=== PATIENT | female | born 1950 | race Caucasian/White ===

== ENCOUNTER → 2017-10-09 08:52 | Outpatient (CLI) | payer MEDICARE, OTHER, SELFPAY ==
--- NOTE | 2017-10-09 08:56 | US_ITS ---
US abdomen limited HISTORY: Right upper quadrant pain ITS.REASON: ABD PAIN,CRAMPING ORDERING PHYSICIAN: Carlton Wyatt PATIENT AGE: 67 years Comparison: None FINDINGS: PANCREAS: Unremarkable. No obvious mass or abnormal fluid collection. No ductal dilatation LIVER: No focal liver lesions demonstrated. Homogeneous echogenicity. No intrahepatic biliary ductal dilatation evident RIGHT KIDNEY: Unremarkable. Normal size and echogenicity. No hydronephrosis GALLBLADDER: There are 2 hyperechoic areas along the posterior aspect of the gallbladder wall. These do not shadow and could be either related to nonshadowing stones or polyps. They were not observed to move during the exam. Common bile duct is normal at 3 mm. No gallbladder wall thickening, pericholecystic fluid, or biliary dilatation. IMPRESSION: 1. Possible nonshadowing stones versus small gallbladder polyps measuring up to 5 mm. 2. Otherwise negative right upper quadrant ultrasound
== END ==
PROVIDERS: Family Provider Internal Medicine; PCP Internal Medicine; Visit Provider Internal Medicine
DX: R10.9 Unspecified abdominal pain (principal)
CPT/HCPCS: 76705

== ENCOUNTER → 2017-10-19 07:45 | Outpatient (CLI) | payer MEDICARE, OTHER, SELFPAY ==
[2017-10-19 07:50] LABS: Adenovirus F 40/41, stool Not Detected (NotDetected); Astrovirus Not Detected (NotDetected); Campylobacter Not Detected (NotDetected); Clostridium Difficile A/B, PCR Not Detected (NotDetected); Cryptosporidium Not Detected (NotDetected); Cyclospora Cayetanesis Not Detected (NotDetected); Entamoeba histolytica Not Detected (NotDetected); Enteroaggregative E coli Not Detected (NotDetected); Enteropathogenic E coli Not Detected (NotDetected); Enterotoxigenic E coli Not Detected (NotDetected); Giardia lamblia Not Detected (NotDetected); Norovirus Not Detected (NotDetected); Plesimonas Shigalloides, PCR Not Detected (NotDetected); Rotavirus A Not Detected (NotDetected); Salmonella, PCR Not Detected (NotDetected); Sapovirus Not Detected (NotDetected); Shiga-like toxin E coli Not Detected (NotDetected); Shigella Enterovasive E coli Not Detected (NotDetected); Vibrio Cholerae Not Detected (NotDetected); Vibrio, PCR Not Detected (NotDetected); Yersinia Entercolitica, PCR Not Detected (NotDetected)
== END ==
PROVIDERS: Visit Provider Surgery
DX: R14.0 Abdominal distension (gaseous) (principal); R19.7 Diarrhea, unspecified; R11.0 Nausea; K80.20 Calculus of gallbladder without cholecystitis without obstruction
CPT/HCPCS: 87507

== ENCOUNTER → 2017-10-30 12:32 | Outpatient (POV) | payer MEDICARE, OTHER, SELFPAY | PROVIDERS: Visit Provider Nurse Practitioner Acute Care | DX: Z00.00 Encounter for general adult medical examination without abnormal findings (principal) ==

== ENCOUNTER → 2017-11-08 11:56 | Outpatient (CLI) | payer MEDICARE, OTHER, SELFPAY ==
[2017-11-08 12:21] LABS: Eosinophils # 0.1 K/mm3 (0.0-0.4); Eosinophils % 3.1 % (0.1-12.0); Hematocrit 38.1 % (37.0-47.0); Hemoglobin 12.6 g/dL (12.2-16.2); Lymphocytes # 1.1 K/mm3 (0.7-4.5); Lymphocytes % 25.8 K/mm3 (10-50); Mean Platelet Volume 6.5 fl (7.4-10.4); Monocytes # 0.3 K/mm3 (0.1-1.0); Monocytes % 5.6 % (1.7-9.3); Neutrophils # 2.8 K/mm3 (1.8-7.8); Neutrophils % 64.5 % (37.0-80.0); Platelet Count 235 K/mm3 (142-424); Red Blood Count 4.33 M/mm3 (4.20-5.40); Red Cell Distribution Width 12.8 % (11.5-17.5); White Blood Count 4.4 K/mm3 (4.8-10.8)
[2017-11-08 13:08] LABS: Alanine Aminotransferase 34 U/L (12-78); Albumin/Globulin Ratio 1.3 (1.1-1.8); Alkaline Phosphatase 48 U/L (46-116); Anion Gap 10.8 mEq/L (5-15); Aspartate Amino Transferase 30 U/L (15-37); Bilirubin,Total 0.3 mg/dL (0.2-1.0); Blood Urea Nitrogen 21 mg/dL (7-18); Calcium 9.8 mg/dL (8.5-10.1); Carbon Dioxide 30 mmol/L (21.0-32.0); Chloride 96 mmol/L (98-107); Estimated Glomerular Filt Rate 50 ml/min (>60); GFR (African American) 60 ML/MIN (>60); Globulin 3.1 gm/dl (1.3-3.2); Glucose 96 mg/dL (74-106); Potassium 3.8 mmoL/L (3.5-5.1); Sodium 133 mmol/L (136-145); Total Protein,Serum 7.1 gm/dL (6.4-8.2)
== END ==
PROVIDERS: Visit Provider Surgery
DX: Z01.818 Encounter for other preprocedural examination (principal); K80.20 Calculus of gallbladder without cholecystitis without obstruction
CPT/HCPCS: 36415; 80053; 85025

== ENCOUNTER → 2017-12-21 13:09 | Outpatient (POV) | payer MEDICARE, OTHER, SELFPAY | PROVIDERS: Family Provider Internal Medicine; PCP Internal Medicine; Visit Provider Dermatology | DX: Z00.00 Encounter for general adult medical examination without abnormal findings (principal) ==

== ENCOUNTER → 2018-04-16 12:43 | Outpatient (POV) | payer MEDICARE, OTHER, SELFPAY | PROVIDERS: Visit Provider Nurse Practitioner Acute Care | DX: Z00.00 Encounter for general adult medical examination without abnormal findings (principal) ==

== ENCOUNTER → 2018-07-16 15:18 | Outpatient (POV) | payer MEDICARE, OTHER, SELFPAY | PROVIDERS: Visit Provider Nurse Practitioner Acute Care | DX: Z00.00 Encounter for general adult medical examination without abnormal findings (principal) ==

== ENCOUNTER → 2018-08-21 11:02 | Outpatient (CLI) | payer MEDICARE, OTHER, SELFPAY ==
--- NOTE | 2018-08-21 11:09 | XR_ITS ---
XR toe LT min 2V COMPARISON: None HISTORY: Pain and bruising to great toe TECHNIQUE: AP lateral and oblique views FINDINGS: There is mild diffuse soft tissue swelling medial aspect of the forefoot. The first metatarsal and proximal distal phalanx of the great toe appear intact with no evidence of recent or old fracture. There are no foreign bodies. IMPRESSION: Mild soft tissue swelling along the medial forefoot and about the first metatarsal head, no fracture seen
== END ==
PROVIDERS: PCP Internal Medicine; Visit Provider Internal Medicine
DX: M79.675 Pain in left toe(s) (principal)
CPT/HCPCS: 73660

== ENCOUNTER → 2018-10-30 13:36 | Outpatient (POV) | payer MEDICARE, OTHER, SELFPAY | PROVIDERS: Visit Provider Dermatology | DX: Z00.00 Encounter for general adult medical examination without abnormal findings (principal) ==

== ENCOUNTER → 2019-06-24 10:25 | Outpatient (POV) | payer MEDICARE, OTHER, SELFPAY | PROVIDERS: Visit Provider Nurse Practitioner Family | DX: Z00.00 Encounter for general adult medical examination without abnormal findings (principal) ==

== ENCOUNTER → 2019-10-24 10:21 | Outpatient (CLI) | payer MEDICARE, OTHER, SELFPAY ==
[2019-10-24 14:10] LABS: Coronavirus 19 IgG Antibody Negative (Negative); Coronavirus 19 IgM Antibody Negative (Negative)
== END ==
PROVIDERS: Visit Provider Internal Medicine Gastroenterology
DX: Z01.818 Encounter for other preprocedural examination (principal); Z12.11 Encounter for screening for malignant neoplasm of colon
CPT/HCPCS: 36415; 86328

== ENCOUNTER 2019-10-25 06:53 | Day surgery (SDC) | payer MEDICARE, OTHER, SELFPAY ==
[2019-10-22 10:28] VITALS: BMI 21.1
--- NOTE | 2019-10-23 09:34 | SUR.PREOP ---
10/23/2019 @ 4869--PHONE CALL MADE TO PATIENT. PATIENT UNDERSTANDS THAT LAB WORK AND COVID TESTING NEEDS TO BE COMPLETED @ 1030 ON 10/24/2019. PATIENT UNDERSTANDS IF LAB WORK AND COVID-19 TESTS ARE NOT COMPLETED BY 12PM ON THAT DATE, THE SURGERY SCHEDULED WILL BE CANCELLED AND RESCHEDULED FOR ANOTHER TIME.
[2019-10-25] VITALS (7 sets, daily range): BP systolic 87–127; BP diastolic 48–78; PULSE 59–70; RESP 16–18; TEMP 36.1–36.8; O2SAT 94–100
--- NOTE | 2019-10-25 08:02 | HMH.ANESCL ---
[facility] Anesthesia Checklist - Structural Data Admitted From: Home Planned Operative Procedure/s: colonoscopy Consent for Planned Operative Procedure(s) Verified: Yes - Additional verifications Anesthesia Reactions: No Hx Blood Transfusions: No Blood Transfusion Reaction: No - Airway Assessment C-Spine Mobility Assessed: Yes TMJ Mobility Assessed: Yes Dentition: Good Dentition - Neurological Assessment Level of Consciousness: Awake, Alert, Appropriate - Anesthesia Plan Anesthesia Risk discussed: Yes Anesthesia Plan: Verified ASA Class: II Anesthesia Type: MAC [facility] History I have reviewed the patient's past medical history: Yes Medical History: Reports:: Hyperlipidemia, Hypertension Denies:: Cancer, Diabetes Mellitus Type 1, Diabetes Mellitus Type 2, Internal Pacemaker, MRSA, Seizures *Have you ever received a pneumonia vaccine?: Yes *Have you received a flu vaccine this season?: Yes Other Medical History: Reports: Hypothyroidism, Other. Denies: Blood Transfusion Reaction Anesthesia experience/problems:: none Laterality Cases: Right: Total Hip Replacement, Bilateral: Other Other Surgeries: Yes: , Other. No: Pacemaker Amputation: No Fractures: No - *Social History Smoking Status: Never smoker Alcohol Intake: never Substance Use Type: denies use *Occupational Status:: retired Housing: house *Travel in the last 8 weeks: None Family Hx:: Coronary Artery Disease, Heart Attack
--- NOTE | 2019-10-25 08:07 | HMH.PROC ---
[facility] Procedure Note Procedure Note:: Colonoscopy Procedure Report: Colonoscopy with cold snare polypectomy Endoscopist: Chong Mcpherson II, MD Referring physician: Carlton Wyatt MD Date of Procedure: October 25, 2019 Equipment: Olympus 180 variable stiffness pediatric colonoscope Sedation: MAC sedation Indication: Mrs. Walton is a 69-year-old female who is here for follow-up surveillance/screening colonoscopy. The patient's last colonoscopy was 5 years ago (Dr. Darian Hernandez in [place]) and was normal without polyps. The patient will have occasional constipation and this may be followed by several days or sometimes more than a week of diarrhea. She has had more diarrhea recently. In the past she is tried probiotics, fiber, WelChol and Xifaxan. The patient reports no rectal bleeding, weight loss or family history of colon cancer. She does get some abdominal discomfort if she is constipated. She did have an EGD with me in October 2017 and was found to have very short segment Diane's esophagus (single tongue of salmon-colored mucosa). She is on Prevacid once or twice daily. Procedure: Prior to the procedure, a history and physical exam was performed, and patient's medications and allergies were reviewed. The risks, benefits and alternatives of the sedation and procedure were discussed with the patient. All questions were answered and informed consent was obtained. The patient was brought to the procedure room. Patient identification and proposed procedure were verified by the physician and the nurse. The patient was placed in a left lateral decubitus position and the scope was passed under direct vision. Throughout the procedure, the patient's blood pressure, pulse, and oxygen saturations were monitored continuously. The colonoscopy was accomplished without difficulty. The patient tolerated the procedure well. Findings: On digital rectal examination there was normal rectal tone. There were no external hemorrhoids. The colonoscope was introduced through the anal canal to the rectum and advanced to the cecum. The ileocecal valve and appendiceal orifice were identified. The scope was advanced a short distance into the ileum which appeared grossly normal. The scope was then withdrawn into the colon. The cecum was normal. There was a diminutive 3 mm polyp in the ascending colon. There was a 2 mm polyp in the descending colon. Both of these were removed via cold snare polypectomy. The remainder of the colonic mucosa was normal. Upon retroflexion within the rectum there were grade 1 internal hemorrhoids.The preparation was excellent throughout with [place] Preparation Score of 9. The cecal time was 10 minutes. Impression: 1. Diminutive colonic polyps x2 Plan: I will follow up the polyp pathology and recommend repeat colonoscopy again in 7-10 years based upon the polyp histology. We will discuss additional treatment for the patient's IBS. I would encourage bulk fiber.
== END 2019-10-25 09:25 | disposition home or self-care (01) ==
LOC: OUTP 06:55
PROVIDERS: PCP Internal Medicine; Visit Provider Internal Medicine Gastroenterology
PROC: 0DJD8ZZ Inspection of Lower Intestinal Tract, Via Natural or Artificial Opening Endoscopic (ICD-10-PCS; CPT 45378; principal; 2019-10-25 08:00)
DX: Z12.11 Encounter for screening for malignant neoplasm of colon (principal); K63.5 Polyp of colon; K64.0 First degree hemorrhoids; I10 Essential (primary) hypertension; E78.5 Hyperlipidemia, unspecified; K21.9 Gastro-esophageal reflux disease without esophagitis; J45.909 Unspecified asthma, uncomplicated; D64.9 Anemia, unspecified; E03.9 Hypothyroidism, unspecified; Z82.49 Family history of ischemic heart disease and other diseases of the circulatory system; Z96.641 Presence of right artificial hip joint; Z79.899 Other long term (current) drug therapy
CPT/HCPCS: 45385; 88305; J2704

== ENCOUNTER → 2019-12-10 10:18 | Outpatient (CLI) | payer MEDICARE, OTHER, SELFPAY ==
[2019-12-10 10:24] LABS: Adenovirus F 40/41, stool Not Detected (NotDetected); Astrovirus Not Detected (NotDetected); Campylobacter Not Detected (NotDetected); Clostridium Difficile A/B, PCR Not Detected (NotDetected); Cryptosporidium Not Detected (NotDetected); Cyclospora Cayetanesis Not Detected (NotDetected); Entamoeba histolytica Not Detected (NotDetected); Enteroaggregative E coli Not Detected (NotDetected); Enteropathogenic E coli Not Detected (NotDetected); Giardia lamblia Not Detected (NotDetected); Norovirus Not Detected (NotDetected); Plesimonas Shigalloides, PCR Not Detected (NotDetected); Rotavirus A Not Detected (NotDetected); Salmonella, PCR Not Detected (NotDetected); Sapovirus Not Detected (NotDetected); Shigella Enterovasive E coli Not Detected (NotDetected); Vibrio Cholerae Not Detected (NotDetected); Vibrio, PCR Not Detected (NotDetected); Yersinia Entercolitica, PCR Not Detected (NotDetected)
[2019-12-10 17:14] LABS: Enterotoxigenic E coli Detected (NotDetected); Shiga-like toxin E coli Detected (NotDetected)
== END ==
PROVIDERS: Visit Provider Internal Medicine
DX: R19.7 Diarrhea, unspecified (principal); A04.2 Enteroinvasive Escherichia coli infection; A04.1 Enterotoxigenic Escherichia coli infection; B96.21 Shiga toxin-producing Escherichia coli [E. coli] [STEC] O157 as the cause of diseases classified elsewhere
CPT/HCPCS: 87177; 87205; 87506

== ENCOUNTER 2019-12-10 14:00 | Outpatient (RCR) | payer MEDICARE, OTHER, SELFPAY | END 2019-12-10 14:05 | disposition home or self-care (01) | LOC: PT 14:00 | PROVIDERS: PCP Internal Medicine; Visit Provider Physician Assistant Surgical | DX: Z98.890 Other specified postprocedural states (principal); M25.551 Pain in right hip | CPT/HCPCS: 97110; 97163 ==

== ENCOUNTER → 2019-12-23 09:21 | Outpatient (POV) | payer MEDICARE, OTHER, SELFPAY | PROVIDERS: Visit Provider Nurse Practitioner Family | DX: Z00.00 Encounter for general adult medical examination without abnormal findings (principal) ==

== ENCOUNTER → 2020-03-17 11:02 | Outpatient (POV) | payer MEDICARE, OTHER, SELFPAY | PROVIDERS: Visit Provider Dermatology | DX: Z00.00 Encounter for general adult medical examination without abnormal findings (principal) ==

== ENCOUNTER → 2020-05-25 10:11 | Outpatient (CLI) | payer MEDICARE, OTHER, SELFPAY ==
--- NOTE | 2020-05-25 10:24 | XR_ITS ---
PROCEDURE: XR LUMBAR SPINE MIN 4V CLINICAL INDICATION: LOW BACK PAIN/ STIFFNESS COMPARISON: CR LS5 LUMBAR SPINE 5 VIEWS from 07/18/2016 FINDINGS: No fracture or dislocation. No lytic or blastic change. There is normal mineralization. There is mild sclerosis of the superior endplate at L4-L3 and L2 with some cortical irregularity. Mild facet arthritic changes are present at L3-L4 and L5. There has been a total right hip replacement. Prior cholecystectomy. Other findings:None. IMPRESSION: Mild degenerative changes lumbar spine as described above Dictated by: Bryan Carreon MD 05/25/2020 16:47 Bryan Carreon MD in [place] 05/25/2020 16:47
== END ==
PROVIDERS: PCP Internal Medicine; Visit Provider Internal Medicine
DX: M54.5 Low back pain (principal)
CPT/HCPCS: 72110

== ENCOUNTER → 2020-06-08 10:56 | Outpatient (CLI) | payer MEDICARE, OTHER, SELFPAY ==
--- NOTE | 2020-06-08 | XR_ITS ---
PROCEDURE: XR SHOULDER RT MIN 2V CLINICAL INDICATION: BILATERAL SHOULDER PAIN COMPARISON: No exams were available for comparison FINDINGS: No fracture or dislocation. No lytic or blastic change. There is normal mineralization. There are mild osteoarthritic changes the acromioclavicular joint with mild periarticular calcification superiorly. The glenohumeral joint has an unremarkable appearance. Other findings:None. IMPRESSION: Minimal osteoarthritic change of the acromioclavicular joint with mild periarticular calcification Dictated by: Bryan Carreon MD 06/08/2020 11:59 Bryan Carreon MD in [place] 06/08/2020 11:59
--- NOTE | 2020-06-08 | XR_ITS ---
PROCEDURE: XR SHOULDER LT MIN 2V CLINICAL INDICATION: BILATERAL SHOULDER PAIN COMPARISON: No exams were available for comparison FINDINGS: No fracture or dislocation. No lytic or blastic change. There is normal mineralization. There are mild osteoarthritic changes of the acromioclavicular joint with minimal periarticular ossification superiorly. The glenohumeral joint has an unremarkable appearance. Other findings:None. IMPRESSION: Mild osteoarthritis the acromioclavicular joint Dictated by: Bryan Carreon MD 06/08/2020 11:55 Bryan Carreon MD in [place] 06/08/2020 11:55
== END ==
PROVIDERS: PCP Internal Medicine; Visit Provider Internal Medicine
DX: M25.512 Pain in left shoulder (principal); M25.511 Pain in right shoulder
CPT/HCPCS: 73030

== ENCOUNTER → 2020-06-22 10:37 | Outpatient (CLI) | payer MEDICARE, OTHER, SELFPAY ==
[2020-06-22 11:31] LABS: Erythrocyte Sedimentation Rate 77 mm/hr (0-30)
[2020-06-22 11:45] LABS: C-Reactive Protein 76.2 mg/L (0-4)
== END ==
PROVIDERS: Visit Provider Internal Medicine
DX: M54.2 Cervicalgia (principal); M25.511 Pain in right shoulder
CPT/HCPCS: 36415; 85651; 86140

== ENCOUNTER → 2020-06-22 11:03 | Outpatient (POV) | payer MEDICARE, OTHER, SELFPAY | PROVIDERS: Visit Provider Nurse Practitioner Family | DX: Z00.00 Encounter for general adult medical examination without abnormal findings (principal) ==

== ENCOUNTER → 2020-06-23 10:47 | Outpatient (CLI) | payer MEDICARE, OTHER, SELFPAY ==
[2020-06-27 04:19] LABS: QuantiFERON-TB Gold Plus Negative (Negative)
== END ==
PROVIDERS: Visit Provider Internal Medicine
DX: M35.3 Polymyalgia rheumatica (principal)
CPT/HCPCS: 36415; 86480

== ENCOUNTER → 2020-07-20 11:22 | Outpatient (CLI) | payer MEDICARE, OTHER, SELFPAY ==
[2020-07-20 11:53] LABS: Basophils # 0.1 K/mm3 (0-0.2); Basophils % 0.7 % (0.1-2.0); Eosinophils # 0.1 K/mm3 (0.0-0.4); Eosinophils % 0.9 % (0.1-12.0); Hematocrit 36.9 % (37.0-47.0); Hemoglobin 12.4 g/dL (12.2-16.2); Lymphocytes # 2.9 K/mm3 (0.7-4.5); Lymphocytes % 27.5 % (10-50); Mean Corpuscular HGB Conc 33.6 g/dL (31.8-35.4); Mean Corpuscular Hemoglobin 30.3 pg (27.0-31.2); Mean Corpuscular Volume 90.2 fl (81-99); Mean Platelet Volume 7.1 fl (7.4-10.4); Monocytes # 0.6 K/mm3 (0.1-1.0); Monocytes % 5.7 % (1.7-9.3); Neutrophils # 6.9 K/mm3 (1.8-7.8); Neutrophils % 65.3 % (37.0-80.0); Platelet Count 319 K/mm3 (142-424); Red Blood Count 4.08 M/mm3 (4.20-5.40); Red Cell Distribution Width 14.2 % (11.5-17.5); White Blood Count 10.5 K/mm3 (4.8-10.8)
[2020-07-20 12:37] LABS: Chloride 96 mmol/L (98-107); Potassium 4.1 mmoL/L (3.5-5.1); Sodium 133 mmol/L (136-145)
[2020-07-20 12:40] LABS: Anion Gap 10.1 mEq/L (5-15); Blood Urea Nitrogen 30 mg/dl (7-17); Carbon Dioxide 31 mmol/L (22.0-30.0); Estimated Glomerular Filt Rate 45 ml/min (>60); GFR (African American) 54 ML/MIN (>60)
[2020-07-20 12:41] LABS: Calcium 10.4 mg/dl (8.4-10.2); Glucose 87 mg/dl (74-100)
[2020-07-20 13:01] LABS: Erythrocyte Sedimentation Rate 23 mm/hr (0-30)
[2020-07-20 13:13] LABS: Thyroid Stimulating Hormone 0.07 uIU/mL (0.465-4.68)
== END ==
PROVIDERS: Visit Provider Internal Medicine
DX: M35.3 Polymyalgia rheumatica (principal); E03.9 Hypothyroidism, unspecified; I10 Essential (primary) hypertension
CPT/HCPCS: 36415; 80048; 84443; 85025; 85651

== ENCOUNTER 2020-08-04 10:00 | Outpatient (RCR) | payer MEDICARE, OTHER, SELFPAY | END 2020-12-02 14:45 | disposition home or self-care (01) | LOC: PT 10:00 | PROVIDERS: PCP Internal Medicine; Visit Provider Internal Medicine | DX: M25.512 Pain in left shoulder (principal); M25.511 Pain in right shoulder | CPT/HCPCS: 97010; 97014; 97033; 97035; 97110; 97163; 97164; G0283 ==

== ENCOUNTER → 2020-10-17 10:24 | Outpatient (CLI) | payer MEDICARE, OTHER, SELFPAY ==
[2020-10-17 10:38] LABS: Adenovirus F 40/41, stool Not Detected (NotDetected); Astrovirus Not Detected (NotDetected); Campylobacter Not Detected (NotDetected); Clostridium Difficile A/B, PCR Not Detected (NotDetected); Cryptosporidium Not Detected (NotDetected); Cyclospora Cayetanesis Not Detected (NotDetected); Entamoeba histolytica Not Detected (NotDetected); Enteroaggregative E coli Not Detected (NotDetected); Enteropathogenic E coli Not Detected (NotDetected); Enterotoxigenic E coli Not Detected (NotDetected); Giardia lamblia Not Detected (NotDetected); Norovirus Not Detected (NotDetected); Plesimonas Shigalloides, PCR Not Detected (NotDetected); Rotavirus A Not Detected (NotDetected); Salmonella, PCR Not Detected (NotDetected); Sapovirus Not Detected (NotDetected); Shiga-like toxin E coli Not Detected (NotDetected); Shigella Enterovasive E coli Not Detected (NotDetected); Vibrio Cholerae Not Detected (NotDetected); Vibrio, PCR Not Detected (NotDetected); Yersinia Entercolitica, PCR Not Detected (NotDetected)
== END ==
PROVIDERS: Visit Provider Internal Medicine Gastroenterology
DX: R19.7 Diarrhea, unspecified (principal); R15.2 Fecal urgency
CPT/HCPCS: 87507

== ENCOUNTER → 2020-11-09 13:54 | Outpatient (POV) | payer MEDICARE, OTHER, SELFPAY | PROVIDERS: Visit Provider Nurse Practitioner Family | DX: Z00.00 Encounter for general adult medical examination without abnormal findings (principal) ==

== ENCOUNTER 2021-01-28 09:08 | Emergency (ER) | payer MEDICARE, OTHER, SELFPAY ==
[2021-01-28 09:15] VITALS: BP 126/68; PULSE 88; RESP 18; TEMP 36.8; O2SAT 99; BMI 20.2
--- NOTE | 2021-01-28 09:54 | HMH.EDUTC ---
[facility] [place] Clinical Impression: Bronchitis Sinusitis Qualifiers: Sinusitis location: unspecified location Chronicity: unspecified Qualified Code(s): J32.9 - Chronic sinusitis, unspecified Disposition: Home, Self-Care Condition on Discharge: Good Instructions: Sinusitis, DI for Sinusitis, Acute Bronchitis Additional Instructions: *Monitor Temp, Over the counter Motrin or Tylenol as directed/as needed Tylenol every 4 hours and Motrin every 6 hours (as long as your family doctor has told you that you can take it) for fever or pain. and straight to ER if unable to lower temp less than 101.0 after medication given *Warm salt water gargles may help to soothe the throat *Throat Lozenges *Warm fluids like tea with honey may help to soothe the throat *Sleep elevated *Humidifier/Vaporizer Follow up IMMEDIATELY for new or worsening symptoms or no Noticeable improvement over the next 48-72 hours. 911 for difficulty breathing or swallowing You were tested for today for COVID19 your test result should be back in the next 24-48 hours, you may call to the [facility] [[email or web address]] to see if your test results are back in the next 48 hours [phone] [facility] [[email or web address]] hours are 9am-9pm You was given a handout with instructions for Self Quarantine and Self isolation for while you wait on test results and what to do if they are positive If you are positive the Health Dept will be contacting you also Make sure to take your Vitamins Vit. C Vit D and Zinc if you can take them Prescriptions: Azithromycin [Z-Nico 250mg Tab] 250 mg PO DIRECTED #6 tab Transmission Status: Pending to [facility] Referrals: Carlton Wyatt [Primary Care Provider] - As needed Time of Disposition: 10:05 Medical Decision Making - Abe Inquiry Pt receiving controlled substance: No Abe was queried for this patient: No Vital Signs: 01/28/21 09:15 Temperature 98.2 F Temperature Source Oral Pulse Rate [Right Brachial] 88 Respiratory Rate 18 Blood Pressure [Right Arm] 126/68 Blood Pressure Mean [Right Arm] 87 Blood Pressure Source [Right Arm] Automatic Cuff Blood Pressure Position [Right Arm] Sitting 02 Sat by Pulse Oximetry 99 Oxygen Delivery Method Room Air Orders (Tests/Meds): ORDERS Category Date Time Status Covid-19 Nasal PCR ([facility]) Routine Lab 01/28/21 09:34 Received Medical Decision Narrative: patient state that she has taken azithromycin before without complications or reactions [facility] [place]PI - General Stated complaint: cough, runny nose Time Seen by Provider: 01/28/21 09:54 Mode of Arrival: Ambulatory Source of Information: Patient Limitations: No Limitations Description of Symptoms (Recalled from Triage Doc. by RN): PATIENT C/O COUGH AND RUNNY NOSE. REQUESTING COVID TEST. STATES HER DAUGHTER GOT OUT OF QUARANTINE LAST WEEK HEENT Symptoms (Recalled from RN notes): Yes Resp Symptoms (Recalled from RN notes): No Skin Symptoms (Recalled from RN notes): No MS Symptoms (Recalled from RN notes): No Functional Status (Recalled from RN notes): WNL - History of Present Illness Provider Complaint: Patient states that she has been having sinus congestion and pressure off and on for over a week State that for the last several days she has been having runny nose and cough States that feels like when she gets bronchitis but her daughter recently tested positive for COVID and just got off quarantine so she wanted to get checked to make sure she didnt have it - Related Data Home Medications Medication Instructions Recorded Confirmed Atorvastatin Calcium [Atorvastatin 20 mg PO WEEKLY 09/22/17 02/27/20 20mg Tab] Telmisartan [Micardis] 20 mg PO DAILY 09/22/17 02/27/20 levothyroxine 75 mcg tablet 88 mcg PO DAILY tab 10/18/17 02/27/20 lorazepam 0.5 mg tablet 1 mg PO DAILY tab 10/18/17 02/27/20 Multivitamin [Multivitamins] 1 each PO DAILY 12/21/17 02/27/20 Potassium Citrate [Urocit-K] 10 meq PO BID 12/21/17 02/27/20 l Gasseri/B Bifidum/B Longum 1 each P
[2021-01-28 10:10] VITALS: BP 126/68; PULSE 88; RESP 18; TEMP 36.8; O2SAT 99
== END 2021-01-28 10:13 | disposition home or self-care (01) ==
PROVIDERS: Emergency Provider Nurse Practitioner; PCP Internal Medicine
DX: J20.9 Acute bronchitis, unspecified (principal); J32.9 Chronic sinusitis, unspecified; Z20.822 Contact with and (suspected) exposure to COVID-19; E78.5 Hyperlipidemia, unspecified; I10 Essential (primary) hypertension; E03.9 Hypothyroidism, unspecified
CPT/HCPCS: G0463; 99202; U0003

== ENCOUNTER → 2021-02-15 13:11 | Outpatient (CLI) | payer MEDICARE, OTHER, SELFPAY ==
[2021-02-15 14:20] LABS: Basophils # 0.1 K/mm3 (0-0.2); Basophils % 0.5 % (0.1-2.0); Eosinophils % 0.3 % (0.1-12.0); Hematocrit 32.6 % (37.0-47.0); Hemoglobin 10.7 g/dL (12.2-16.2); Lymphocytes # 1.2 K/mm3 (0.7-4.5); Lymphocytes % 9.6 % (10-50); Mean Corpuscular HGB Conc 32.8 g/dL (31.8-35.4); Mean Corpuscular Hemoglobin 30.3 pg (27.0-31.2); Mean Corpuscular Volume 92.4 fl (81-99); Monocytes # 0.7 K/mm3 (0.1-1.0); Monocytes % 5.3 % (1.7-9.3); Neutrophils # 10.5 K/mm3 (1.8-7.8); Neutrophils % 84.4 % (37.0-80.0); Platelet Count 473 K/mm3 (142-424); Red Blood Count 3.53 M/mm3 (4.20-5.40); Red Cell Distribution Width 13.4 % (11.5-17.5); White Blood Count 12.4 K/mm3 (4.8-10.8)
[2021-02-15 15:20] LABS: Erythrocyte Sedimentation Rate > 140 mm/hr (0-30)
[2021-02-15 15:27] LABS: Alanine Aminotransferase 21 U/L (12-78); Albumin Level 3.9 g/dl (3.5-5.0); Albumin/Globulin Ratio 1.3 (1.1-1.8); Alkaline Phosphatase 61 U/L (38-126); Anion Gap 12.9 mEq/L (5-15); Aspartate Amino Transferase 29 U/L (14-36); Bilirubin,Total 0.4 mg/dl (0.2-1.3); Blood Urea Nitrogen 20 mg/dl (7-17); Calcium 10.2 mg/dl (8.4-10.2); Carbon Dioxide 30 mmol/L (22.0-30.0); Chloride 91 mmol/L (98-107); Estimated Glomerular Filt Rate 55 ml/min (>60); GFR (African American) 66 ML/MIN (>60); Glucose 106 mg/dl (74-100); Potassium 3.9 mmoL/L (3.5-5.1); Sodium 130 mmol/L (136-145); Total Protein,Serum 6.9 g/dl (6.3-8.2)
[2021-02-15 15:33] LABS: C-Reactive Protein 128.6 mg/L (0-4)
== END ==
PROVIDERS: Visit Provider Nurse Practitioner Family
DX: M35.3 Polymyalgia rheumatica (principal)
CPT/HCPCS: 36415; 80053; 85025; 85651; 86140

== ENCOUNTER 2021-02-20 17:29 | Emergency (ER) | payer MEDICARE, OTHER, SELFPAY ==
[2021-02-20 17:40] VITALS: BP 132/74; PULSE 89; RESP 18; TEMP 36.8; O2SAT 98; BMI 20.2
[2021-02-20 18:00] VITALS: BP 145/81; PULSE 89; RESP 16; O2SAT 100; BMI 20.2
[2021-02-20 18:01] VITALS: BMI 20.2
--- NOTE | 2021-02-20 18:01 | XR_ITS ---
PROCEDURE INFORMATION: Exam: XR Chest Exam date and time: 02/20/2021 6:01 PM Age: 71 years old Clinical indication: Cough; Additional info: Chest pain TECHNIQUE: Imaging protocol: XR of the chest. Views: 2 views. COMPARISON: CR CXR CHEST(2 VIEWS-NOT PORTABLE) 07/22/2016 10:47 AM FINDINGS: Lungs: Hyperexpanded lungs with flattening of the diaphragm and increased retrosternal airspace, consistent with chronic air trapping. Chronic bronchial thickening. No appreciable pulmonary edema. No consolidation. Pleural spaces: Chronic blunting of the costophrenic sulci likely reflects pleuroparenchymal scarring. No definite pleural effusion. No pneumothorax. Heart/Mediastinum: Cardiomediastinal silhouette is unchanged. Bones/joints: No acute osseous abnormality. Soft tissues: Unremarkable. IMPRESSION: 1. No evidence of acute cardiopulmonary disease. 2. Chronic pulmonary findings compatible with COPD.
--- NOTE | 2021-02-20 18:03 | ECG_ITS ---
APPROVED REPORT Exam: Resting ECG HR:78 bpm ECG Measurements Heart Rate 78 AXES MA 168 P 72 QRSd 82 QRS 4 QT 370 T 68 QTc 421 Conclusion Normal sinus rhythm with sinus arrhythmia Normal ECG Electronically signed by : Amadeo Cooper MD 02/21/2021 09:17:43
--- NOTE | 2021-02-20 18:04 | HMH.EDGENADL ---
ED Disposition Clinical Impression: Atypical chest pain Disposition: Home, Self-Care Condition on Discharge: Good Instructions: DI for Atypical Chest Pain Additional Instructions: Additional instructions for CHEST PAIN: See your physician as soon as possible for further evaluation. Return immediately if worsening chest pain, vomiting, shortness of breath, fever, coughing of blood. Referrals: Carlton Wyatt [Primary Care Provider] - - Critical Care Critical Care Time: No Attestation: On 02/20/21, the high probability of a clinically significant, sudden or life threatening deterioration of the following system(s) required my full and direct attention, intervention and personal management. The time I documented below is in addition to time spent performing reported procedures but includes the following listed in this critical care notation. Medical Decision Making - Abe Inquiry Pt receiving controlled substance: No Vital Signs: 02/20/21 17:40 02/20/21 18:00 Temperature 98.2 F Temperature Source Oral Pulse Rate [Left Radial] 89 Pulse Rate [Right Brachial] 89 Respiratory Rate 18 16 Blood Pressure [Right Arm] 132/74 145/81 H Blood Pressure Mean [Right Arm] 93 102 Blood Pressure Source [Right Arm] Automatic Cuff Automatic Cuff Blood Pressure Position [Right Arm] Sitting Sitting 02 Sat by Pulse Oximetry 98 100 Oxygen Delivery Method Room Air Room Air - Lab Data Lab Results 02/20/21 18:10: Sodium 132 L, Potassium 3.3 L, Chloride 91 L, Carbon Dioxide 32 H, Anion Gap 12.3, BUN 13, Creatinine 0.90, Estimated Creat Clear 39, Estimated GFR 62, Est GFR ( Amer) 75, Glucose 80, Calcium 9.8, Troponin I < 0.01 02/20/21 18:10: WBC 8.4, RBC 3.46 L, Hgb 10.2 L, Hct 31.6 L, MCV 91.5, MCH 29.5, MCHC 32.3, RDW 13.4, Plt Count 496 H, MPV 7.8, Neut % (Auto) 70.0, Lymph % (Auto) 17.8, Carroll % (Auto) 10.6 H, Eos % (Auto) 0.8, Baso % (Auto) 0.8, Neut # (Auto) 5.9, Lymph # (Auto) 1.5, Carroll # (Auto) 0.9, Eos # (Auto) 0.1, Baso # (Auto) 0.1 02/20/21 18:26: SARS-CoV-2 (PCR) Not detected, Influenza A Untype (PCR) Not detected, Influenza Type B (PCR) Not detected Result diagrams: 02/20/21 18:10 02/20/21 18:10 Orders (Tests/Meds): ORDERS Category Date Time Status Troponin I Q3H Lab 02/20/21 20:46 Received Troponin I Q3H Lab 02/21/21 00:15 Ordered - Radiology Data #1 Image(s): Chest Image Reviewed: Yes I reviewed the patient's radiology image Preliminary Findings: Normal/NAD - ECG Data Tracing #1 EKG interpreted by Raman Carbajal MD: Rhythm: sinus Rate: 78 [place]: normal Ectopy: none Conduction: normal ST Segment Changes: none T Wave Changes: none Q Waves: none No evidence of acute ischemia or injury Normal electrocardiogram - Reevaluation(s) Time: 20:10 Reevaluation #1: Remains asymptomatic. Discussed disposition. She would prefer to be discharged. I recommend discharge with outpatient work-up if second troponin is negative. - DILIP Score for Non-Stemi Age of Patient: 70-79 years old Heart Rate: 70-89 bpm Systolic Blood Pressure: 120-139 mmhg Serum Creatinine: 0.80-1.19 mg/dl CHF [place] Class: I-No CHF Other Risk Factors: None Non-Stemi Risk Score: 125 General Adult HPI - General Stated complaint: covid test, cough,MACIAS, muscle aches Time Seen by Provider: 02/20/21 18:04 - History of Present Illness HPI narrative: States that she had chest pressure that started at 3 PM associated with some discomfort in her left arm at and above her elbow. Symptoms lasted until she got here and then went away. Denies associated shortness of breath, nausea, or diaphoresis. Says that she has also had some increase in her fibromyalgia pain in the back of her neck. No jaw pain. Says that she had similar symptoms back in 2007 and her primary care provider, Dr. Wyatt, center here and she had a negative work-up. She has had a stress test years ago, but has never had a heart cath. She
[2021-02-20 18:16] LABS: Basophils # 0.1 K/mm3 (0-0.2); Basophils % 0.8 % (0.1-2.0); Eosinophils # 0.1 K/mm3 (0.0-0.4); Eosinophils % 0.8 % (0.1-12.0); Hematocrit 31.6 % (37.0-47.0); Hemoglobin 10.2 g/dL (12.2-16.2); Lymphocytes # 1.5 K/mm3 (0.7-4.5); Lymphocytes % 17.8 % (10-50); Mean Corpuscular HGB Conc 32.3 g/dL (31.8-35.4); Mean Corpuscular Hemoglobin 29.5 pg (27.0-31.2); Mean Corpuscular Volume 91.5 fl (81-99); Mean Platelet Volume 7.8 fl (7.4-10.4); Monocytes # 0.9 K/mm3 (0.1-1.0); Monocytes % 10.6 % (1.7-9.3); Neutrophils # 5.9 K/mm3 (1.8-7.8); Platelet Count 496 K/mm3 (142-424); Red Blood Count 3.46 M/mm3 (4.20-5.40); Red Cell Distribution Width 13.4 % (11.5-17.5); White Blood Count 8.4 K/mm3 (4.8-10.8)
[2021-02-20 18:26] LABS: Anion Gap 12.3 mEq/L (5-15); Blood Urea Nitrogen 13 mg/dl (7-17); Calcium 9.8 mg/dl (8.4-10.2); Carbon Dioxide 32 mmol/L (22.0-30.0); Chloride 91 mmol/L (98-107); Creatinine Clearance Estimated 39 mL/min (50-200); Estimated Glomerular Filt Rate 62 ml/min (>60); GFR (African American) 75 ML/MIN (>60); Glucose 80 mg/dl (74-100); Potassium 3.3 mmoL/L (3.5-5.1); Sodium 132 mmol/L (136-145)
[2021-02-20 18:40] LABS: Troponin I < 0.01 ng/ml (0.00-0.034)
[2021-02-20 18:43] LABS: Coronavirus 19, PCR Not Detected (NotDetected); Influenza A, PCR Not Detected (NotDetected); Influenza B, PCR Not Detected (NotDetected)
[2021-02-20 21:13] LABS: Troponin I < 0.01 ng/ml (0.00-0.034)
[2021-02-20 21:34] VITALS: BP 139/82; PULSE 81; RESP 18; TEMP 36.8; O2SAT 98
[2021-02-22 15:53] LABS: Iron 25 ug/dL (37-170)
[2021-02-22 16:03] LABS: Total Iron Binding Capacity 246 ug/dL (265-497)
[2021-02-22 17:12] LABS: Vitamin B12 672 pg/mL (239-931)
== END 2021-02-20 21:36 | disposition home or self-care (01) ==
LOC: UTC 17:32 → ER 17:55
PROVIDERS: Emergency Provider Emergency Medicine; PCP Internal Medicine
DX: R07.89 Other chest pain (principal); I10 Essential (primary) hypertension; E78.5 Hyperlipidemia, unspecified; M79.7 Fibromyalgia; E03.9 Hypothyroidism, unspecified; Z79.899 Other long term (current) drug therapy; Z82.49 Family history of ischemic heart disease and other diseases of the circulatory system; Z88.2 Allergy status to sulfonamides
CPT/HCPCS: 71046; 80048; 82607; 83540; 83550; 84484; 85025; 93005; 99283; C9803; U0003; U0005

== ENCOUNTER → 2021-03-08 13:51 | Outpatient (POV) | payer MEDICARE, OTHER, SELFPAY ==
--- NOTE | 2021-03-08 13:57 | HMH.PMCON ---
Assessment and Plan (1) Neck pain Status: Chronic Category: Medical Code(s): M54.2 - Cervicalgia (2) Cervical radiculopathy Status: Chronic Category: Medical Code(s): M54.12 - Radiculopathy, cervical region (3) Back pain Status: Chronic Category: Medical Code(s): M54.9 - Dorsalgia, unspecified (4) Lumbar radiculopathy Status: Chronic Category: Medical Code(s): M54.16 - Radiculopathy, lumbar region - Assessment and plan all Dx Assessment and Plan for all problems:: Patient is a 71-year-old white female who presents for consultation for neck and low back pain with cervical and lumbar radicular symptoms. She has tried physical therapy with no relief and is currently undergoing aerobic therapy. She continues to home stretch. She has also tried oral medications of tramadol. She is unable to take anti-inflammatories due to insufficient renal function. She uses ice and heat therapies. Patient has not gotten any significant relief. We will order an MRI of her cervical and lumbar spine to determine pathology of pain. We will see her back after imaging for reevaluation symptoms and discussion/plan of care. Patient has been instructed to contact the clinic with any concerns before the next appointment. Dr. Perkins has reviewed this note and agrees with this plan of care. This note was dictated using voice recognition software and make contain errors or omissions. HPI - Data of Consult Patient: new to practice Consult date: 03/08/21 Requesting Physician: Madina Contreras APRN Primary Care Provider: Carlton Wyatt - Consult Narrative History of present illness: Ms. Walton is a 71 year old female presents today for consultation for for chronic neck pain with radiation into bilateral upper extremities with numbness in left hand as well as low back pain with radiation into bilateral buttock, hips, and calves. Patient says she has had this pain for many years which is progressively worsened. She reports that her neck pain is worse for sleeping at night. She says that she has a stiffness and aching sensation. The pain in the patient's low back is worse with standing walking and for prolonged movement. The patient says that the pain does radiate into her bilateral buttock, hips, groin, and calves. She does rate her pain a 5 or 6 out of 10. She says when cleaning or doing dishes her pain is worse. She does have a history of a hip replacement on the right side and has been told she needs a left hip replacement as well. She does have occasional inner thigh pain. She is having pain behind her knees bilaterally. Bending her knees make her pain worse. She denies any numbness or tingling in her feet. She did try physical therapy which made her pain worse. She is currently undergoing water aerobics which does not seem to be giving her any relief. She is unable to take anti-inflammatories due to renal sufficiency. The patient is currently on tramadol which is not relieving her pain. She does use ice and heat therapies. CC: Madina Contreras APRN [facility] History I have reviewed the patient's past medical history: Yes Medical History: Reports:: Hyperlipidemia, Hypertension Denies:: Cancer, Diabetes Mellitus Type 1, Diabetes Mellitus Type 2, Internal Pacemaker, MRSA, Seizures *Have you ever received a pneumonia vaccine?: Yes *Have you received a flu vaccine this season?: No Other Medical History: Reports: Hypothyroidism, Other. Denies: Blood Transfusion Reaction Laterality Cases: Right: Total Hip Replacement, Bilateral: Other Other Surgeries: Yes: , Other. No: Pacemaker Amputation: No Fractures: No - *Social History Smoking Status: Never smoker Alcohol Intake: never Substance Use Type: denies use *Occupational Status:: retired Housing: house *Travel in the last 8 weeks: None Family Hx:: Coronary Artery Disease, Heart Attack Review of Systems - Review of Systems Review of Systems General: No r
[2021-03-08 14:12] VITALS: BP 141/65; PULSE 79; RESP 20; TEMP 36.7; O2SAT 98; BMI 20.1
== END ==
PROVIDERS: PCP Internal Medicine; Visit Provider Clinical Nurse Specialist Family Health
DX: M54.2 Cervicalgia (principal); M54.12 Radiculopathy, cervical region; M54.9 Dorsalgia, unspecified; M54.16 Radiculopathy, lumbar region
CPT/HCPCS: 99202; G0463

== ENCOUNTER → 2021-03-11 07:21 | Outpatient (CLI) | payer SELFPAY ==
--- NOTE | 2021-03-11 07:21 | CT_ITS ---
PROCEDURE: CT HEART W CALCIUM SCORE CLINICAL HISTORY: atypical angina COMPARISON: No exams were available for comparison TECHNIQUE: Axial images obtained with sagittal and coronal reformats. All CT scans at the facility use one or more dose reduction, viz: automated exposure control, ma/kV adjustment per patient size (including targeted exams where dose is matched to indication, i.e. head), or iterative reconstruction technique. FINDINGS: Coronary artery calcium score is 522. Extensive calcific plaque burden with very high cardiovascular disease risk IMPRESSION: Extensive calcific plaque burden with very high cardiovascular disease risk Dictated by: Bryan Carreon MD 03/12/2021 12:52 Bryan Carreon MD in [place] 03/12/2021 12:52
== END ==
PROVIDERS: PCP Internal Medicine; Visit Provider Internal Medicine Cardiovascular Disease
DX: Z13.6 Encounter for screening for cardiovascular disorders (principal); R07.89 Other chest pain; I20.8 Other forms of angina pectoris; I10 Essential (primary) hypertension; E78.5 Hyperlipidemia, unspecified; Z82.49 Family history of ischemic heart disease and other diseases of the circulatory system
CPT/HCPCS: 75571

== ENCOUNTER → 2021-03-11 07:30 | Outpatient (CLI) | payer MEDICARE, OTHER, SELFPAY ==
--- NOTE | 2021-03-11 07:30 | NM_ITS ---
APPROVED REPORT Exam: Nuclear Stress Test Indication: chest pain..fatigue Patient Location: Outpatient Stress Tech: Edyta Ernandez SD Tech:HERMINIA Knott RT(R)(N) Ht: 5 ft 0 in Wt: 105 lbs Bra Size: 34 b HR: 91 bpm BP: 154/79 mmHg BSA: 1.42 m2 History: chest pain..fatigue Procedure: Patient received a 0.4 mg of intravenous Lexiscan, resting heart rate 91 bpm, resting blood pressure 154/79 mmHg, with Lexiscan maximum heart rate achived was 91 bpm which is Less than 85 % of the maximum predicted heart rate and blood pressure was 154/79 mmHg. With Lexiscan, patient denied any complaint of chest pain. patient was unable to lay on her belly for her prone images. Electrocardiogram Resting cardiogram shows sinus rhythm, with Lexiscan there is less than 1.[address] segment depression noted from the baseline EKG. The EKG portion of the Lexiscan is nondiagnostic. Cardiac Stress and Resting SPECT Images: Cardiac Stress and Resting SPECT images were obtained using technetium 99m Myoview 10.80 mCi stress and 31.1 mCi at rest. Gated SPECT for analysis of segmental wall motion and calculation of the ejection fraction also done, cardiac stress and resting SPECT images show mild reversible ischemia involving the anteroseptal area, computer derived ejection fraction is 54% with no regional wall motion abnormality, right ventricle is normal size and contractility. Conclusion: 1. The EKG portion of the Lexiscan is nondiagnostic. 2. Scintigraphic evidence of reversible ischemia involving the anteroseptal wall, computer derived ejection fraction 58% with no regional wall motion abnormality, right ventricle is normal size and contractility. 3. Abnormal Lexiscan Myoview study. Electronically signed by : Shorty Looney MD 03/11/2021 15:42:49
--- NOTE | 2021-03-11 09:31 | CA_ITS ---
APPROVED REPORT EXAM: Comprehensive 2D, Doppler, and color-flow Echocardiogram Industrial Organization Manager: Judith Potts, GRIFFIN, RVS Ht: 5 ft 0 in Wt: 109lbs BSA: 1.44 BP: 129/75 mmHg Indications: CP, Cough, numbness of Fibromyalgia 2D Dimensions Left Atrium 2.51 cm LA Volume 35.50 mL LVOT 1.68 cm (M/F) 1.5-2.5 LA Volume Index 24.487644 mL/m2 (M/F) 16-34 M-Mode Dimensions RVDd 2.55 cm (0.9-2.6) LA Diam 3.15 cm (1.9-4.0) LVDd 3.80 cm (3.5-5.7) Ao Diam 3.09 cm (2.0-3.7) LVDs 2.32 cm (3.5-5.7) IVSd 0.99 cm (0.6-1.1) PWd 1.02 cm (0.6-1.1) EF (Teich) 70.20% EPSs 0.50 cm FS 38.90% EDV (Teich) 62.00 mL TAPSE 2.45 (<1.7) ESV (Teich) 18.50 mL LV Diastology E Decel Time 157.00 (160-240 msec) E/A Ratio 0.88 MED E' 8.60 (< 7 cm/sec) MED A' 9.50 cm/s E'/MED E' Ratio 10.94 (>14) LAT E' 9.70 (<10 cm/sec) LAT A' 15.60 cm/s E/LAT E' Ratio 9.70 (>14) Aortic Valve LVOT Max 130.00 (70-110 cm/s) LVOT VTI 24.54 cm AoV Peak Shahram. 155.00 (50-130 cm/s) AO Peak GR. 9.60 mmHg AO Mean GR. 4.70 (<5 mmHg) AO VTI 29.18 (18-25 cm) CHRISTA (VTI) 1.86 (2.5-4.5 cm2) Mitral Valve MV A Velocity 107.00 (40-130 cm/s) E/A Ratio 0.88 MV Decel. Time 157.00 (160-240 ms) Pulmonary Valve PV Peak Velocity 90.00 (50-150 cm/s) Tricuspid Valve TR P. Velocity 223.00 cm/s RAP Estimate 10.00 mmHg RVSP 29.80 mmHg Left Ventricle Left atrium is normal size, left ventricle is normal size, there is no concentric left ventricular hypertrophy, visually estimated ejection fraction 55% with no regional wall motion abnormality, diastolic parameters are inconclusive. Right Ventricle Right atrium and right ventricle are normal size and contractility. Aortic Valve Aortic valve is minimally thickened and fibrosed, there is no aortic stenosis or aortic insufficiency. Mitral Valve Mitral valve is grossly normal, there is trace mitral regurgitation. Tricuspid Valve Tricuspid valve grossly normal, there is trace tricuspid regurgitation, tricuspid regurgitation jet velocity is inadequate for calculation of the right ventricular systolic pressure. Pulmonic Valve Pulmonic valve is poorly visualized. Great Vessels Aortic root is normal size. Inferior vena cava is normal size with normal inspiratory collapse. Pericardium No significant pericardial effusion noted. Conclusion 1. Normal left ventricular size, preserved left ventricular systolic function, visually estimated ejection fraction 55% with no regional wall motion abnormality, diastolic parameters are inconclusive. 2. Trace mitral and tricuspid regurgitation. 3. No significant pericardial effusion noted. 4. Inferior vena cava is normal size with normal inspiratory collapse. Electronically signed by : Shorty Looney MD 03/12/2021 13:33:09
--- NOTE | 2021-03-11 10:46 | CA_ITS ---
APPROVED REPORT Exam: Pharmacologic Technologist: Edyta Ernandez, Ht: 5 ft 0 in Wt: 105 lbs BSA: 1.42 m2 HR: 77 bpm BP: 154/79 mmHg Medical History Medications: Lorazepam,,,,, Levothyroxine,,,,, Metoprolol,,,,, Atorvastatin,,,,, Lansoprazole,,,,, GlUCOsamine,,,,, Micardis,,,,, Potassium,,,,, Stress Test Details Test: LEXISCAN HR Resting HR: 91 bpm Max Heart Rate (APMHR): 150.601676 bpm Max HR Achieved: 120 bpm Target HR (85% APMHR): 127.904220 bpm % of APMHR: 80.00 Recovery HR: 102 bpm BP Resting BP: 154/79 mmHg Max BP: 154/79 mmHg Recovery BP: 151.0/71.0 mmHg ECG Resting ECG: Sinus arrhythmia, otherwise normal Clinical Exercise duration: 04:00 min Highest Stage Achieved: Exercise capacity: 1.0 METs Stress ECG Conclusion Symptoms: Gnawing chest discomfort, brief SOA, nausea, mild MACIAS. Arrhythmias/Ectopy: None. ST-T Changes: No significant changes. Conclusion: Unremarkable Lexiscan stress. Myoview images reported separately. Electronically signed by : Shorty Looney MD 03/11/2021 13:29:11
== END ==
PROVIDERS: PCP Internal Medicine; Visit Provider Internal Medicine Cardiovascular Disease
DX: E78.5 Hyperlipidemia, unspecified (principal); I10 Essential (primary) hypertension; I20.8 Other forms of angina pectoris; R07.89 Other chest pain; Z82.49 Family history of ischemic heart disease and other diseases of the circulatory system
CPT/HCPCS: 78452; 93017; 93306; A9502; J2785

== ENCOUNTER → 2021-03-20 09:37 | Outpatient (CLI) | payer MEDICARE, OTHER, SELFPAY ==
--- NOTE | 2021-03-20 09:45 | MR_ITS ---
PROCEDURE INFORMATION: Exam: MR Cervical Spine Without Contrast Exam date and time: 03/20/2021 9:45 AM Age: 71 years old Clinical indication: Cervicalgia and neck pain; Patient HX: HX fibromyalgia and arthritis without known injury or trauma TECHNIQUE: Imaging protocol: Multiplanar magnetic resonance images of the cervical spine without contrast. COMPARISON: RF ESO ESOPHAGUS (BA. SWALLOW) 08/27/2015 9:35 AM FINDINGS: Alignment grossly normal. Signal intensity within the bone marrow normal. Spinal cord normal. Visualized portions of the brain in the posterior fossa is also normal. Degenerative disc disease most pronounced C3-C4, C4-C5, C5-C6 and C6-C7 No marrow edema C2-C3: Central canal and neural foramina are widely patent. C3-C4: Disc and or osteophytic complex anteriorly effaces the anterior aspect of the thecal sac. Disc, uncovertebral hypertrophic changes and facet arthropathy narrow the neural foramina severely so bilaterally. Flattening of the cord with mild central canal narrowing. C4-C5: Disc and or osteophytic complex anteriorly mildly effaces the anterior aspect of the thecal sac. Central disc protrusion. Disc, uncovertebral hypertrophic changes and facet arthropathy narrow the neural foramina severely so on the right and mildly so on the left C5-C6: Disc and or osteophytic complex anteriorly mildly effaces the anterior aspect of the thecal sac. Right neural foramina normal. Mild narrowing of the left neural foramina C6-C7: Disc and or osteophytic complex anteriorly mildly effaces the anterior aspect of the thecal sac. Central canal is normal. Mild narrowing of the neural foramina bilaterally C7-T1: Central canal is normal. Mild narrowing of the neural foramina left greater than right IMPRESSION: Rather severe degenerative disc disease including central canal narrowing C3-C4. Multilevel neural foraminal narrowing. See above.
--- NOTE | 2021-03-20 09:45 | MR_ITS ---
PROCEDURE INFORMATION: Exam: MR Lumbar Spine Without Contrast Exam date and time: 03/20/2021 9:45 AM Age: 71 years old Clinical indication: [place] and low back pain; Prior surgery; Surgery date: 6+ months; Surgery type: PT states she had surgery on her lumbar spine in the 1980s not sure what they did. ; Patient HX: HX fibromyalgia and arthritis without known injury or trauma TECHNIQUE: Imaging protocol: Multiplanar magnetic resonance images of the lumbar spine without intravenous contrast. COMPARISON: CR XR LUMBAR SPINE MIN 4V 05/25/2020 10:27 AM FINDINGS: alignment is grossly normal. signal intensity within the bone marrow is normal. conus terminates at the mid aspect of L1. Soft tissues are unremarkable. Diffuse degenerative disc disease throughout the lumbar spine Severe central canal narrowing L3-L4 and L4-L5 Severe neural foraminal narrowing L3-L4 and bilaterally, L4-L5 bilaterally and L5-S1 bilaterally No marrow edema T12-L1: Central canal and neural foramina are widely patent. L1-L2: Central canal and neural foramina are widely patent. L2-L3: Mild narrowing of the central canal secondary to facet hypertrophic changes, ligamentum flavum hypertrophic changes, and a broad-based annular bulge. L3-L4: Severe narrowing of the central canal secondary to facet hypertrophic changes, ligamentum flavum hypertrophic changes, and a broad-based annular bulge. L4-L5: Severe narrowing of the central canal secondary to facet hypertrophic changes, ligamentum flavum hypertrophic changes, and a broad-based annular bulge. L5-S1: Broad-based annular disc bulge effaces the anterior aspect of the thecal sac mildly so. Disc lateralizes to the right greater than left IMPRESSION: Degenerative disc disease most pronounced L3-L4 and L4-L5. Severe central canal narrowing.
== END ==
PROVIDERS: PCP Internal Medicine; Visit Provider Clinical Nurse Specialist Family Health
DX: M54.2 Cervicalgia (principal); M54.50 Low back pain, unspecified; M54.12 Radiculopathy, cervical region; M54.16 Radiculopathy, lumbar region
CPT/HCPCS: 72141; 72148; 76376

== ENCOUNTER → 2021-03-29 09:29 | Outpatient (POV) | payer MEDICARE, OTHER, SELFPAY ==
[2021-03-29 09:55] VITALS: BP 135/81; PULSE 114; RESP 18; O2SAT 99; BMI 20.5
--- NOTE | 2021-03-29 12:44 | HMH.PAINSOAP ---
[facility] Pain Management SOAP Note Subjective:: Patient is a 71-year-old white female who presents today for MRI review. The patient is having pain in her neck and low back area with radicular symptoms into her left arm, left wrist and hand and bilateral lower extremities. The patient has difficulty with standing and walking due to pain in bilateral lower extremities along with heaviness and weakness. She is also having significant pain in her left arm with radiation into her left wrist and left fourth finger. The pain is worse to her left arm at this time compared to low back area and bilateral legs. She has tried physical therapy for more than 6 weeks and also water aerobics. She got minimal relief. She initially thought she was getting relief with physical therapy but says the pain does immediately return. She is unable to take anti-inflammatories due to renal insufficiency. She is having swelling into her left wrist and top of her left hand as well. The patient says that her right and left biceps caused significant pain, worse to the left. She has significant heaviness and weakness in her lower extremities. Leaning forward does give her relief. She has tried ice and heat therapies as well. She has been worked up and has been managed for fibromyalgia and has been told that most of her pain is due to arthritic symptoms and fibromyalgia and polymyalgia. Patient says this is the first time she has been worked up for cervical or lumbar spine pain. Review of Systems General: No recent weight changes, no fever, no sleep disturbances Respiratory: No cough, no shortness of air, no recurring pulmonary infections Cardiovascular/peripheral vascular: No chest pain, no palpitations, no edema, no shortness of breath Gastrointestinal: No new onset incontinence, normal bowel movements reported Genitourinary: No new onset incontinence Musculoskeletal: Neck pain with radiation into bilateral upper extremities, worse to left arm with numbness and tingling into left wrist and left fourth finger, swelling to left wrist and left anterior hand, low back pain with radiation into bilateral lower extremities with heaviness and weakness bilateral lower extremities relieved by leaning forward Psychiatric: [Normal mood/affect] Neurological: Weakness bilateral lower extremities and left upper extremity Objective:: Physical exam General: Alert and oriented x3, no acute distress, pleasant and cooperative Lungs: Respirations even and unlabored, symmetrical chest expansion Eyes: PERRL Musculoskeletal: Flexion and extension of cervical and lumbar [spine] somewhat guarded secondary to pain, [antalgic gait noted] Neurological: Speech clear, no gross sensory deficit Assessment:: Degenerative disc disease cervical and lumbar spine with cervical and lumbar radicular symptoms, Plan:: Patient I did review her MRI today. She does have significant stenosis noted to her lumbar spine with severe narrowing at L3-L4 L4-L5 L5-S1 area per her report. Patient also has Flattening of the cord with mild central canal narrowing to her cervical spine per MRI report. Patient's pain is worse to her neck and arms at this time. Patient says that her pain is significant to the left arm left wrist and left fourth finger. She is having numbness and tingling as well to these areas with swelling the anterior aspect of her hand. Given the patient's symptoms she would like to proceed with treatment to her cervical spine initially. We will schedule the patient for a cervical epidural steroid injection at C5-C6 area. The patient is not on any anticoagulation therapy and is not diabetic. We will also order the patient compounding cream to apply topically to her hand to see if this relieves any of her radicular symptoms. The patient and I did discuss also possible neurosurgical evaluation. We will schedule her for neurosurgery evaluation at [facility]. In the meantime we
== END ==
PROVIDERS: Visit Provider Clinical Nurse Specialist Family Health
DX: M50.10 Cervical disc disorder with radiculopathy, unspecified cervical region (principal); M54.16 Radiculopathy, lumbar region
CPT/HCPCS: 99212; G0463

== ENCOUNTER → 2021-04-19 08:18 | Outpatient (CLI) | payer MEDICARE, OTHER, SELFPAY ==
[2021-04-19 09:02] LABS: Basophils # 0.2 K/mm3 (0-0.2); Basophils % 1.4 % (0.1-2.0); Eosinophils # 0.1 K/mm3 (0.0-0.4); Eosinophils % 0.7 % (0.1-12.0); Hematocrit 31.4 % (37.0-47.0); Hemoglobin 10.1 g/dL (12.2-16.2); Lymphocytes % 29.7 % (10-50); Mean Corpuscular HGB Conc 32.2 g/dL (31.8-35.4); Mean Corpuscular Hemoglobin 28.7 pg (27.0-31.2); Mean Platelet Volume 7.1 fl (7.4-10.4); Monocytes # 0.7 K/mm3 (0.1-1.0); Monocytes % 5.5 % (1.7-9.3); Neutrophils # 8.3 K/mm3 (1.8-7.8); Neutrophils % 62.7 % (37.0-80.0); Platelet Count 591 K/mm3 (142-424); Red Blood Count 3.53 M/mm3 (4.20-5.40); Red Cell Distribution Width 16.8 % (11.5-17.5); White Blood Count 13.3 K/mm3 (4.8-10.8)
[2021-04-19 09:36] LABS: Chloride 91 mmol/L (98-107); Sodium 133 mmol/L (136-145)
[2021-04-19 09:39] LABS: Blood Urea Nitrogen 20 mg/dl (7-17); Estimated Glomerular Filt Rate 49 ml/min (>60); GFR (African American) 59 ML/MIN (>60)
[2021-04-19 09:40] LABS: Calcium 10.3 mg/dl (8.4-10.2); Carbon Dioxide 36 mmol/L (22.0-30.0); Glucose 90 mg/dl (74-100)
== END ==
PROVIDERS: Visit Provider Urology
DX: E78.2 Mixed hyperlipidemia (principal); I10 Essential (primary) hypertension; I20.8 Other forms of angina pectoris; R07.89 Other chest pain; R93.1 Abnormal findings on diagnostic imaging of heart and coronary circulation; R94.30 Abnormal result of cardiovascular function study, unspecified; Z82.49 Family history of ischemic heart disease and other diseases of the circulatory system; Z01.812 Encounter for preprocedural laboratory examination; Z20.822 Contact with and (suspected) exposure to COVID-19
CPT/HCPCS: 36415; 80048; 85025; C9803; U0003; U0005

== ENCOUNTER 2021-04-21 07:30 | Day surgery (SDC) | payer MEDICARE, OTHER, SELFPAY ==
[2021-04-21] VITALS (14 sets, daily range): BP systolic 125–167; BP diastolic 71–97; PULSE 67–95; RESP 17–20; TEMP 37.2; O2SAT 94–100; BMI 20.1
--- NOTE | 2021-04-21 | IR_ITS ---
APPROVED REPORT Patient Location: Outpatient Chief Operator Hydroformer: HERMINIA Betts RT (R) PROCEDURES Left heart catheterization Left ventriculogram Selective coronary angiogram Drug-eluting stent deployment to the proximal mid LAD INDICATION Coronary artery disease, High risk abnormal Myoview, Angina pectoris, Informed consent was obtained prior to the procedure. COMPLICATIONS None Estimated Blood Loss: Less than 10 mls TECHNIQUE One percent lidocaine used to anesthetize the right anterior aspect of the wrist. The right radial artery was accessed via the Seldinger technique. A 6 Bulgarian sheath was placed in the right radial artery. 2.5 mg of verapamil, 800 mcg of nitroglycerin, 1mg Lidocaine and 5000 U Heparin were given through the arterial sheath. The Electric Cloudpa catheter was also used to perform left heart catheterization, left ventriculogram and selective coronary angiogram. At the end of the diagnostic procedure therapeutic heparin was administered giving a therapeutic ACT. The guide catheter was kept into the left main artery and a Choice PT extra-support wire was placed distally. Primary stenting could not be performed therefore a third 2.5 mm x 12 mm balloon was deployed at 18 rod reducing the 90% stenosis thereby allowing stenting to occur. A 2.75 x 26 mm resolute Marquise stent was deployed at 18 rod reducing the critical stenosis to 0%. A 3 mm x 12 mm noncompliant balloon was deployed at 1820 and 24 rod to post dilate the proximal mid and distal portion of the stent. After achieving excellent angiographic results with SHARLA-3 flow before and after the procedure the apparatus was removed the sheath was removed good hemostasis was achieved using TR banding patient was transferred to the postop holding area in stable condition ANGIOGRAPHIC RESULTS The left main artery Normal The left anterior descending artery Has proximal 20% stenosis followed by a focal 90% stenosis immediately distal to a large first diagonal artery The circumflex artery Nondominant with mild luminal irregularities nothing greater than 10% The right coronary artery Large dominant with a mid vessel eccentric 30% stenosis The FERNANDES ventriculogram reveals Hyperdynamic at 65 to 70% The left ventricular end-diastolic pressure 20 mmHg IMPRESSION Severe to critical coronary disease as described above Successful stenting of the proximal to mid LAD severe to critical disease reduced to 0% with 1 drug-eluting stent Hyperdynamic ventricle Elevated LVEDP PLAN 1. Dual antiplatelet therapy 2. Cardiac rehabilitation 3. LDL less than 55 4. Avoidance of tobacco products 5. Risk factor modification 6. Treatment of diastolic dysfunction Electronically signed by : Mark Gilbert MD 04/21/2021 11:03:44
--- NOTE | 2021-04-21 14:05 | HMH.PHACLD ---
Kaylin Walton has received discharge medication counseling on the following medications: PATIENT IS CURRENTLY TAKING ATORVASTATIN 20 MG DAILY, METOPROLOL SUCCINATE 25 MG DAILY, MICARDIS 20 MG DAILY, BRINLINTA 90 MG BID, AND ASPIRIN 81 MG DAILY.
[2021-04-21 16:38] LABS: CATHL Activated Clotting Time 261 SEC (74-125)
== END 2021-04-21 14:56 | disposition home or self-care (01) ==
LOC: CATHLAB 07:32
PROVIDERS: PCP Internal Medicine; Visit Provider Internal Medicine
DX: R07.9 Chest pain, unspecified (principal); I25.118 Atherosclerotic heart disease of native coronary artery with other forms of angina pectoris; I10 Essential (primary) hypertension; Z82.49 Family history of ischemic heart disease and other diseases of the circulatory system
CPT/HCPCS: 85347; 92928; 93458; 99152; 99153; C1725; C1769; C1876; C9600; J1644; Q9967

== ENCOUNTER → 2021-04-26 11:00 | Outpatient (CLI) | payer MEDICARE, OTHER, SELFPAY ==
[2021-04-26 13:29] LABS: Iron 28 ug/dL (37-170)
[2021-04-26 13:41] LABS: Total Iron Binding Capacity 260 ug/dL (265-497)
[2021-04-27 12:53] LABS: Basophils # 0.1 K/mm3 (0-0.2); Basophils % 1.2 % (0.1-2.0); Eosinophils # 0.2 K/mm3 (0.0-0.4); Eosinophils % 1.7 % (0.1-12.0); Hematocrit 30.5 % (37.0-47.0); Hemoglobin 9.3 g/dL (12.2-16.2); Lymphocytes # 1.1 K/mm3 (0.7-4.5); Lymphocytes % 13.2 % (10-50); Mean Corpuscular HGB Conc 30.4 g/dL (31.8-35.4); Mean Corpuscular Hemoglobin 28.8 pg (27.0-31.2); Mean Corpuscular Volume 94.7 fl (81-99); Monocytes # 0.5 K/mm3 (0.1-1.0); Monocytes % 6.2 % (1.7-9.3); Neutrophils # 6.5 K/mm3 (1.8-7.8); Neutrophils % 77.7 % (37.0-80.0); Platelet Count 335 K/mm3 (142-424); Red Blood Count 3.22 M/mm3 (4.20-5.40); Red Cell Distribution Width 17.1 % (11.5-17.5); White Blood Count 8.4 K/mm3 (4.8-10.8)
== END ==
PROVIDERS: Visit Provider Internal Medicine
DX: D50.9 Iron deficiency anemia, unspecified (principal)
CPT/HCPCS: 36415; 83540; 83550; 85025

== ENCOUNTER → 2021-05-10 14:02 | Outpatient (CLI) | payer MEDICARE, OTHER, SELFPAY ==
--- NOTE | 2021-05-10 14:06 | MR_ITS ---
PROCEDURE INFORMATION: Exam: MR Cervical Spine Without Contrast Exam date and time: 05/10/2021 2:06 PM Age: 71 years old Clinical indication: Neck pain; Additional info: Arm numbness. Neck pain x2-3months. No injury or trauma. Prior MR 03-20-21 TECHNIQUE: Imaging protocol: Multiplanar magnetic resonance images of the cervical spine without contrast. COMPARISON: MR CERVICAL SPINE WO CON 03/20/2021 9:57 AM FINDINGS: Mild retrolisthesis of C3 on C4. Vertebral body heights are preserved. Multilevel disc desiccation and disc space narrowing. Negative for discitis/osteomyelitis. No pathologic cord signal or cord expansion. No epidural fluid collection. C2-C3: Mild disc osteophyte complex without significant central or foraminal stenosis. C3-C4: Moderate to large disc osteophyte complex with bilateral uncinate spurring and posterior laxity of ligamentum flavum. There is severe central canal stenosis and moderate to severe bilateral foraminal stenosis. C4-C5: Moderate disc osteophyte complex with uncinate spurring and facet joint arthropathy more prominent on the right. Moderate central canal stenosis, moderate to severe right foraminal stenosis and mild left foraminal stenosis. C5-C6: Xalc-bc-pvioginr disc osteophyte complex with uncinate spurring more prominent on the right. There is mild central canal stenosis and mild right foraminal stenosis. C6-C7: Rdbf-vr-[id number] disc osteophyte complex with uncinate spurring more prominent on the left. There is mild central canal stenosis and mild bilateral foraminal stenosis. C7-T1: Mild disc osteophyte complex without significant central canal stenosis. There is mild bilateral foraminal stenosis. IMPRESSION: Degenerative findings as above greatest at C3-C4 where there is severe central canal stenosis with moderate to severe bilateral foraminal stenosis. Neurosurgical consultation may be considered.
== END ==
PROVIDERS: PCP Internal Medicine; Visit Provider Clinical Nurse Specialist Family Health
DX: M54.2 Cervicalgia (principal); R20.0 Anesthesia of skin
CPT/HCPCS: 72141; 76376

== ENCOUNTER → 2021-05-19 12:52 | Outpatient (CLI) | payer MEDICARE, OTHER, SELFPAY ==
--- NOTE | 2021-05-19 | US_ITS ---
APPROVED REPORT Laterality: Bilateral Pantograph Machine Operator: Elly Dow MANAGER RELOCATION Indications CAD Symptoms Claudication : Risk Factors Hypertension: Hyperlipidemia CAD Pressures Radial 165.0mmHg Ulnar 156.0mmHg Left Radial 158.0mmHg Ulnar 170.0mmHg Pressures/Indices Right Left INDEX INDEX 1.0 1.0 Findings R WBI 1.0 L WBI 1.0 R FBI 1.1 L FBI 1.1 Normal waveforms Normal pulses Conclusion R WBI 1.0 L WBI 1.0 R FBI 1.1 L FBI 1.1 Normal waveforms Normal pulses No evidence of arterial disease Electronically signed by : Bryan Carreon MD 05/20/2021 14:58:59
== END ==
PROVIDERS: PCP Internal Medicine; Visit Provider Internal Medicine
DX: R09.89 Other specified symptoms and signs involving the circulatory and respiratory systems (principal)
CPT/HCPCS: 93923

== ENCOUNTER → 2021-07-07 08:23 | Outpatient (CLI) | payer MEDICARE, OTHER, SELFPAY ==
[2021-07-07 08:50] LABS: Basophils # 0.1 K/mm3 (0-0.2); Basophils % 1.2 % (0.1-2.0); Eosinophils # 0.5 K/mm3 (0.0-0.4); Eosinophils % 7.1 % (0.1-12.0); Hematocrit 32.1 % (37.0-47.0); Hemoglobin 10.3 g/dL (12.2-16.2); Lymphocytes # 1.3 K/mm3 (0.7-4.5); Lymphocytes % 17.7 % (10-50); Mean Corpuscular HGB Conc 32.2 g/dL (31.8-35.4); Mean Corpuscular Hemoglobin 29.3 pg (27.0-31.2); Mean Platelet Volume 6.4 fl (7.4-10.4); Monocytes # 0.5 K/mm3 (0.1-1.0); Monocytes % 6.1 % (1.7-9.3); Neutrophils # 5.2 K/mm3 (1.8-7.8); Neutrophils % 67.9 % (37.0-80.0); Platelet Count 244 K/mm3 (142-424); Red Blood Count 3.53 M/mm3 (4.20-5.40); Red Cell Distribution Width 16.4 % (11.5-17.5); White Blood Count 7.6 K/mm3 (4.8-10.8)
[2021-07-07 10:07] LABS: Iron 40 ug/dL (37-170)
[2021-07-07 10:17] LABS: Total Iron Binding Capacity 240 ug/dL (265-497)
[2021-07-07 10:44] LABS: Ferritin 241 ng/ml (11.1-264)
== END ==
PROVIDERS: PCP Internal Medicine; Visit Provider Internal Medicine Medical Oncology
DX: D50.9 Iron deficiency anemia, unspecified (principal)
CPT/HCPCS: 36415; 82728; 83540; 83550; 85025

== ENCOUNTER 2021-08-26 15:38 | Emergency (ER) | payer MEDICARE, OTHER, SELFPAY ==
[2021-08-26 16:10] VITALS: BP 148/75; PULSE 66; RESP 19; TEMP 37; O2SAT 98; BMI 19.9
[2021-08-26 16:18] LABS: Color,Urine Yellow (Yellow)
[2021-08-26 16:19] LABS: Apearance,Urine Clear (Clear); Bilirubin,Urine Negative (Negative); Blood, Urine 1+ (Negative); Glucose,Urine (UA) Negative (Negative); Ketones,Urine Negative (Negative); Protein,Urine Negative (Negative); Specific Gravity, Urine 1.015 (1.005-1.030); UTC Leukocyte Esterase,Urine Negative (Negative); UTC Nitrate,Urine Negative (Negative); Urobilinogen,Urine 0.2 EU/dl (0.2)
--- NOTE | 2021-08-26 16:19 | HMH.EDUTC ---
[facility] [place] Disposition Clinical Impression: UTI (urinary tract infection) Disposition: Home, Self-Care Condition on Discharge: Good Instructions: DI for Urinary Tract Infection (UTI), Cephalexin Additional Instructions: *Increase fluids. Water not Soda or Tea *Start antibiotic immediately and be sure to take as ordered for the FULL length of time although you should start to see improvement over the next 48 hours *Be SURE to follow up anytime for new or worsening symptoms with your family doctor. AND in 48 hours for urine culture results with your family doctor, if you do not have a doctor then you may call back to the [facility] for urine culture results and further treatment. We do recommend that you choose and establish care with a Primary Care Physician. AND follow up with them in 10-14 days to repeat UA to ensure infection is resolved and blood no longer present *Be sure to let your PCP know that we sent urine cultures from the [facility] so they can follow up to ensure that you area the on the correct antibiotic Call your doctor office and make appointment for 48 hours (2 days from today) to follow up and get the results of your urine culture and further treatment Prescriptions: cephALEXin [cephALEXin 500mg capsule*] 500 mg PO BID 5 Days #10 cap Transmission Status: Received by [facility] Referrals: Carlton Wyatt [Primary Care Provider] - As needed Time of Disposition: 16:32 Medical Decision Making - Abe Inquiry Pt receiving controlled substance: No Abe was queried for this patient: No Vital Signs: 08/26/21 16:10 08/26/21 16:34 Temperature 98.6 F 98.6 F Temperature Source Oral Pulse Rate 66 Pulse Rate [Right Brachial] 66 Respiratory Rate 19 19 Blood Pressure 148/75 H Blood Pressure [Right Arm] 148/75 H Blood Pressure Mean [Right Arm] 99 Blood Pressure Source [Right Arm] Automatic Cuff Blood Pressure Position [Right Arm] Sitting 02 Sat by Pulse Oximetry 98 - Lab Data Lab results reviewed: Yes: I reviewed the patient's lab results. Lab Results 08/26/21 16:05: Urine Color Yellow, Urine Appearance Clear, Urine pH 7.0, Ur Specific [address] 1.015, Urine Protein Negative, Urine Glucose (UA) Negative, Urine Ketones Negative, Urine Blood 1+, Urine Nitrate Negative, Urine Bilirubin Negative, Urine Urobilinogen 0.2, Ur Leukocyte Esterase Negative Orders (Tests/Meds): ORDERS Category Date Time Status Urine Culture Stat Micro 08/26/21 16:17 Received Medical Decision Narrative: Discussed with patient and recommended transfer to the ED for further work up and evaluation and patient declined States that she is not having any pain in abdomen at this time just feels like she has to urinate more frequently than usual and will follow up with her PCP if no improvement or any worsening of symptoms she will go straight to ER medication discussed with pharmacy [facility] [place] HPI - General Stated complaint: stomache ache Time Seen by Provider: 08/26/21 16:19 Description of Symptoms (Recalled from Triage Doc. by RN): PT STATES SHE HAS BEEN HAVING FREQUENT URINATION AND LOWER ABD PAIN X'S 1 WEEK. HEENT Symptoms (Recalled from RN notes): No Resp Symptoms (Recalled from RN notes): No Skin Symptoms (Recalled from RN notes): No MS Symptoms (Recalled from RN notes): No Functional Status (Recalled from RN notes): WNL - History of Present Illness Provider Complaint: Patient state that she has been having the feeling of urgency and frequency for about a week and having a little pressure like feeling in her lower abdomen like she has to go States she seen OBGYN on Monday and had OB exam and they have been treating her for a rash down there States that today she was still urinating frequently and having the pressure so she came in wanting to get checked for UTI - Related Data Home Medications Medication Instructions Recorded Confirmed Telmisartan [Micardis] 20 mg PO DAILY 09/22/17 08/02/21 levothyroxine 75 mcg tablet 8
[2021-08-26 16:34] VITALS: BP 148/75; PULSE 66; RESP 19; TEMP 37; O2SAT 98
== END 2021-08-26 16:35 | disposition home or self-care (01) ==
PROVIDERS: Emergency Provider Nurse Practitioner; PCP Internal Medicine
DX: N30.00 Acute cystitis without hematuria (principal); E78.5 Hyperlipidemia, unspecified; E03.9 Hypothyroidism, unspecified
CPT/HCPCS: 81003; 87086; 87088; 87186; 99212; G0463

== ENCOUNTER → 2021-08-31 11:39 | Outpatient (CLI) | payer MEDICARE, OTHER, SELFPAY ==
[2021-08-31 12:42] LABS: Basophils # 0.1 K/mm3 (0-0.2); Basophils % 0.8 % (0.1-2.0); Eosinophils # 0.1 K/mm3 (0.0-0.4); Eosinophils % 0.9 % (0.1-12.0); Hematocrit 33.1 % (37.0-47.0); Hemoglobin 10.9 g/dL (12.2-16.2); Lymphocytes % 11.3 % (10-50); Mean Corpuscular HGB Conc 32.8 g/dL (31.8-35.4); Mean Corpuscular Hemoglobin 29.2 pg (27.0-31.2); Mean Corpuscular Volume 89.2 fl (81-99); Mean Platelet Volume 7.5 fl (7.4-10.4); Monocytes # 0.6 K/mm3 (0.1-1.0); Neutrophils # 7.3 K/mm3 (1.8-7.8); Neutrophils % 80.1 % (37.0-80.0); Platelet Count 451 K/mm3 (142-424); Red Blood Count 3.72 M/mm3 (4.20-5.40); Red Cell Distribution Width 16.3 % (11.5-17.5); White Blood Count 9.2 K/mm3 (4.8-10.8)
[2021-08-31 12:46] LABS: Chloride 89 mmol/L (98-107); Potassium 4.2 mmoL/L (3.5-5.1); Sodium 126 mmol/L (136-145)
[2021-08-31 12:49] LABS: Anion Gap 12.2 mEq/L (5-15); Blood Urea Nitrogen 21 mg/dl (7-17); Calcium 9.3 mg/dl (8.4-10.2); Carbon Dioxide 29 mmol/L (22.0-30.0); Estimated Glomerular Filt Rate 49 ml/min (>60); GFR (African American) 59 ML/MIN (>60); Glucose 87 mg/dl (74-100); Iron 50 ug/dL (37-170)
[2021-08-31 12:58] LABS: Total Iron Binding Capacity 268 ug/dL (265-497)
[2021-08-31 13:25] LABS: Ferritin 212 ng/ml (11.1-264)
== END ==
PROVIDERS: Visit Provider Internal Medicine Medical Oncology
DX: D64.9 Anemia, unspecified (principal)
CPT/HCPCS: 36415; 80048; 82728; 83540; 83550; 85025

== ENCOUNTER → 2021-09-14 08:17 | Outpatient (CLI) | payer MEDICARE, OTHER, SELFPAY ==
[2021-09-14 09:13] LABS: Basophils # 0.1 K/mm3 (0-0.2); Basophils % 1.4 % (0.1-2.0); Eosinophils # 0.2 K/mm3 (0.0-0.4); Eosinophils % 2.2 % (0.1-12.0); Hematocrit 32.2 % (37.0-47.0); Hemoglobin 10.7 g/dL (12.2-16.2); Lymphocytes # 1.2 K/mm3 (0.7-4.5); Lymphocytes % 17.3 % (10-50); Mean Corpuscular HGB Conc 33.3 g/dL (31.8-35.4); Mean Corpuscular Hemoglobin 29.5 pg (27.0-31.2); Mean Corpuscular Volume 88.6 fl (81-99); Monocytes # 0.4 K/mm3 (0.1-1.0); Monocytes % 6.2 % (1.7-9.3); Neutrophils # 4.9 K/mm3 (1.8-7.8); Neutrophils % 72.9 % (37.0-80.0); Platelet Count 403 K/mm3 (142-424); Red Blood Count 3.63 M/mm3 (4.20-5.40); Red Cell Distribution Width 16.2 % (11.5-17.5); White Blood Count 6.7 K/mm3 (4.8-10.8)
[2021-09-14 09:49] LABS: Erythrocyte Sedimentation Rate 106 mm/hr (0-30)
[2021-09-14 09:52] LABS: Alanine Aminotransferase 13 U/L (12-78); Albumin/Globulin Ratio 1.4 (1.1-1.8); Alkaline Phosphatase 57 U/L (38-126); Anion Gap 11.2 mEq/L (5-15); Aspartate Amino Transferase 25 U/L (14-36); Bilirubin,Total 0.4 mg/dl (0.2-1.3); Blood Urea Nitrogen 22 mg/dl (7-17); Calcium 9.3 mg/dl (8.4-10.2); Carbon Dioxide 29 mmol/L (22.0-30.0); Chloride 96 mmol/L (98-107); Creatine Kinase 112 U/L (30-135); Estimated Glomerular Filt Rate 62 ml/min (>60); GFR (African American) 75 ML/MIN (>60); Globulin 2.8 g/dL (1.3-3.2); Glucose 90 mg/dl (74-100); Potassium 4.2 mmoL/L (3.5-5.1); Sodium 132 mmol/L (136-145); Total Protein,Serum 6.8 g/dl (6.3-8.2)
[2021-09-15 07:22] LABS: RA Latex Turbid. <10.0 IU/mL (<14.0)
[2021-09-15 16:18] LABS: Antinuclear Antibodies, IFA Negative (.)
== END ==
PROVIDERS: Visit Provider Internal Medicine
DX: M54.2 Cervicalgia (principal); M79.7 Fibromyalgia; I10 Essential (primary) hypertension; E03.9 Hypothyroidism, unspecified; E78.5 Hyperlipidemia, unspecified; K21.9 Gastro-esophageal reflux disease without esophagitis; N18.9 Chronic kidney disease, unspecified; M35.3 Polymyalgia rheumatica
CPT/HCPCS: 36415; 80053; 82550; 84443; 85025; 85651; 86038; 86431

== ENCOUNTER → 2021-09-28 09:42 | Outpatient (POV) | payer MEDICARE, OTHER, SELFPAY | PROVIDERS: Visit Provider Dermatology | DX: Z00.00 Encounter for general adult medical examination without abnormal findings (principal) ==

== ENCOUNTER → 2021-10-04 15:00 | Outpatient (CLI) | payer MEDICARE, OTHER, SELFPAY ==
--- NOTE | 2021-10-04 15:43 | XR_ITS ---
FINAL REPORT CLINICAL HISTORY: ARTHRITIS FINDINGS: RIGHT SHOULDER Three views demonstrate no acute fracture or dislocation. There is mild AC joint degenerative change. The visualized bony structures are well aligned. No soft tissue abnormality is seen. IMPRESSION: Mild AC joint degenerative change. Reviewed, Interpreted and Dictated by Carson Armstrong III, MD Transcribed by Gunner Matthews Authenticated by Carson Armstrong III, MD on 10/04/2021 04:49:01 PM [facility]
[2021-10-04 16:00] LABS: Basophils # 0.1 K/mm3 (0-0.2); Basophils % 1.2 % (0.1-2.0); Eosinophils # 0.1 K/mm3 (0.0-0.4); Eosinophils % 1.7 % (0.1-12.0); Hematocrit 30.8 % (37.0-47.0); Hemoglobin 10.3 g/dL (12.2-16.2); Lymphocytes # 1.2 K/mm3 (0.7-4.5); Lymphocytes % 16.1 % (10-50); Mean Corpuscular HGB Conc 33.5 g/dL (31.8-35.4); Mean Corpuscular Hemoglobin 28.9 pg (27.0-31.2); Mean Corpuscular Volume 86.3 fl (81-99); Mean Platelet Volume 6.7 fl (7.4-10.4); Monocytes # 0.7 K/mm3 (0.1-1.0); Monocytes % 9.5 % (1.7-9.3); Neutrophils # 5.6 K/mm3 (1.8-7.8); Neutrophils % 71.5 % (37.0-80.0); Platelet Count 450 K/mm3 (142-424); Red Blood Count 3.57 M/mm3 (4.20-5.40); Red Cell Distribution Width 15.5 % (11.5-17.5); White Blood Count 7.8 K/mm3 (4.8-10.8)
[2021-10-04 16:33] LABS: Free T4 (Free Thyroxine) 1.49 ng/dl (0.78-2.19)
[2021-10-04 16:42] LABS: Erythrocyte Sedimentation Rate 114 mm/hr (0-30)
[2021-10-04 17:07] LABS: Alanine Aminotransferase 18 U/L (12-78); Albumin Level 3.9 g/dl (3.5-5.0); Albumin/Globulin Ratio 1.3 (1.1-1.8); Alkaline Phosphatase 69 U/L (38-126); Anion Gap 13.8 mEq/L (5-15); Aspartate Amino Transferase 25 U/L (14-36); Blood Urea Nitrogen 16 mg/dl (7-17); Calcium 9.6 mg/dl (8.4-10.2); Carbon Dioxide 30 mmol/L (22.0-30.0); Chloride 90 mmol/L (98-107); Creatine Kinase 95 U/L (30-135); Estimated Glomerular Filt Rate 55 ml/min (>60); GFR (African American) 66 ML/MIN (>60); Globulin 2.9 g/dL (1.3-3.2); Glucose 80 mg/dl (74-100); Potassium 3.8 mmoL/L (3.5-5.1); Sodium 130 mmol/L (136-145); Total Protein,Serum 6.8 g/dl (6.3-8.2); Uric Acid 6.1 mg/dl (2.5-6.2)
[2021-10-04 17:09] LABS: Bilirubin,Total < 0.1 mg/dl (0.2-1.3)
[2021-10-04 17:12] LABS: C-Reactive Protein 89.5 mg/L (0-4)
[2021-10-04 17:21] LABS: Intact Parathyroid Hormone 32.1 pg/mL (7.5-53.5)
[2021-10-04 17:40] LABS: Thyroid Stimulating Hormone 4.82 uIU/mL (0.465-4.68)
[2021-10-04 18:16] LABS: Folate > 20.00 ng/mL; Vitamin B12 495 pg/mL (239-931)
[2021-10-06 08:19] LABS: RA Latex Turbid. 10.8 IU/mL (<14.0)
[2021-10-07 01:16] LABS: Anti-Cyclic Citrullinated Pept 43 units (0-19)
== END ==
PROVIDERS: PCP Internal Medicine; Visit Provider Internal Medicine Rheumatology
DX: D64.9 Anemia, unspecified (principal); R53.83 Other fatigue; M35.3 Polymyalgia rheumatica; M47.812 Spondylosis without myelopathy or radiculopathy, cervical region; M47.9 Spondylosis, unspecified
CPT/HCPCS: 36415; 73030; 80053; 82550; 82607; 82746; 83970; 84439; 84443; 84550; 85025; 85651; 86140; 86200; 86431

== ENCOUNTER → 2021-11-05 10:57 | Outpatient (CLI) | payer MEDICARE, OTHER, SELFPAY ==
[2021-11-05 11:31] LABS: Basophils # 0.1 K/mm3 (0-0.2); Basophils % 0.3 % (0.1-2.0); Eosinophils % 0.1 % (0.1-12.0); Hematocrit 32.8 % (37.0-47.0); Hemoglobin 11.1 g/dL (12.2-16.2); Lymphocytes # 0.9 K/mm3 (0.7-4.5); Lymphocytes % 5.5 % (10-50); Mean Corpuscular HGB Conc 33.7 g/dL (31.8-35.4); Mean Corpuscular Hemoglobin 30.1 pg (27.0-31.2); Mean Corpuscular Volume 89.4 fl (81-99); Mean Platelet Volume 7.4 fl (7.4-10.4); Monocytes # 0.4 K/mm3 (0.1-1.0); Monocytes % 2.7 % (1.7-9.3); Neutrophils # 14.4 K/mm3 (1.8-7.8); Neutrophils % 91.4 % (37.0-80.0); Platelet Count 387 K/mm3 (142-424); Red Blood Count 3.67 M/mm3 (4.20-5.40); Red Cell Distribution Width 17.4 % (11.5-17.5); White Blood Count 15.7 K/mm3 (4.8-10.8)
[2021-11-05 11:32] LABS: MANUAL DIFFERENTIAL MANUAL DIFFERENTIAL (MANUAL DIFF)
[2021-11-05 11:55] LABS: Alanine Aminotransferase 20 U/L (12-78); Albumin Level 3.9 g/dl (3.5-5.0); Albumin/Globulin Ratio 1.6 (1.1-1.8); Alkaline Phosphatase 57 U/L (38-126); Anion Gap 13.1 mEq/L (5-15); Aspartate Amino Transferase 27 U/L (14-36); Blood Urea Nitrogen 25 mg/dl (7-17); Calcium 9.6 mg/dl (8.4-10.2); Carbon Dioxide 28 mmol/L (22.0-30.0); Chloride 93 mmol/L (98-107); Estimated Glomerular Filt Rate 49 ml/min (>60); GFR (African American) 59 ML/MIN (>60); Globulin 2.5 g/dL (1.3-3.2); Glucose 89 mg/dl (74-100); Potassium 4.1 mmoL/L (3.5-5.1); Sodium 130 mmol/L (136-145); Total Protein,Serum 6.4 g/dl (6.3-8.2)
[2021-11-05 11:56] LABS: Bilirubin,Total < 0.1 mg/dl (0.2-1.3)
[2021-11-05 12:00] LABS: C-Reactive Protein 3.6 mg/L (0-4); Erythrocyte Sedimentation Rate 38 mm/hr (0-30)
[2021-11-05 12:18] LABS: Lymphocytes % 6 % (10-50); Monocytes % 2 % (2-9); Neutrophils % 92 % (42-76); Total Cells Counted 100
[2021-11-05 12:20] LABS: Ovalocytes 1+; Platelet Estimate Normal
== END ==
PROVIDERS: PCP Internal Medicine; Visit Provider Internal Medicine Rheumatology
DX: D64.9 Anemia, unspecified (principal); M35.3 Polymyalgia rheumatica; M47.812 Spondylosis without myelopathy or radiculopathy, cervical region; R53.83 Other fatigue
CPT/HCPCS: 36415; 80053; 85007; 85025; 85651; 86140

== ENCOUNTER → 2021-12-06 08:18 | Outpatient (CLI) | payer MEDICARE, OTHER, SELFPAY ==
[2021-12-06 08:39] LABS: Basophils # 0.1 K/mm3 (0-0.2); Basophils % 0.7 % (0.1-2.0); Eosinophils # 0.1 K/mm3 (0.0-0.4); Eosinophils % 0.8 % (0.1-12.0); Hematocrit 33.2 % (37.0-47.0); Hemoglobin 11.4 g/dL (12.2-16.2); Lymphocytes # 2.8 K/mm3 (0.7-4.5); Lymphocytes % 35.3 % (10-50); Mean Corpuscular HGB Conc 34.4 g/dL (31.8-35.4); Mean Corpuscular Hemoglobin 30.3 pg (27.0-31.2); Mean Corpuscular Volume 88.1 fl (81-99); Mean Platelet Volume 6.3 fl (7.4-10.4); Monocytes # 0.4 K/mm3 (0.1-1.0); Monocytes % 5.2 % (1.7-9.3); Neutrophils # 4.6 K/mm3 (1.8-7.8); Platelet Count 363 K/mm3 (142-424); Red Blood Count 3.76 M/mm3 (4.20-5.40); Red Cell Distribution Width 17.7 % (11.5-17.5); White Blood Count 7.9 K/mm3 (4.8-10.8)
[2021-12-06 09:08] LABS: Alanine Aminotransferase 19 U/L (12-78); Albumin Level 3.7 g/dl (3.5-5.0); Albumin/Globulin Ratio 1.4 (1.1-1.8); Alkaline Phosphatase 48 U/L (38-126); Anion Gap 10.7 mEq/L (5-15); Aspartate Amino Transferase 25 U/L (14-36); Blood Urea Nitrogen 29 mg/dl (7-17); Calcium 9.3 mg/dl (8.4-10.2); Carbon Dioxide 32 mmol/L (22.0-30.0); Chloride 93 mmol/L (98-107); Erythrocyte Sedimentation Rate 42 mm/hr (0-30); Estimated Glomerular Filt Rate 49 ml/min (>60); GFR (African American) 59 ML/MIN (>60); Globulin 2.6 g/dL (1.3-3.2); Glucose 83 mg/dl (74-100); Potassium 3.7 mmoL/L (3.5-5.1); Sodium 132 mmol/L (136-145); Total Protein,Serum 6.3 g/dl (6.3-8.2)
[2021-12-06 09:14] LABS: Bilirubin,Total 0.1 mg/dl (0.2-1.3); C-Reactive Protein 6.2 mg/L (0-4)
[2021-12-06 09:39] LABS: Thyroid Stimulating Hormone 0.81 uIU/mL (0.465-4.68)
== END ==
PROVIDERS: PCP Internal Medicine; Visit Provider Internal Medicine Rheumatology
DX: D64.9 Anemia, unspecified (principal); E03.9 Hypothyroidism, unspecified; M35.3 Polymyalgia rheumatica; M47.812 Spondylosis without myelopathy or radiculopathy, cervical region; M47.9 Spondylosis, unspecified; R53.83 Other fatigue
CPT/HCPCS: 36415; 80053; 84443; 85025; 85651; 86140

== ENCOUNTER → 2021-12-27 08:26 | Outpatient (CLI) | payer MEDICARE, OTHER, SELFPAY ==
[2021-12-27 08:46] LABS: Basophils # 0.1 K/mm3 (0-0.2); Basophils % 0.9 % (0.1-2.0); Eosinophils # 0.2 K/mm3 (0.0-0.4); Eosinophils % 2.6 % (0.1-12.0); Hematocrit 34.8 % (37.0-47.0); Hemoglobin 11.2 g/dL (12.2-16.2); Lymphocytes # 1.7 K/mm3 (0.7-4.5); Lymphocytes % 19.1 % (10-50); Mean Corpuscular HGB Conc 32.2 g/dL (31.8-35.4); Mean Corpuscular Hemoglobin 31.3 pg (27.0-31.2); Mean Corpuscular Volume 97.1 fl (81-99); Mean Platelet Volume 7.3 fl (7.4-10.4); Monocytes # 0.5 K/mm3 (0.1-1.0); Monocytes % 5.3 % (1.7-9.3); Neutrophils # 6.5 K/mm3 (1.8-7.8); Neutrophils % 72.2 % (37.0-80.0); Platelet Count 371 K/mm3 (142-424); Red Blood Count 3.59 M/mm3 (4.20-5.40); Red Cell Distribution Width 18.8 % (11.5-17.5)
[2021-12-27 09:51] LABS: Iron 58 ug/dL (37-170)
[2021-12-27 10:08] LABS: Total Iron Binding Capacity 251 ug/dL (265-497)
[2021-12-27 10:27] LABS: Ferritin 203 ng/ml (11.1-264)
== END ==
PROVIDERS: PCP Internal Medicine; Visit Provider Internal Medicine Medical Oncology
DX: D64.9 Anemia, unspecified (principal)
CPT/HCPCS: 36415; 82728; 83540; 83550; 85025

== ENCOUNTER → 2022-03-16 08:58 | Outpatient (CLI) | payer MEDICARE, OTHER, SELFPAY ==
[2022-03-16 10:01] LABS: Hemoglobin 12.2 g/dL (12.2-16.2)
[2022-03-16 10:37] LABS: Chol/HDL Ratio 2.3 (1-3.5); Cholesterol 171 mg/dl (140-200); HDL Cholesterol 75 mg/dl (40-60); Triglycerides 127 mg/dl (30-150); VLDL Cholesterol 25 mg/dL (0-40)
[2022-03-16 10:48] LABS: Direct LDL Cholesterol 65.53 mg/dL (100-129)
[2022-03-16 11:08] LABS: Thyroid Stimulating Hormone < 0.02 uIU/mL (0.465-4.68)
== END ==
PROVIDERS: PCP Internal Medicine; Visit Provider Internal Medicine
DX: I25.10 Atherosclerotic heart disease of native coronary artery without angina pectoris (principal); I10 Essential (primary) hypertension; E78.5 Hyperlipidemia, unspecified
CPT/HCPCS: 36415; 80061; 84443; 85018

== ENCOUNTER → 2022-03-24 08:38 | Outpatient (CLI) | payer MEDICARE, OTHER, SELFPAY ==
[2022-03-24 09:31] LABS: Basophils # 0.1 K/mm3 (0-0.2); Basophils % 1.2 % (0.1-2.0); Eosinophils # 0.1 K/mm3 (0.0-0.4); Eosinophils % 0.9 % (0.1-12.0); Hematocrit 36.2 % (37.0-47.0); Hemoglobin 12.1 g/dL (12.2-16.2); Lymphocytes # 2.2 K/mm3 (0.7-4.5); Lymphocytes % 33.6 % (10-50); Mean Corpuscular HGB Conc 33.3 g/dL (31.8-35.4); Mean Corpuscular Volume 99.2 fl (81-99); Mean Platelet Volume 7.4 fl (7.4-10.4); Monocytes # 0.5 K/mm3 (0.1-1.0); Monocytes % 7.6 % (1.7-9.3); Neutrophils # 3.8 K/mm3 (1.8-7.8); Neutrophils % 56.6 % (37.0-80.0); Platelet Count 382 K/mm3 (142-424); Red Blood Count 3.65 M/mm3 (4.20-5.40); Red Cell Distribution Width 14.2 % (11.5-17.5); White Blood Count 6.7 K/mm3 (4.8-10.8)
[2022-03-24 10:11] LABS: Alanine Aminotransferase 22 U/L (12-78); Albumin Level 4.3 g/dl (3.5-5.0); Albumin/Globulin Ratio 1.9 (1.1-1.8); Alkaline Phosphatase 51 U/L (38-126); Anion Gap 12.7 mEq/L (5-15); Aspartate Amino Transferase 32 U/L (14-36); Bilirubin,Total 0.3 mg/dl (0.2-1.3); Blood Urea Nitrogen 20 mg/dl (7-17); Calcium 9.9 mg/dl (8.4-10.2); Carbon Dioxide 32 mmol/L (22.0-30.0); Chloride 93 mmol/L (98-107); Estimated Glomerular Filt Rate 49 ml/min (>60); GFR (African American) 59 ML/MIN (>60); Globulin 2.3 g/dL (1.3-3.2); Glucose 72 mg/dl (74-100); Potassium 3.7 mmoL/L (3.5-5.1); Sodium 134 mmol/L (136-145); Total Protein,Serum 6.6 g/dl (6.3-8.2)
[2022-03-24 10:16] LABS: Erythrocyte Sedimentation Rate 22 mm/hr (0-30)
== END ==
PROVIDERS: PCP Internal Medicine; Visit Provider Internal Medicine Rheumatology
DX: D64.9 Anemia, unspecified (principal); M35.3 Polymyalgia rheumatica; M47.812 Spondylosis without myelopathy or radiculopathy, cervical region; M47.9 Spondylosis, unspecified; R53.83 Other fatigue
CPT/HCPCS: 36415; 80053; 85025; 85651; 86140

== ENCOUNTER → 2022-05-27 16:41 | Outpatient (CLI) | payer MEDICARE, OTHER, SELFPAY ==
[2022-05-27 18:33] LABS: Basophils % 0.3 % (0.1-2.0); Eosinophils % 0.1 % (0.1-12.0); Hematocrit 36.5 % (37.0-47.0); Hemoglobin 11.9 g/dL (12.2-16.2); Lymphocytes # 1.2 K/mm3 (0.7-4.5); Lymphocytes % 11.8 % (10-50); Mean Corpuscular HGB Conc 32.5 g/dL (31.8-35.4); Mean Corpuscular Volume 98.5 fl (81-99); Mean Platelet Volume 8.2 fl (7.4-10.4); Monocytes # 0.4 K/mm3 (0.1-1.0); Monocytes % 3.8 % (1.7-9.3); Neutrophils # 8.4 K/mm3 (1.8-7.8); Platelet Count 398 K/mm3 (142-424); Red Blood Count 3.71 M/mm3 (4.20-5.40); Red Cell Distribution Width 14.4 % (11.5-17.5)
[2022-05-27 18:47] LABS: Alanine Aminotransferase 22 U/L (12-78); Albumin Level 4.7 g/dl (3.5-5.0); Albumin/Globulin Ratio 1.7 (1.1-1.8); Alkaline Phosphatase 43 U/L (38-126); Anion Gap 15.1 mEq/L (5-15); Aspartate Amino Transferase 28 U/L (14-36); Bilirubin,Total 0.5 mg/dl (0.2-1.3); Blood Urea Nitrogen 26 mg/dl (7-17); Calcium 9.5 mg/dl (8.4-10.2); Carbon Dioxide 28 mmol/L (22.0-30.0); Chloride 93 mmol/L (98-107); Estimated Glomerular Filt Rate 44 ml/min (>60); GFR (African American) 54 ML/MIN (>60); Globulin 2.7 g/dL (1.3-3.2); Glucose 102 mg/dl (74-100); Potassium 4.1 mmoL/L (3.5-5.1); Sodium 132 mmol/L (136-145); Total Protein,Serum 7.4 g/dl (6.3-8.2)
[2022-05-27 18:53] LABS: C-Reactive Protein 1.5 mg/L (0-4)
[2022-05-27 19:09] LABS: Erythrocyte Sedimentation Rate 23 mm/hr (0-30)
[2022-05-27 19:20] LABS: Thyroid Stimulating Hormone < 0.02 uIU/mL (0.465-4.68)
== END ==
PROVIDERS: PCP Internal Medicine; Visit Provider Internal Medicine
DX: I10 Essential (primary) hypertension (principal); E03.9 Hypothyroidism, unspecified; M79.7 Fibromyalgia; M06.9 Rheumatoid arthritis, unspecified; M35.3 Polymyalgia rheumatica; R76.8 Other specified abnormal immunological findings in serum
CPT/HCPCS: 80053; 84443; 85025; 85651; 86140

== ENCOUNTER → 2022-07-01 08:37 | Outpatient (CLI) | payer MEDICARE, OTHER, SELFPAY ==
[2022-07-01 09:43] LABS: Basophils # 0.1 K/mm3 (0-0.2); Basophils % 1.3 % (0.1-2.0); Eosinophils # 0.1 K/mm3 (0.0-0.4); Eosinophils % 1.9 % (0.1-12.0); Hematocrit 36.5 % (37.0-47.0); Hemoglobin 12.2 g/dL (12.2-16.2); Lymphocytes # 2.1 K/mm3 (0.7-4.5); Lymphocytes % 31.8 % (10-50); Mean Corpuscular HGB Conc 33.4 g/dL (31.8-35.4); Mean Corpuscular Hemoglobin 32.4 pg (27.0-31.2); Mean Platelet Volume 7.6 fl (7.4-10.4); Monocytes # 0.6 K/mm3 (0.1-1.0); Monocytes % 8.2 % (1.7-9.3); Neutrophils # 3.8 K/mm3 (1.8-7.8); Neutrophils % 56.8 % (37.0-80.0); Platelet Count 325 K/mm3 (142-424); Red Blood Count 3.76 M/mm3 (4.20-5.40); Red Cell Distribution Width 14.7 % (11.5-17.5); White Blood Count 6.7 K/mm3 (4.8-10.8)
[2022-07-01 10:15] LABS: Erythrocyte Sedimentation Rate 20 mm/hr (0-30)
[2022-07-01 10:18] LABS: Alanine Aminotransferase 20 U/L (12-78); Albumin Level 4.3 g/dl (3.5-5.0); Albumin/Globulin Ratio 1.7 (1.1-1.8); Alkaline Phosphatase 38 U/L (38-126); Anion Gap 7.9 mEq/L (5-15); Aspartate Amino Transferase 28 U/L (14-36); Bilirubin,Total 0.3 mg/dl (0.2-1.3); Blood Urea Nitrogen 22 mg/dl (7-17); Calcium 9.1 mg/dl (8.4-10.2); Carbon Dioxide 32 mmol/L (22.0-30.0); Chloride 97 mmol/L (98-107); Estimated Glomerular Filt Rate 40 ml/min (>60); GFR (African American) 49 ML/MIN (>60); Globulin 2.5 g/dL (1.3-3.2); Glucose 79 mg/dl (74-100); Potassium 3.9 mmoL/L (3.5-5.1); Sodium 133 mmol/L (136-145); Total Protein,Serum 6.8 g/dl (6.3-8.2)
[2022-07-01 10:23] LABS: C-Reactive Protein 2.1 mg/L (0-4)
== END ==
PROVIDERS: PCP Internal Medicine; Visit Provider Internal Medicine Rheumatology
DX: D64.9 Anemia, unspecified (principal); M05.8 Other rheumatoid arthritis with rheumatoid factor; M35.3 Polymyalgia rheumatica; M47.812 Spondylosis without myelopathy or radiculopathy, cervical region; M47.9 Spondylosis, unspecified
CPT/HCPCS: 36415; 80053; 85025; 85651; 86140

== ENCOUNTER → 2022-07-19 14:26 | Outpatient (POV) | payer MEDICARE, OTHER, SELFPAY | PROVIDERS: Visit Provider Dermatology | DX: Z00.00 Encounter for general adult medical examination without abnormal findings (principal) ==

== ENCOUNTER → 2022-08-29 16:00 | Outpatient (CLI) | payer MEDICARE, OTHER, SELFPAY | PROVIDERS: PCP Internal Medicine; Visit Provider Internal Medicine | DX: E03.9 Hypothyroidism, unspecified (principal) ==

== ENCOUNTER → 2022-08-29 17:03 | Outpatient (CLI) | payer MEDICARE, OTHER, SELFPAY | PROVIDERS: PCP Internal Medicine; Visit Provider Internal Medicine | DX: E03.9 Hypothyroidism, unspecified (principal) | CPT/HCPCS: 84443 ==

== ENCOUNTER → 2022-10-28 10:09 | Outpatient (CLI) | payer MEDICARE, OTHER, SELFPAY | PROVIDERS: PCP Internal Medicine; Visit Provider Internal Medicine | DX: E03.9 Hypothyroidism, unspecified (principal) | CPT/HCPCS: 36415; 84443 ==

== ENCOUNTER → 2022-10-31 12:01 | Outpatient (CLI) | payer MEDICARE, OTHER, SELFPAY ==
[2022-10-31 12:14] LABS: Adenovirus F 40/41, stool Not Detected (NotDetected); Astrovirus Not Detected (NotDetected); Campylobacter Not Detected (NotDetected); Clostridium Difficile A/B, PCR Not Detected (NotDetected); Cryptosporidium Not Detected (NotDetected); Cyclospora Cayetanesis Not Detected (NotDetected); Entamoeba histolytica Not Detected (NotDetected); Enteroaggregative E coli Not Detected (NotDetected); Enteropathogenic E coli Not Detected (NotDetected); Enterotoxigenic E coli Not Detected (NotDetected); Giardia lamblia Not Detected (NotDetected); Norovirus Not Detected (NotDetected); Plesimonas Shigalloides, PCR Not Detected (NotDetected); Rotavirus A Not Detected (NotDetected); Salmonella, PCR Not Detected (NotDetected); Sapovirus Not Detected (NotDetected); Shiga-like toxin E coli Not Detected (NotDetected); Shigella Enterovasive E coli Not Detected (NotDetected); Vibrio Cholerae Not Detected (NotDetected); Vibrio, PCR Not Detected (NotDetected); Yersinia Entercolitica, PCR Not Detected (NotDetected)
== END ==
PROVIDERS: PCP Internal Medicine; Visit Provider Internal Medicine
DX: R19.7 Diarrhea, unspecified (principal)
CPT/HCPCS: 87506

== ENCOUNTER → 2022-11-01 07:37 | Outpatient (CLI) | payer MEDICARE, OTHER, SELFPAY ==
[2022-11-01 09:11] LABS: Basophils % 0.7 % (0.1-2.0); Eosinophils # 0.2 K/mm3 (0.0-0.4); Eosinophils % 2.7 % (0.1-12.0); Hematocrit 36.7 % (37.0-47.0); Hemoglobin 11.9 g/dL (12.2-16.2); Lymphocytes # 1.8 K/mm3 (0.7-4.5); Lymphocytes % 28.9 % (10-50); Mean Corpuscular HGB Conc 32.5 g/dL (31.8-35.4); Mean Corpuscular Hemoglobin 30.8 pg (27.0-31.2); Mean Corpuscular Volume 94.9 fl (81-99); Mean Platelet Volume 7.8 fl (7.4-10.4); Monocytes # 0.3 K/mm3 (0.1-1.0); Monocytes % 5.3 % (1.7-9.3); Neutrophils # 3.9 K/mm3 (1.8-7.8); Neutrophils % 62.4 % (37.0-80.0); Platelet Count 291 K/mm3 (142-424); Red Blood Count 3.87 M/mm3 (4.20-5.40); Red Cell Distribution Width 14.4 % (11.5-17.5); White Blood Count 6.2 K/mm3 (4.8-10.8)
[2022-11-01 09:23] LABS: Alanine Aminotransferase 46 U/L (12-78); Albumin Level 4.5 g/dl (3.5-5.0); Albumin/Globulin Ratio 1.7 (1.1-1.8); Alkaline Phosphatase 46 U/L (38-126); Aspartate Amino Transferase 57 U/L (14-36); Bilirubin,Total 0.5 mg/dl (0.2-1.3); Blood Urea Nitrogen 23 mg/dl (7-17); Calcium 9.8 mg/dl (8.4-10.2); Carbon Dioxide 31 mmol/L (22.0-30.0); Chloride 86 mmol/L (98-107); Estimated Glomerular Filt Rate 40 ml/min (>60); GFR (African American) 49 ML/MIN (>60); Globulin 2.7 g/dL (1.3-3.2); Glucose 82 mg/dl (74-100); Sodium 128 mmol/L (136-145); Total Protein,Serum 7.2 g/dl (6.3-8.2)
[2022-11-01 09:25] LABS: Anion Gap 15.2 mEq/L (5-15); Potassium 4.2 mmoL/L (3.5-5.1)
[2022-11-01 09:32] LABS: C-Reactive Protein 2.4 mg/L (0-4)
[2022-11-01 11:07] LABS: Erythrocyte Sedimentation Rate 40 mm/hr (0-30)
== END ==
PROVIDERS: PCP Internal Medicine; Visit Provider Internal Medicine Rheumatology
DX: M05.8 Other rheumatoid arthritis with rheumatoid factor (principal)
CPT/HCPCS: 36415; 80053; 85025; 85651; 86140

== ENCOUNTER → 2022-11-10 08:37 | Outpatient (CLI) | payer MEDICARE, OTHER, SELFPAY ==
--- NOTE | 2022-11-10 08:45 | CT_ITS ---
FINAL REPORT TECHNIQUE: Axial images through the abdomen and pelvis were performed without contrast. This study was performed with techniques to keep radiation doses as low as reasonably achievable, (ALARA). Individualized dose reduction techniques using automated exposure control or adjustment of mA and/or kV according to the patient's size were employed. CLINICAL HISTORY: FLANK PAIN, diverticulitis FINDINGS: Abdomen: There is a calcified granuloma present in the right lower lobe. In addition there is scarring in the left lung base. The liver parenchyma is homogeneous. The gallbladder is surgically absent. The spleen, pancreas, adrenals are unremarkable. There is a small focus in the right renal cortex measuring 5 mm that is indeterminate but favor a complex cyst. Pelvis: There is streak artifact overlying the pelvis secondary to a right hip prosthesis. A large amount of stool is present throughout the colon and there may be mild thickening of the wall of the proximal descending colon that would be compatible with mild stercoral colitis. The urinary bladder is unremarkable. The appendix is not visualized. There is no pelvic mass or inflammation. IMPRESSION: Large amount of stool present in the colon, with mild thickening of the wall of the proximal descending colon that may represent mild stercoral colitis. Small low-attenuation focus in the right renal cortex, 5 mm in size, indeterminate but favor a complex cyst. CT with contrast or ultrasound might be helpful for further evaluation. Reviewed, Interpreted and Dictated by Sohail Joyner MD Transcribed by Julianna Mathis Authenticated and [facility]
== END ==
PROVIDERS: PCP Internal Medicine; Visit Provider Internal Medicine
DX: R10.9 Unspecified abdominal pain (principal); K57.92 Diverticulitis of intestine, part unspecified, without perforation or abscess without bleeding
CPT/HCPCS: 74176

== ENCOUNTER → 2022-12-20 15:31 | Outpatient (CLI) | payer MEDICARE, OTHER, SELFPAY ==
[2022-12-20 18:28] LABS: Sodium 129 mmol/L (136-145)
== END ==
PROVIDERS: PCP Internal Medicine; Visit Provider Internal Medicine
DX: E87.1 Hypo-osmolality and hyponatremia (principal)
CPT/HCPCS: 84295; 84443

== ENCOUNTER → 2023-01-06 15:59 | Outpatient (CLI) | payer MEDICARE, OTHER, SELFPAY ==
[2023-01-06 16:19] LABS: Chloride 100 mmol/L (98-107); Potassium 3.6 mmoL/L (3.5-5.1); Sodium 137 mmol/L (136-145)
[2023-01-06 16:22] LABS: Anion Gap 13.6 mEq/L (5-15); Blood Urea Nitrogen 24 mg/dl (7-17); Calcium 9.3 mg/dl (8.4-10.2); Carbon Dioxide 27 mmol/L (22.0-30.0); Estimated Glomerular Filt Rate 55 ml/min (>60); GFR (African American) 66 ML/MIN (>60); Glucose 84 mg/dl (74-100)
== END ==
PROVIDERS: PCP Internal Medicine; Visit Provider Internal Medicine
DX: I10 Essential (primary) hypertension (principal); E87.1 Hypo-osmolality and hyponatremia
CPT/HCPCS: 80048

== ENCOUNTER → 2023-01-27 11:47 | Outpatient (CLI) | payer MEDICARE, OTHER, SELFPAY ==
[2023-01-27 13:06] LABS: Free T4 (Free Thyroxine) 1.41 ng/dl (0.78-2.19)
[2023-01-27 13:19] LABS: Thyroid Stimulating Hormone 0.38 uIU/mL (0.465-4.68)
== END ==
PROVIDERS: PCP Internal Medicine; Visit Provider Internal Medicine Endocrinology, Diabetes & Metabolism
DX: E89.0 Postprocedural hypothyroidism (principal)
CPT/HCPCS: 36415; 84439; 84443

== ENCOUNTER → 2023-01-31 11:59 | Outpatient (CLI) | payer MEDICARE, OTHER, SELFPAY ==
[2023-01-31 12:27] LABS: Basophils % 0.4 % (0.1-2.0); Eosinophils # 0.1 K/mm3 (0.0-0.4); Eosinophils % 1.1 % (0.1-12.0); Hematocrit 34.3 % (37.0-47.0); Hemoglobin 10.9 g/dL (12.2-16.2); Lymphocytes # 1.4 K/mm3 (0.7-4.5); Lymphocytes % 16.8 % (10-50); Mean Corpuscular HGB Conc 31.8 g/dL (31.8-35.4); Mean Corpuscular Hemoglobin 30.1 pg (27.0-31.2); Mean Corpuscular Volume 94.6 fl (81-99); Mean Platelet Volume 7.3 fl (7.4-10.4); Monocytes # 0.4 K/mm3 (0.1-1.0); Monocytes % 4.9 % (1.7-9.3); Neutrophils # 6.4 K/mm3 (1.8-7.8); Neutrophils % 76.8 % (37.0-80.0); Platelet Count 362 K/mm3 (142-424); Red Blood Count 3.62 M/mm3 (4.20-5.40); Red Cell Distribution Width 13.9 % (11.5-17.5); White Blood Count 8.4 K/mm3 (4.8-10.8)
[2023-01-31 13:01] LABS: Erythrocyte Sedimentation Rate 43 mm/hr (0-30)
[2023-01-31 14:17] LABS: Alanine Aminotransferase 17 U/L (12-78); Albumin Level 3.7 g/dl (3.5-5.0); Albumin/Globulin Ratio 1.2 (1.1-1.8); Alkaline Phosphatase 72 U/L (38-126); Anion Gap 12.3 mEq/L (5-15); Aspartate Amino Transferase 23 U/L (14-36); Bilirubin,Total 0.3 mg/dl (0.2-1.3); Blood Urea Nitrogen 21 mg/dl (7-17); Calcium 9.1 mg/dl (8.4-10.2); Carbon Dioxide 28 mmol/L (22.0-30.0); Chloride 98 mmol/L (98-107); Estimated Glomerular Filt Rate 49 ml/min (>60); GFR (African American) 59 ML/MIN (>60); Glucose 95 mg/dl (74-100); Potassium 4.3 mmoL/L (3.5-5.1); Sodium 134 mmol/L (136-145); Total Protein,Serum 6.7 g/dl (6.3-8.2)
[2023-01-31 14:26] LABS: C-Reactive Protein 18.4 mg/L (0-4)
== END ==
PROVIDERS: PCP Internal Medicine; Visit Provider Internal Medicine Rheumatology
DX: D64.9 Anemia, unspecified (principal); M35.3 Polymyalgia rheumatica; M05.8 Other rheumatoid arthritis with rheumatoid factor; M47.812 Spondylosis without myelopathy or radiculopathy, cervical region
CPT/HCPCS: 36415; 80053; 85025; 85651; 86140

== ENCOUNTER 2023-03-04 11:39 | Emergency (ER) | payer MEDICARE, OTHER, SELFPAY ==
[2023-03-04] VITALS (7 sets, daily range): BP systolic 167–199; BP diastolic 76–97; PULSE 57–66; RESP 16–18; TEMP 36.6–36.7; O2SAT 96–100; BMI 20.9
--- NOTE | 2023-03-04 12:00 | CT_ITS ---
PROCEDURE INFORMATION: Exam: CTA Neck With Contrast Exam date and time: 03/04/2023 12:19 PM Age: 73 years old Clinical indication: Other: Stroke alert TECHNIQUE: Imaging protocol: Computed tomographic angiography of the neck with contrast. 3D rendering (Not supervised by radiologist): MIP and/or 3D reconstructed images were created by the technologist. Radiation optimization: All CT scans at this facility use at least one of these dose optimization techniques: automated exposure control; mA and/or kV adjustment per patient size (includes targeted exams where dose is matched to clinical indication); or iterative reconstruction. Contrast material: ISOVUE; Contrast volume: 100 ml; Contrast route: INTRAVENOUS (IV); REPORTING DATA: Count of CT and Cardiac NM exams in prior 12 months: This patient has received [address] and 0 known cardiac nuclear medicine studies in the 12 months prior to the current study. COMPARISON: MR CERVICAL SPINE WO CON 05/10/2021 2:17 PM FINDINGS: Right common carotid artery: No stenosis. No dissection or occlusion. Right internal carotid artery: No stenosis of the extracranial segment. No dissection or occlusion. Right external carotid artery: No occlusion or stenosis of the origin. Left common carotid artery: No stenosis. No dissection or occlusion. Left internal carotid artery: No stenosis of the extracranial segment. No dissection or occlusion. Left external carotid artery: No occlusion or stenosis of the origin. Right vertebral artery: No stenosis. No dissection or occlusion. Left vertebral artery: No stenosis. No dissection or occlusion. Aorta: Ascending aorta measures 3.4 x 3.7 cm. Lymph nodes: Calcified mediastinal and hilar lymph nodes suggest prior granulomatous exposure. Soft tissues: Normal. No significant soft tissue swelling. Bones/joints: Surgical changes are present in the cervical spine. No acute osseous abnormality. IMPRESSION: No large vessel occlusion or dissection REFERENCES: NASCET CRITERIA. The degree of stenosis in the cervical segment of the internal carotid artery is based on NASCET criteria. Normal is no stenosis. Mild is less than 50% stenosis. Moderate is 50-69% stenosis. Severe is 70% to 99% stenosis. Total occlusion is no detectable patent lumen.
--- NOTE | 2023-03-04 12:00 | CT_ITS ---
PROCEDURE INFORMATION: Exam: CT Head Without Contrast Exam date and time: 03/04/2023 12:12 PM Age: 73 years old Clinical indication: Stroke-like symptoms; Drowsines/somnolence; Additional info: Stroke alert TECHNIQUE: Imaging protocol: Computed tomography of the head without contrast. Radiation optimization: All CT scans at this facility use at least one of these dose optimization techniques: automated exposure control; mA and/or kV adjustment per patient size (includes targeted exams where dose is matched to clinical indication); or iterative reconstruction. Other technique: STROKE PROTOCOL was implemented. REPORTING DATA: Count of CT and Cardiac NM exams in prior 12 months: This patient has received [address] and 0 known cardiac nuclear medicine studies in the 12 months prior to the current study. COMPARISON: MR CERVICAL SPINE WO CON 05/10/2021 2:17 PM FINDINGS: Brain: There is no evidence of acute intracranial hemorrhage, extra-axial collection or locoregional mass effect. There are scattered hypodensities in the periventricular and subcortical white matter. The appearance is nonspecific, but most likely represents chronic small vessel disease in a person of this age Cerebral ventricles: The ventricles, sulci and cisterns are normal in size and configuration for patient's age. No hydrocephalus or midline structure shift Pituitary gland and sella: Sellar/parasellar structures, craniocervical junction and orbits are unremarkable Paranasal sinuses: Visualized sinuses are unremarkable. No fluid levels. Mastoid air cells: Visualized mastoid air cells are well aerated. Bones/joints: No calvarial fracture Soft tissues: Unremarkable. IMPRESSION: No acute intracranial abnormality. If focal neurological symptoms persist brain MRI can be obtained for better evaluation ASSESSMENT: ASPECTS ([facility]ira Stroke Program Early CT Score) is 10.
--- NOTE | 2023-03-04 12:00 | CT_ITS ---
PROCEDURE INFORMATION: Exam: CTA Head With Contrast, Arteriography Exam date and time: 03/04/2023 12:19 PM Age: 73 years old Clinical indication: Other: Stroke alert TECHNIQUE: Imaging protocol: Computed tomographic angiography of the head with contrast. Exam focused on the arteries. 3D rendering (Not supervised by radiologist): MIP and/or 3D reconstructed images were created by the technologist. Radiation optimization: All CT scans at this facility use at least one of these dose optimization techniques: automated exposure control; mA and/or kV adjustment per patient size (includes targeted exams where dose is matched to clinical indication); or iterative reconstruction. Contrast material: ISOVUE; Contrast volume: 100 ml; Contrast route: INTRAVENOUS (IV); REPORTING DATA: Count of CT and Cardiac NM exams in prior 12 months: This patient has received [address] and 0 known cardiac nuclear medicine studies in the 12 months prior to the current study. COMPARISON: CT HEAD/BRAIN WO CON 03/04/2023 12:12 PM FINDINGS: ANTERIOR CIRCULATION: Right internal carotid artery: Intracranial segment is patent with no significant stenosis. No aneurysm. Right middle cerebral artery: No occlusion or significant stenosis. No aneurysm. Right anterior cerebral artery: No occlusion or significant stenosis. No aneurysm. Left internal carotid artery: Intracranial segment is patent with no significant stenosis. No aneurysm. Left middle cerebral artery: No occlusion or significant stenosis. No aneurysm. Left anterior cerebral artery: No occlusion or significant stenosis. No aneurysm. POSTERIOR CIRCULATION: Right vertebral artery: No occlusion or significant stenosis. No aneurysm. Left vertebral artery: No occlusion or significant stenosis. No aneurysm. Basilar artery: There is a 4 x 3 mm anteriorly projected outpouching emanating from the basilar tip. The aneurysm is projected into the interpedicular fossa along the course of the right 3rd cranial nerve. Right posterior cerebral artery: No occlusion or significant stenosis. No aneurysm. Left posterior cerebral artery: No occlusion or significant stenosis. No aneurysm. Brain: No definite mass, mass effect, or midline shift. Cerebral ventricles: No ventriculomegaly. Bones/joints: Unremarkable. No acute fracture. Soft tissues: Unremarkable. IMPRESSION: 1. No large vessel occlusion. 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 The aneurysm is projected into the interpedicular fossa along the course of the right 3rd cranial nerve.
--- NOTE | 2023-03-04 12:00 | PC.NURSE ---
Dr Chi called pt a stroke alert, rad advised
--- NOTE | 2023-03-04 12:02 | PC.NURSE ---
Dr Chi calling stroke alert on pt, ron called pt moved to monitoring room
--- NOTE | 2023-03-04 12:03 | HMH.EDGENADL ---
Discharge Plan Disposition Patient Disposition: Xfer Short-Term Hosp Condition: Good Chief Complaint: Altered Mental Status Prescriptions Prescriptions: No Action rosuvastatin 20 mg tablet 20 mg PO DAILY lorazepam 1 mg tablet 1 mg PO DAILY folic acid 1 mg tablet 1 mg PO DAILY methotrexate sodium 2.5 mg tablet 2.5 mg PO WEEKLY alendronate 70 mg tablet 70 mg PO WEEKLY telmisartan 20 MG tablet 20 mg PO DAILY levothyroxine 75 mcg Tablet 75 mcg PO DAILYDM metoprolol succinate 25 mg tablet extended release 24 hr 25 mg PO DAILY potassium citrate 10 MEQ tablet extended release 10 meq PO BID calcium carbonate 600 MG tablet 600 mg PO DAILY glucosamine sulfate 2KCl 1,000 MG tablet 1,000 mg PO DAILY Referrals Follow up/Referrals: Carlton Wyatt MD [Primary Care Provider] - See instructions Activity Restrictions/Add. Instructions Additional Instructions/Restrictions: You were evaluated at the emergency department today for concerns of speech deficit. I believe you most likely had a transient ischemic attack. You are being transferred to [place] for MRI. Clinical Impressions Clinical Impression: TIA (transient ischemic attack) Stand Alone Forms Stand Alone Forms: Transfer Record - ED Instructions Patient Instructions: DI for Altered Mental Status Discharge ED Provider: Frankie Chi General Adult HPI General Chief complaint: Altered Mental Status Stated complaint: confusion Time Seen by Provider: 03/04/23 11:48 Mode of Arrival: Ambulatory Source of Information: Patient and Relative Limitations: No Limitations Description of Symptoms (Recalled from ER Triage Doc. by RN): Family states the patient has been having a hard time finding her words, head doesn't feel right and increased confusion since this morning. History of Present Illness HPI narrative: This 73-year-old female presents to the emergency department with concerns of sudden onset confusion, difficulty with word finding. Patient has a history of an episode like this 1 month ago and she was diagnosed by her primary care physician with an inner ear infection. Patient's daughter is at bedside and states that she and patient were getting ready to can peppers and patient acutely became confused and had difficulty making sense with her speech. Patient is aware of the difficulty making sense. She did not have any fall or traumatic injuries, she does not take blood thinners, no history of stroke or heart attack. She denies other positive review of systems at this time. Onset of symptoms was 40 minutes prior to arrival. Related Data Home Medications Medication Instructions Recorded Confirmed telmisartan 20 mg tablet 20 mg PO DAILY High Blood Pressure 09/22/17 03/04/23 potassium citrate 10 mEq (1,080 10 meq PO BID Supplement 12/21/17 03/04/23 mg) tablet,extended release calcium carbonate 600 mg calcium 600 mg PO DAILY Supplement 10/22/19 03/04/23 (1,500 mg) tablet glucosamine sulfate 2KCl 1,000 mg 1,000 mg PO DAILY Supplement 10/22/19 03/04/23 tablet rosuvastatin 20 mg tablet 20 mg PO DAILY Cholesterol 05/27/21 03/04/23 lorazepam 1 mg tablet 1 mg PO DAILY Anxiety 09/03/21 03/04/23 folic acid 1 mg tablet 1 mg PO DAILY Supplement 12/30/21 03/04/23 alendronate 70 mg tablet 70 mg PO WEEKLY Bone Loss 08/02/22 03/04/23 methotrexate sodium 2.5 mg tablet 2.5 mg PO WEEKLY Arthritis 08/02/22 03/04/23 levothyroxine 75 mcg tablet 75 mcg PO DAILYDM THYROID 03/04/23 03/04/23 metoprolol succinate 25 mg 25 mg PO DAILY High Blood Pressure 03/04/23 03/04/23 tablet,extended release 24 hr Allergies Allergy/AdvReac Type Severity Reaction Status Date / Time Sulfa (Sulfonamide Allergy Verified 01/31/23 11:16 Antibiotics) [facility] Disclaimer: The information contained in this section may have been updated after the patient was seen, as this information can be updated by other use
--- NOTE | 2023-03-04 12:08 | PC.NURSE ---
pt to scan via stretcher
[2023-03-04 12:09] LABS: POC Glucose,Bedside 93 (70-110)
[2023-03-04 12:21] LABS: Basophils % 0.5 % (0.1-2.0); Eosinophils # 0.1 K/mm3 (0.0-0.4); Eosinophils % 1.2 % (0.1-12.0); Hematocrit 34.1 % (37.0-47.0); Hemoglobin 11.6 g/dL (12.2-16.2); Lymphocytes # 1.1 K/mm3 (0.7-4.5); Lymphocytes % 14.9 % (10-50); Mean Corpuscular HGB Conc 33.8 g/dL (31.8-35.4); Mean Corpuscular Hemoglobin 31.3 pg (27.0-31.2); Mean Corpuscular Volume 92.5 fl (81-99); Mean Platelet Volume 7.2 fl (7.4-10.4); Monocytes # 0.5 K/mm3 (0.1-1.0); Monocytes % 6.2 % (1.7-9.3); Neutrophils # 5.9 K/mm3 (1.8-7.8); Neutrophils % 77.3 % (37.0-80.0); Platelet Count 332 K/mm3 (142-424); Red Blood Count 3.69 M/mm3 (4.20-5.40); White Blood Count 7.6 K/mm3 (4.8-10.8)
[2023-03-04 12:23] LABS: Chloride 98 mmol/L (98-107); Potassium 4.4 mmoL/L (3.5-5.1); Sodium 134 mmol/L (136-145)
[2023-03-04 12:25] LABS: Blood Urea Nitrogen 21 mg/dl (7-17); Creatinine Clearance Estimated 35 mL/min (50-200); Estimated Glomerular Filt Rate 49 ml/min (>60); GFR (African American) 59 ML/MIN (>60)
[2023-03-04 12:26] LABS: Alanine Aminotransferase 29 U/L (12-78); Albumin Level 4.2 g/dl (3.5-5.0); Albumin/Globulin Ratio 1.2 (1.1-1.8); Alkaline Phosphatase 66 U/L (38-126); Anion Gap 13.4 mEq/L (5-15); Aspartate Amino Transferase 35 U/L (14-36); Bilirubin,Total 0.4 mg/dl (0.2-1.3); Calcium 9.3 mg/dl (8.4-10.2); Carbon Dioxide 27 mmol/L (22.0-30.0); Globulin 3.5 g/dL (1.3-3.2); Glucose 99 mg/dl (74-100); Total Protein,Serum 7.7 g/dl (6.3-8.2)
--- NOTE | 2023-03-04 12:29 | ECG_ITS ---
APPROVED REPORT Exam: Resting ECG HR:54 bpm ECG Measurements Heart Rate 54 AXES [place] 178 P -19 QRSd 86 QRS -13 QT 455 T 59 QTc 441 Conclusion SINUS BRADYCARDIA BORDERLINE ECG UNCONFIRMED REPORT Electronically signed by : Amadeo Cooper MD 03/05/2023 15:16:51
[2023-03-04 12:32] LABS: INR 1.05 (0.9-1.1); Prothrombin Time 11.3 seconds (10.1-12.5)
[2023-03-04 12:38] LABS: Microscopic, Urine URINE MICROSCOPIC (MICROSCOPIC)
--- NOTE | 2023-03-04 12:40 | PC.NURSE ---
at 1228 viz sallie reports no elvo,sizable apical basilar aneurysm , [facility]
--- NOTE | 2023-03-04 12:45 | PC.NURSE ---
Dr Chi speaking with geoff
--- NOTE | 2023-03-04 12:49 | PC.NURSE ---
JOANIE PÉREZ UPDATING PT.
--- NOTE | 2023-03-04 12:49 | PC.NURSE ---
DAUGHTER AT BEDSIDE. NO QUESTIONS OR CONCERNS VOICED. BED IN LOWEST POSITION. CALL LIGHT WITHIN REACH.
[2023-03-04 12:53] LABS: Free T4 (Free Thyroxine) 1.33 ng/dl (0.78-2.19)
[2023-03-04 12:54] LABS: Appearance,Urine CLEAR (Clear); Bilirubin,Urine Negative (Negative); Blood, Urine TRACE-I (Negative); Color,Urine YELLOW (Yellow); Glucose,Urine (UA) Negative (Negative); Ketones,Urine Negative (Negative); Leukocyte Esterase,Urine Negative (Negative); Nitrate,Urine Negative (Negative); Protein,Urine Negative (Negative); Urobilinogen,Urine 0.2 EU/dl (0.2)
--- NOTE | 2023-03-04 12:59 | PC.NURSE ---
called [facility] for stroke team
[2023-03-04 13:08] LABS: Thyroid Stimulating Hormone 7.89 uIU/mL (0.465-4.68)
--- NOTE | 2023-03-04 13:21 | PC.NURSE ---
pt at bedside
--- NOTE | 2023-03-04 13:21 | PC.NURSE ---
Dr Chi on with [facility] sales recruiting coordinator
--- NOTE | 2023-03-04 13:27 | PC.NURSE ---
called [facility] for stroke team they are to call back
--- NOTE | 2023-03-04 13:35 | PC.NURSE ---
pt assisted to bathroom and back to room. tolerated well.
--- NOTE | 2023-03-04 13:41 | PC.NURSE ---
dr childers is speaking with dr mcgowan at [facility] at this time.
--- NOTE | 2023-03-04 13:56 | PC.NURSE ---
Chi on with [facility]
--- NOTE | 2023-03-04 13:57 | PC.NURSE ---
Dr Chi speaking with Dr Ty
--- NOTE | 2023-03-04 14:13 | EXP.HP ---
[facility] Disclaimer: The information contained in this section may have been updated after the patient was seen, as this information can be updated by other users. Medical History Abnormal EKG CAD (coronary artery disease) Encounter for pre-operative cardiovascular clearance Social History Smoking Status: Never smoker alcohol intake: never counseling provided: none substance use type: denies use current occupational status: retired Travel in the last 8 weeks: None household members: family housing: house caffeine: Yes Review of Systems Constitutional Constitutional: Denies headache(s) and Denies weakness ENT Ears, Nose, Mouth, and Throat: Denies dizziness and Denies headache(s) *Musculoskeletal Musculoskeletal: Denies numbness and Denies tingling *Neurologic Neurologic: Denies dizziness, Denies headache(s), Denies numbness, Denies tingling and Denies weakness Meds Home Medications and Allergies Home Medications Medication Instructions Recorded Confirmed Type telmisartan 20 mg tablet 20 mg PO DAILY BLOOD PRESSURE 09/22/17 03/04/23 History potassium citrate 10 mEq (1,080 10 meq PO BID Supplement 12/21/17 03/04/23 History mg) tablet,extended release calcium carbonate 600 mg calcium 600 mg PO DAILY Supplement 10/22/19 03/04/23 History (1,500 mg) tablet glucosamine sulfate 2KCl 1,000 mg 1,000 mg PO DAILY Supplement 10/22/19 03/04/23 History tablet tramadol 50 mg tablet 50 mg PO DAILY PRN pain 03/08/21 03/04/23 History rosuvastatin 20 mg tablet 20 mg PO DAILY 05/27/21 03/04/23 History lorazepam 1 mg tablet 1 mg PO DAILY 09/03/21 03/04/23 History folic acid 1 mg tablet 1 mg PO DAILY 12/30/21 03/04/23 History alendronate 70 mg tablet 70 mg PO WEEKLY 08/02/22 03/04/23 History methotrexate sodium 2.5 mg tablet 2.5 mg PO WEEKLY 08/02/22 03/04/23 History metoprolol succinate 25 mg See Rx Instructions .Route 01/02/23 03/04/23 Rx tablet,extended release 24 hr .COMPLEX #90 tabs levothyroxine 100 mcg tablet 75 mcg PO DAILY 01/31/23 03/04/23 History arygtyss-jfesrisff-[id number] 3.5 1 drp ophthalmic (eye) DAILY 03/04/23 03/04/23 History mg/mL-10,000 unit/mL-0.1% eye drops New Prescriptions to Start Prescriptions: Allergies Allergy/AdvReac Type Severity Reaction Status Date / Time Sulfa (Sulfonamide Allergy Verified 01/31/23 11:16 Antibiotics) Exam Data for Last 24 hours Vital signs and Labs for Last 24 Hours: Temp Pulse Resp BP Pulse Ox O2 Del Method 97.9 F 66 18 199/86 H 96 Room Air 03/04/23 11:40 03/04/23 13:28 03/04/23 13:28 03/04/23 13:28 03/04/23 13:28 03/04/23 11:40 Laboratory Results - last 24 hr 03/04/23 12:02: POC Glucose 93 03/04/23 12:05: WBC 7.6, RBC 3.69 L, Hgb 11.6 L, Hct 34.1 L, MCV 92.5, MCH 31.3 H, MCHC 33.8, RDW 15.0, Plt Count 332, MPV 7.2 L, Neut % (Auto) 77.3, Lymph % (Auto) 14.9, Yates % (Auto) 6.2, Eos % (Auto) 1.2, Baso % (Auto) 0.5, Neut # (Auto) 5.9, Lymph # (Auto) 1.1, Yates # (Auto) 0.5, Eos # (Auto) 0.1, Baso # (Auto) 0.0, PT 11.3, INR 1.05, APTT 33.0 H, Sodium 134 L, Potassium 4.4, Chloride 98, Carbon Dioxide 27, Anion Gap 13.4, BUN 21 H, Creatinine 1.10 H, Estimated Creat Clear 35, Estimated GFR 49 L, Est GFR ( Amer) 59, Glucose 99, Calcium 9.3, Total Bilirubin 0.4, AST 35, ALT 29, Alkaline Phosphatase 66, Total Protein 7.7, Albumin 4.2, Globulin 3.5 H, Albumin/Globulin Ratio 1.2, TSH 7.89 H, Free T4 1.33 03/04/23 12:33: Urine Color Yellow, Urine Appearance Clear, Urine pH 7.0, Ur Specific [place] 1.010, Urine Protein Negative, Urine Glucose (UA) Negative, Urine Ketones Negative, Urine Blood Trace-i, Urine Nitrate Negative, Urine Bilirubin Negative, Urine Urobilinogen 0.2, Ur Leukocyte Esterase Negative, Urine RBC 3-5, Urine WBC 3-5, Ur Squamous Epith Cells 3-5, Urine Bacteria None I & O for Last 24 hours: Intake & Output 1
--- NOTE | 2023-03-04 14:24 | PC.NURSE ---
ATTEMPTED TO CALL REPORT TO [facility] AND THEY STATED TO CALL BACK IN 10 MINUTES BC THEY DON'T HAVE A BED ASSIGNMENT YET AND CAN'T TAKE REPORT.
--- NOTE | 2023-03-04 14:24 | HMH.PHAINT1 ---
Pharmacy Intervention Comments: MEDICATION RECONCILIATION COMPLETE USING LIST FROM MOST RECENT CARDIOLOGY OFFICE VISIT AND BRANDEN REPORT.
--- NOTE | 2023-03-04 14:32 | PC.NURSE ---
[facility] ER REGISTRATION AWARE OF PT GOING TO [facility] INSTEAD OF BEING ADMITTED HERE.
[2023-03-04 14:36] LABS: Hemoglobin A1C 5.1 % (4.0-6.0)
--- NOTE | 2023-03-04 14:39 | PC.NURSE ---
[facility] AWARE OF TRANSFER TO [facility].
--- NOTE | 2023-03-04 14:39 | PC.NURSE ---
Report called to Evelin at [facility] 5a. Patient will go to room 538.
[2023-03-04 15:01] LABS: Thyroid Stimulating Hormone 8.12 uIU/mL (0.465-4.68)
--- NOTE | 2023-03-04 15:06 | PC.NURSE ---
[facility] HERE TO TRANSPORT PT.
== END 2023-03-04 15:13 | disposition short-term general hospital (02) ==
LOC: ER 12:16 → 2ND 14:16 → ER 14:31
PROVIDERS: Internal Medicine Adolescent Medicine; Emergency Provider Emergency Medicine; PCP Internal Medicine
DX: G45.9 Transient cerebral ischemic attack, unspecified (principal); R00.1 Bradycardia, unspecified; I25.10 Atherosclerotic heart disease of native coronary artery without angina pectoris; I11.9 Hypertensive heart disease without heart failure; E78.5 Hyperlipidemia, unspecified; E03.9 Hypothyroidism, unspecified
CPT/HCPCS: 70450; 70496; 70498; 80053; 81001; 82962; 83036; 84439; 84443; 85025; 85610; 85730; 93005; 99285; Q9967

== ENCOUNTER → 2023-03-13 14:32 | Outpatient (CLI) | payer MEDICARE, OTHER, SELFPAY ==
[2023-03-13 15:28] LABS: Anion Gap 15.4 mEq/L (5-15); Blood Urea Nitrogen 18 mg/dl (7-17); Calcium 8.7 mg/dl (8.4-10.2); Carbon Dioxide 25 mmol/L (22.0-30.0); Chloride 97 mmol/L (98-107); Estimated Glomerular Filt Rate 55 ml/min (>60); GFR (African American) 66 ML/MIN (>60); Glucose 69 mg/dl (74-100); Potassium 4.4 mmoL/L (3.5-5.1); Sodium 133 mmol/L (136-145)
== END ==
PROVIDERS: PCP Internal Medicine; Visit Provider Internal Medicine
DX: I10 Essential (primary) hypertension (principal); E87.1 Hypo-osmolality and hyponatremia; I67.1 Cerebral aneurysm, nonruptured; N18.30 Chronic kidney disease, stage 3 unspecified
CPT/HCPCS: 80048

== ENCOUNTER → 2023-03-27 14:25 | Outpatient (CLI) | payer MEDICARE, OTHER, SELFPAY ==
[2023-03-27 17:01] LABS: Anion Gap 12.7 mEq/L (5-15); Blood Urea Nitrogen 17 mg/dl (7-17); Calcium 9.3 mg/dl (8.4-10.2); Carbon Dioxide 29 mmol/L (22.0-30.0); Chloride 95 mmol/L (98-107); Estimated Glomerular Filt Rate 55 ml/min (>60); GFR (African American) 66 ML/MIN (>60); Glucose 71 mg/dl (74-100); Potassium 4.7 mmoL/L (3.5-5.1); Sodium 132 mmol/L (136-145)
[2023-03-27 17:26] LABS: Thyroid Stimulating Hormone 0.15 uIU/mL (0.465-4.68)
== END ==
PROVIDERS: PCP Internal Medicine; Visit Provider Internal Medicine
DX: E03.9 Hypothyroidism, unspecified (principal); I10 Essential (primary) hypertension
CPT/HCPCS: 80048; 84443

== ENCOUNTER 2023-04-09 14:43 | Emergency (ER) | payer MEDICARE, OTHER, SELFPAY ==
[2023-04-09] VITALS (13 sets, daily range): BP systolic 150–195; BP diastolic 71–96; PULSE 55–69; RESP 11–20; TEMP 36.7; O2SAT 94–100; BMI 21.4
--- NOTE | 2023-04-09 14:51 | XR_ITS ---
PROCEDURE INFORMATION: Exam: XR Chest Exam date and time: 04/09/2023 3:35 PM Age: 73 years old Clinical indication: Other: AMS, slurred speech TECHNIQUE: Imaging protocol: Radiologic exam of the chest. Views: 1 view. COMPARISON: CR XR CHEST 2V 02/20/2021 6:53 PM FINDINGS: Lungs: Lungs are hyperinflated and clear. There is a calcific density overlying the right upper quadrant which could potentially represent a calcified granuloma among other etiologies. Pleural spaces: No right pleural effusion; left costophrenic sulcus is obscured. Heart/Mediastinum: There may be mild cardiac enlargement with atherosclerotic calcification of thoracic aorta. Bones/joints: No significant skeletal findings. Intraperitoneal space: Surgical clips in right upper quadrant. Electronic device overlying left lateral hemithorax. IMPRESSION: No definite acute findings although the left lower lobe is obscured and if symptoms persist there could be consideration for follow-up PA and lateral chest x-ray.
--- NOTE | 2023-04-09 14:51 | CT_ITS ---
PROCEDURE INFORMATION: Exam: CTA Head With Contrast, Arteriography Exam date and time: 04/09/2023 3:44 PM Age: 73 years old Clinical indication: Stroke-like symptoms; Altered mental status/memory loss and speech disturbance; Additional info: Difficulty speaking TECHNIQUE: Imaging protocol: Computed tomographic angiography of the head with contrast. Exam focused on the arteries. 3D rendering (Not supervised by radiologist): MIP and/or 3D reconstructed images were created by the technologist. Radiation optimization: All CT scans at this facility use at least one of these dose optimization techniques: automated exposure control; mA and/or kV adjustment per patient size (includes targeted exams where dose is matched to clinical indication); or iterative reconstruction. Contrast material: ISOVUE 370; Contrast volume: 70 ml; Contrast route: INTRAVENOUS (IV); REPORTING DATA: Count of CT and Cardiac NM exams in prior 12 months: This patient has received 4 known CTs and 0 known cardiac nuclear medicine studies in the 12 months prior to the current study. COMPARISON: CT ANGIO HEAD 03/04/2023 12:19 PM FINDINGS: ANTERIOR CIRCULATION: Right internal carotid artery: Intracranial segment is patent with no significant stenosis. No aneurysm. Right middle cerebral artery: No occlusion or significant stenosis. No aneurysm. Right anterior cerebral artery: No occlusion or significant stenosis. No aneurysm. Left internal carotid artery: Intracranial segment is patent with no significant stenosis. No aneurysm. Left middle cerebral artery: No occlusion or significant stenosis. No aneurysm. Left anterior cerebral artery: No occlusion or significant stenosis. No aneurysm. POSTERIOR CIRCULATION: Right vertebral artery: No occlusion or significant stenosis. No aneurysm. Left vertebral artery: No occlusion or significant stenosis. No aneurysm. Basilar artery: No occlusion or significant stenosis. Basilar tip aneurysm is again noted projecting anteriorly and superiorly and rightward measuring approximately 5.3 mm AP by 5 mm in width by 5.9 mm cc. Right posterior cerebral artery: No occlusion or significant stenosis. No aneurysm. Left posterior cerebral artery: No occlusion or significant stenosis. No aneurysm. Brain: No definite mass, mass effect, or midline shift. Cerebral ventricles: No ventriculomegaly. Bones/joints: Unremarkable. No acute fracture. Soft tissues: Unremarkable. IMPRESSION: No large vessel stenosis or occlusion. Basilar tip aneurysm is again noted measuring proximally 5.3 x 5 x 5 mm.
--- NOTE | 2023-04-09 14:51 | CT_ITS ---
PROCEDURE INFORMATION: Exam: CT Head Without Contrast Exam date and time: 04/09/2023 3:42 PM Age: 73 years old Clinical indication: Stroke-like symptoms; Altered mental status/memory loss; Additional info: Difficulty speaking, aneurysm history TECHNIQUE: Imaging protocol: Computed tomography of the head without contrast. Radiation optimization: All CT scans at this facility use at least one of these dose optimization techniques: automated exposure control; mA and/or kV adjustment per patient size (includes targeted exams where dose is matched to clinical indication); or iterative reconstruction. Other technique: STROKE PROTOCOL was implemented. REPORTING DATA: Count of CT and Cardiac NM exams in prior 12 months: This patient has received 4 known CTs and 0 known cardiac nuclear medicine studies in the 12 months prior to the current study. COMPARISON: CT ANGIO HEAD 03/04/2023 12:19 PM FINDINGS: Brain: There is no acute cortical infarction, intracranial hemorrhage or mass. There is moderate diffuse heterogeneity of the white matter, most consistent with microangiopathy. Cerebral ventricles: No significant ventricular enlargement. Paranasal sinuses: Probable chronic fluid in left middle and posterior ethmoid air cells with remainder paranasal sinuses appearing clear. Mastoid air cells: No mastoid effusions. Bones/joints: Unremarkable. No acute fracture. Soft tissues: Unremarkable. Vasculature: Atherosclerosis. No aneurysm clips are apparent. Basilar tip appears prominent, series 1002, image 29. IMPRESSION: No acute cerebral infarction or intracranial hemorrhage. ASSESSMENT: ASPECTS ([facility] Stroke Program Early CT Score) is 10.
--- NOTE | 2023-04-09 14:51 | CT_ITS ---
PROCEDURE INFORMATION: Exam: CTA Neck With Contrast Exam date and time: 04/09/2023 3:44 PM Age: 73 years old Clinical indication: Stroke-like symptoms; Altered mental status/memory loss; Additional info: Difficulty speaking TECHNIQUE: Imaging protocol: Computed tomographic angiography of the neck with contrast. Exam focused on the cervical segments of the vasculature. 3D rendering (Not supervised by radiologist): MIP and/or 3D reconstructed images were created by the technologist. Radiation optimization: All CT scans at this facility use at least one of these dose optimization techniques: automated exposure control; mA and/or kV adjustment per patient size (includes targeted exams where dose is matched to clinical indication); or iterative reconstruction. Contrast material: ISOVUE 370; Contrast volume: 70 ml; Contrast route: INTRAVENOUS (IV); REPORTING DATA: Count of CT and Cardiac NM exams in prior 12 months: This patient has received 4 known CTs and 0 known cardiac nuclear medicine studies in the 12 months prior to the current study. COMPARISON: CT ANGIO NECK 03/04/2023 12:19 PM FINDINGS: Right common carotid artery: No stenosis. No dissection or occlusion. Right internal carotid artery: There is calcified atheromatous plaque in the right carotid bulb extending into the proximal right ICA without significant stenosis. There may be an ulcerated plaque in the right carotid bulb, series 4, images 224-232. Right external carotid artery: Stenosis at origin. Left common carotid artery: No stenosis. No dissection or occlusion. Left internal carotid artery: No stenosis of the extracranial segment. No dissection or occlusion. Left external carotid artery: No occlusion or stenosis of the origin. Right vertebral artery: No stenosis. No dissection or occlusion. Left vertebral artery: No stenosis. No dissection or occlusion. Soft tissues: No lesions of the lung apices. Bones/joints: Anterior cervical fusion hardware at C3-C4. IMPRESSION: No significant stenoses of the internal carotid arteries by NASCET criteria. REFERENCES: NASCET CRITERIA. The degree of stenosis in the cervical segment of the internal carotid artery is based on NASCET criteria. Normal is no stenosis. Mild is less than 50% stenosis. Moderate is 50-69% stenosis. Severe is 70% to 99% stenosis. Total occlusion is no detectable patent lumen.
--- NOTE | 2023-04-09 14:53 | ECG_ITS ---
APPROVED REPORT Exam: Resting ECG HR:57 bpm ECG Measurements Heart Rate 57 AXES OK 180 P 41 QRSd 83 QRS -20 QT 439 T 62 QTc 433 Conclusion SINUS BRADYCARDIA BORDERLINE ECG UNCONFIRMED REPORT Electronically signed by : Amadeo Cooper MD 04/10/2023 17:28:19
[2023-04-09 14:59] LABS: Basophils # 0.1 K/mm3 (0-0.2); Basophils % 0.7 % (0.1-2.0); Eosinophils # 0.1 K/mm3 (0.0-0.4); Eosinophils % 1.9 % (0.1-12.0); Hematocrit 37.7 % (37.0-47.0); Hemoglobin 12.7 g/dL (12.2-16.2); Lymphocytes # 1.4 K/mm3 (0.7-4.5); Lymphocytes % 20.3 % (10-50); Mean Corpuscular HGB Conc 33.6 g/dL (31.8-35.4); Mean Corpuscular Hemoglobin 31.1 pg (27.0-31.2); Mean Corpuscular Volume 92.6 fl (81-99); Mean Platelet Volume 7.5 fl (7.4-10.4); Monocytes # 0.4 K/mm3 (0.1-1.0); Platelet Count 382 K/mm3 (142-424); Red Blood Count 4.07 M/mm3 (4.20-5.40); Red Cell Distribution Width 16.2 % (11.5-17.5); White Blood Count 7.1 K/mm3 (4.8-10.8)
[2023-04-09 15:02] LABS: Microscopic, Urine URINE MICROSCOPIC (MICROSCOPIC)
[2023-04-09 15:04] LABS: Chloride 96 mmol/L (98-107)
[2023-04-09 15:05] LABS: Potassium 4.6 mmoL/L (3.5-5.1); Sodium 133 mmol/L (136-145)
[2023-04-09 15:06] LABS: Appearance,Urine CLEAR (Clear); Bilirubin,Urine Negative (Negative); Blood, Urine 1+ (Negative); Color,Urine YELLOW (Yellow); Glucose,Urine (UA) Negative (Negative); Ketones,Urine Negative (Negative); Leukocyte Esterase,Urine Negative (Negative); Nitrate,Urine Negative (Negative); Protein,Urine Negative (Negative); Specific Gravity, Urine 1.025 (1.005-1.030); Urobilinogen,Urine 0.2 EU/dl (0.2)
[2023-04-09 15:07] LABS: Alanine Aminotransferase 23 U/L (12-78); Alkaline Phosphatase 66 U/L (38-126); Anion Gap 13.6 mEq/L (5-15); Aspartate Amino Transferase 35 U/L (14-36); Bilirubin,Total 0.3 mg/dl (0.2-1.3); Blood Urea Nitrogen 21 mg/dl (7-17); Carbon Dioxide 28 mmol/L (22.0-30.0); Creatinine Clearance Estimated 36 mL/min (50-200); Estimated Glomerular Filt Rate 49 ml/min (>60); GFR (African American) 59 ML/MIN (>60)
[2023-04-09 15:08] LABS: Albumin Level 4.9 g/dl (3.5-5.0); Albumin/Globulin Ratio 1.2 (1.1-1.8); Glucose 96 mg/dl (74-100); Lipase 250 U/L (23-300); Total Protein,Serum 8.9 g/dl (6.3-8.2)
[2023-04-09 15:10] LABS: Activated Partial Thrombo Time 32.8 seconds (22.8-30.6)
[2023-04-09 15:13] LABS: Salicylate < 1.0 mg/dL (2.0-20.0)
--- NOTE | 2023-04-09 15:17 | HMH.EDGENADL ---
Discharge Plan Disposition Patient Disposition: Xfer Short-Term Hosp Chief Complaint: Neuro Symptoms/Deficit Prescriptions Prescriptions: No Action rosuvastatin 20 mg tablet 20 mg PO DAILY lorazepam 1 mg tablet 1 mg PO DAILY folic acid 1 mg tablet 1 mg PO DAILY methotrexate sodium 2.5 mg tablet 2.5 mg PO WEEKLY alendronate 70 mg tablet 70 mg PO WEEKLY telmisartan 20 MG tablet 20 mg PO DAILY levothyroxine 75 mcg Tablet 75 mcg PO DAILYDM metoprolol succinate 25 mg tablet extended release 24 hr 25 mg PO DAILY potassium citrate 10 MEQ tablet extended release 10 meq PO BID calcium carbonate 600 MG tablet 600 mg PO DAILY glucosamine sulfate 2KCl 1,000 MG tablet 1,000 mg PO DAILY Referrals Follow up/Referrals: Provider,Referral, [Primary Care Provider] - See instructions Clinical Impressions Clinical Impression: Expressive aphasia Discharge ED Provider: Jaden Alfaro General Adult HPI <Jaden Alfaro MD - Last Filed: 04/09/23 15:49> General Chief complaint: Neuro Symptoms/Deficit Stated complaint: stroke symptoms Time Seen by Provider: 04/09/23 14:49 Mode of Arrival: Ambulatory Source of Information: Patient and Relative Limitations: No Limitations Description of Symptoms (Recalled from ER Triage Doc. by RN): Per spouse approx 1 hour ago the patient began to have a hard time finding her words, became confused, and began mumbling. History of Present Illness HPI narrative: 73-year-old female with history of known intra cranial aneurysm presenting with difficulty speaking. This happened about an hour prior to arrival. Patient's states that patient was just standing there, rummaging through her pocket when she had difficulty finding words and was slurring her speech. No unilateral deficits or facial droop was noted. Patient was brought to the emergency department by family. On arrival, asymptomatic. Patient without complaints. Related Data Home Medications Medication Instructions Recorded Confirmed telmisartan 20 mg tablet 20 mg PO DAILY High Blood Pressure 09/22/17 03/04/23 potassium citrate 10 mEq (1,080 10 meq PO BID Supplement 12/21/17 03/04/23 mg) tablet,extended release calcium carbonate 600 mg calcium 600 mg PO DAILY Supplement 10/22/19 03/04/23 (1,500 mg) tablet glucosamine sulfate 2KCl 1,000 mg 1,000 mg PO DAILY Supplement 10/22/19 03/04/23 tablet rosuvastatin 20 mg tablet 20 mg PO DAILY Cholesterol 05/27/21 03/04/23 lorazepam 1 mg tablet 1 mg PO DAILY Anxiety 09/03/21 03/04/23 folic acid 1 mg tablet 1 mg PO DAILY Supplement 12/30/21 03/04/23 alendronate 70 mg tablet 70 mg PO WEEKLY Bone Loss 08/02/22 03/04/23 methotrexate sodium 2.5 mg tablet 2.5 mg PO WEEKLY Arthritis 08/02/22 03/04/23 levothyroxine 75 mcg tablet 75 mcg PO DAILYDM THYROID 03/04/23 03/04/23 metoprolol succinate 25 mg 25 mg PO DAILY High Blood Pressure 03/04/23 03/04/23 tablet,extended release 24 hr Allergies Allergy/AdvReac Type Severity Reaction Status Date / Time Sulfa (Sulfonamide Allergy Verified 01/31/23 11:16 Antibiotics) [facility] <Jaden Alfaro MD - Last Filed: 04/09/23 15:49> [facility] Disclaimer: The information contained in this section may have been updated after the patient was seen, as this information can be updated by other users. Medical History Abnormal EKG CAD (coronary artery disease) Encounter for pre-operative cardiovascular clearance Social History Smoking Status: Never smoker alcohol intake: never counseling provided: none substance use type: denies use current occupational status: retired Travel in the last 8 weeks: None household members: family housing: house caffeine: Yes <Jaden Alfaro MD - Last Filed: 04/09/23 15:49> ROS Obtained: Yes All systems reviewed & no additional
[2023-04-09 15:19] LABS: RBC,Urine Occasional #/hpf (0-3); WBC,Urine Occasional #/hpf (0-3)
[2023-04-09 15:20] LABS: Troponin I < 0.01 ng/ml (0.00-0.034)
[2023-04-09 15:22] LABS: INR 1.02 (0.9-1.1)
--- NOTE | 2023-04-09 15:30 | PC.NURSE ---
At BS to recheck pt FSBS: 110. Upon asking pt where she was she stated, What do you mean? pt was unable to verbalize the city, year, and was unable to name her daughter and sister who are at BS. Pt was able to verbalize that the visitors are her daughter and her sister. Dr. Alfaro, Dr. Saab and RN notified at this time.
--- NOTE | 2023-04-09 15:32 | PC.NURSE ---
notified rad staff pt needed to go to CT, pt now not answering questions appropriately DR. Alfaro notified
--- NOTE | 2023-04-09 15:38 | PC.NURSE ---
pt to CT via stretcher
[2023-04-09 15:44] LABS: POC Glucose,Bedside 110 (70-110)
--- NOTE | 2023-04-09 15:52 | PC.NURSE ---
PT returned from RAD
--- NOTE | 2023-04-09 16:05 | PC.NURSE ---
Dr. Saab spoke [facility] r/t Ct brain, angios were not read yet at time of phone call
--- NOTE | 2023-04-09 16:17 | PC.NURSE ---
contacted rad to request disc of images
--- NOTE | 2023-04-09 16:18 | PC.NURSE ---
JOANIE PÉREZ speaking with TONIA again at this time
--- NOTE | 2023-04-09 16:25 | PC.NURSE ---
Dr Saab speaking with residential program coordinator at [facility]
--- NOTE | 2023-04-09 16:39 | PC.NURSE ---
facesheet faxed and [facility] advised they were cleaning a room and would call when it was available for pt report.
--- NOTE | 2023-04-09 17:13 | PC.NURSE ---
Pt ambulatory to bathroom with no assistance. No other needs voiced at this time. Call light within reach.
--- NOTE | 2023-04-09 17:48 | PC.NURSE ---
[facility] called with number to call report - [phone] requests for us to call [phone] when EMS leaves here with pt and to have EMS call same number when they have an ETA of 10 minutes to their facility. States to have EMS take pt to [place] admit/DC ambulance bay.
--- NOTE | 2023-04-09 17:52 | PC.NURSE ---
pt and family who is at BS updated on bed assignment at [facility], we will be waiting on EMS transport, possibly 2-3 hours r/t another emergent run must go first. Pt verbalized understanding.
--- NOTE | 2023-04-09 18:36 | PC.NURSE ---
per [facility] pt will have to wait on transfer until their other truck in back in town unless pt status changes. Dr. Saab aware, updated pt and family
--- NOTE | 2023-04-09 19:00 | PC.NURSE ---
Patient passed bedside swallow screen
--- NOTE | 2023-04-09 19:01 | PC.NURSE ---
Pt provided with sandwich, chips, drink. No other needs or complaints voiced. Visitors remain at BS. Call light within reach.
--- NOTE | 2023-04-09 20:23 | PC.NURSE ---
called report to Leonela AUGUSTINE at [facility] on 3F, rm number [phone]. all questions answered
--- NOTE | 2023-04-09 20:38 | PC.NURSE ---
[facility] called EMS for transport at this time.
== END 2023-04-09 20:57 | disposition short-term general hospital (02) ==
PROVIDERS: Emergency Medicine; Emergency Provider Emergency Medicine
DX: I63.9 Cerebral infarction, unspecified (principal); R47.01 Aphasia; E87.1 Hypo-osmolality and hyponatremia; R00.1 Bradycardia, unspecified; I72.5 Aneurysm of other precerebral arteries; I25.10 Atherosclerotic heart disease of native coronary artery without angina pectoris; I11.9 Hypertensive heart disease without heart failure
CPT/HCPCS: 70450; 70496; 70498; 71045; 80053; 80329; 81001; 82962; 83690; 84484; 85025; 85610; 85730; 93005; 99291; Q9967

== ENCOUNTER 2023-04-11 11:56 | Emergency (ER) | payer MEDICARE, OTHER, SELFPAY ==
[2023-04-11 11:57] VITALS: BP 142/79; PULSE 85; RESP 15; TEMP 36.4; O2SAT 98; BMI 20.9
--- NOTE | 2023-04-11 12:24 | CT_ITS ---
FINAL REPORT CLINICAL HISTORY: fall, h/o brain aneurysm, on ASA COMPARISON: None FINDINGS: Axial CT images of the cervical spine were obtained without contrast. Sagittal and coronal reformatted images were also obtained. This study was performed with techniques to keep radiation doses as low as reasonably achievable (ALARA). Individualized dose reduction techniques using automated exposure control or adjustment of mA and/or kV according to the patient's size were employed. There is no evidence of fracture or dislocation. The bony alignment is normal. There is mild to moderate degenerative change present with multilevel osteophytes noted. The patient has undergone prior C3-4 anterior cervical fusion. There is no evidence of canal stenosis. No paraspinous soft tissue abnormality is seen. Limited images of the upper thorax are unremarkable. IMPRESSION: No fracture or acute bony abnormality identified. Prior C3-4 anterior cervical fusion. Mild to moderate degenerative change with multilevel osteophytes. Reviewed, Interpreted and Dictated by Carson Armstrong III, MD Transcribed by Julianna Mathis Authenticated and [facility]
--- NOTE | 2023-04-11 12:24 | XR_ITS ---
FINAL REPORT CLINICAL HISTORY: fall, pain COMPARISON: None FINDINGS: LEFT HIP: Two views of the left hip demonstrate no acute fracture or dislocation. Moderate to severe degenerative change is present. The visualized bony structures are well aligned. No soft tissue abnormality is seen. IMPRESSION: No acute bony abnormality. Moderate to severe degenerative changes present in the left hip. Reviewed, Interpreted and Dictated by Carson Armstrong III, MD Transcribed by Julianna Mathis Authenticated and . [facility]
--- NOTE | 2023-04-11 12:24 | CT_ITS ---
FINAL REPORT CLINICAL HISTORY: fall, h/o brain aneurysm, on ASA COMPARISON: 04/09/2023 FINDINGS: Axial images of the head were obtained without contrast. Coronal and sagittal reformatted images were also obtained.This study was performed with techniques to keep radiation doses as low as reasonably achievable (ALARA). Individualized dose reduction techniques using automated exposure control or adjustment of mA and/or kV according to the patient's size were employed. There is no evidence of intracranial hemorrhage or mass. The ventricular size is within normal limits. There is no evidence of shift of the midline structures. No abnormal extra axial fluid collection is identified. No skull abnormality is seen on the bone window images. There is a small osteoma in the right frontal sinus. IMPRESSION: No acute intracranial abnormality. Reviewed, Interpreted and Dictated by Carson Armstrong III, MD Transcribed by Julianna Mathis Authenticated and [facility]
--- NOTE | 2023-04-11 12:24 | CT_ITS ---
FINAL REPORT TECHNIQUE: Thin section axial CT with IV contrast supplemented with multiplanar reconstruction under CT angiogram protocol. 3-D reconstructions were performed. This study was performed with techniques to keep radiation doses as low as reasonably achievable (ALARA). Individualized dose reduction techniques using automated exposure control or adjustment of mA and/or kV according to the patient''s size were employed. CLINICAL HISTORY: fall, h/o brain aneurysm, on ASA COMPARISON: None FINDINGS: The distal vertebral, basilar and distal internal carotid arteries have an unremarkable appearance. 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 It measures 6 mm in greatest diameter. Major intracranial vessels are patent without significant stenosis. IMPRESSION: No significant new intracranial vascular abnormality identified. 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 Reviewed, Interpreted and Dictated by Carson Armstrong III, MD Transcribed by Julianna Mathis Authenticated and [facility]
--- NOTE | 2023-04-11 12:24 | CT_ITS ---
FINAL REPORT TECHNIQUE: Thin-section axial CT with IV contrast supplemented with multi planar reconstruction under CT angiogram protocol was performed of the neck. This study was performed technique to keep radiation doses as low as reasonably achievable, (ALARA). NASCET criteria was utilized during interpretation. CLINICAL HISTORY: fall, h/o brain aneurysm, on ASA COMPARISON: None FINDINGS: Aortic arch: Arch shows no significant narrowing. Great vessel origins are widely patent. Right carotid: There is calcified plaque present at the carotid artery bifurcation without evidence of significant stenosis. Left carotid: There is calcified plaque present at the carotid artery bifurcation without evidence of significant stenosis. Vertebrals: Left vertebral artery is dominant. No significant stenosis is present. IMPRESSION: No evidence of significant stenosis or major branch occlusion. Reviewed, Interpreted and Dictated by Carson Armstrong III, MD Transcribed by Julianna Mathis Authenticated and [facility]
--- NOTE | 2023-04-11 12:45 | PC.NURSE ---
update family about plan for pt,
[2023-04-11 12:50] LABS: Chloride 96 mmol/L (98-107)
[2023-04-11 12:51] LABS: Potassium 3.7 mmoL/L (3.5-5.1); Sodium 129 mmol/L (136-145)
[2023-04-11 12:53] LABS: Basophils # 0.1 K/mm3 (0-0.2); Basophils % 0.7 % (0.1-2.0); Eosinophils # 0.1 K/mm3 (0.0-0.4); Eosinophils % 1.4 % (0.1-12.0); Hematocrit 34.8 % (37.0-47.0); Hemoglobin 11.3 g/dL (12.2-16.2); Lymphocytes % 12.3 % (10-50); Mean Corpuscular HGB Conc 32.6 g/dL (31.8-35.4); Mean Corpuscular Hemoglobin 30.1 pg (27.0-31.2); Mean Corpuscular Volume 92.1 fl (81-99); Mean Platelet Volume 7.4 fl (7.4-10.4); Monocytes # 0.5 K/mm3 (0.1-1.0); Monocytes % 5.4 % (1.7-9.3); Neutrophils # 6.7 K/mm3 (1.8-7.8); Neutrophils % 80.3 % (37.0-80.0); Platelet Count 366 K/mm3 (142-424); Red Blood Count 3.78 M/mm3 (4.20-5.40); Red Cell Distribution Width 16.2 % (11.5-17.5); White Blood Count 8.3 K/mm3 (4.8-10.8)
[2023-04-11 12:54] LABS: Anion Gap 10.7 mEq/L (5-15); Blood Urea Nitrogen 21 mg/dl (7-17); Carbon Dioxide 26 mmol/L (22.0-30.0); Creatinine Clearance Estimated 48 mL/min (50-200); Estimated Glomerular Filt Rate 49 ml/min (>60); GFR (African American) 59 ML/MIN (>60); Glucose 111 mg/dl (74-100)
--- NOTE | 2023-04-11 13:06 | HMH.EDGENADL ---
Discharge Plan Disposition Patient Disposition: Home, Self-Care Condition: Good Prescriptions Prescriptions: No Action rosuvastatin 20 mg tablet 20 mg PO DAILY lorazepam 1 mg tablet 1 mg PO DAILY folic acid 1 mg tablet 1 mg PO DAILY methotrexate sodium 2.5 mg tablet 2.5 mg PO WEEKLY alendronate 70 mg tablet 70 mg PO WEEKLY telmisartan 20 MG tablet 20 mg PO DAILY levothyroxine 75 mcg Tablet 75 mcg PO DAILYDM metoprolol succinate 25 mg tablet extended release 24 hr 25 mg PO DAILY potassium citrate 10 MEQ tablet extended release 10 meq PO BID calcium carbonate 600 MG tablet 600 mg PO DAILY glucosamine sulfate 2KCl 1,000 MG tablet 1,000 mg PO DAILY Referrals Follow up/Referrals: Carlton Wyatt MD [Primary Care Provider] - See instructions Activity Restrictions/Add. Instructions Additional Instructions/Restrictions: You were evaluated in the emergency department today. Please follow-up with your primary care provider. Return to the emergency department for any new or worsening symptoms. Clinical Impressions Clinical Impression: Fall, CHI (closed head injury) Instructions Patient Instructions: Closed Head Injury Discharge ED Provider: Paulina Marshall General Adult HPI General Chief complaint: Wound/Laceration Stated complaint: AO AT MIDNIGHT SLEEP WALKING HIT HEAD Time Seen by Provider: 04/11/23 12:01 Mode of Arrival: Ambulatory Source of Information: Patient Limitations: No Limitations History of Present Illness HPI narrative: This patient is a 73-year-old female with a history of intracranial aneurysm, recent TIA with admission to [facility], hypertension, hyperlipidemia, and CAD on aspirin presenting to the emergency department for evaluation with concern for head injury. Patient reports that last night, she believes that she was dreaming when her noted her getting out of bed in her sleep. She states that her told her that she fell backwards and hit her head. She does not remember what happened, she states that she was sleepwalking. She states that since waking up today, she has had some mild pain in the back of her head. Given this, she decided to come in for evaluation with her known aneurysm to make sure that everything was okay. No other concerns noted, such as vision changes, numbness, tingling, chest pain, abdominal pain, or other concerns. She does note that she hit her left hip, but she has been ambulatory without issues denies any significant pain associated with this. Related Data Home Medications Medication Instructions Recorded Confirmed telmisartan 20 mg tablet 20 mg PO DAILY High Blood Pressure 09/22/17 03/04/23 potassium citrate 10 mEq (1,080 10 meq PO BID Supplement 12/21/17 03/04/23 mg) tablet,extended release calcium carbonate 600 mg calcium 600 mg PO DAILY Supplement 10/22/19 03/04/23 (1,500 mg) tablet glucosamine sulfate 2KCl 1,000 mg 1,000 mg PO DAILY Supplement 10/22/19 03/04/23 tablet rosuvastatin 20 mg tablet 20 mg PO DAILY Cholesterol 05/27/21 03/04/23 lorazepam 1 mg tablet 1 mg PO DAILY Anxiety 09/03/21 03/04/23 folic acid 1 mg tablet 1 mg PO DAILY Supplement 12/30/21 03/04/23 alendronate 70 mg tablet 70 mg PO WEEKLY Bone Loss 08/02/22 03/04/23 methotrexate sodium 2.5 mg tablet 2.5 mg PO WEEKLY Arthritis 08/02/22 03/04/23 levothyroxine 75 mcg tablet 75 mcg PO DAILYDM THYROID 03/04/23 03/04/23 metoprolol succinate 25 mg 25 mg PO DAILY High Blood Pressure 03/04/23 03/04/23 tablet,extended release 24 hr Allergies Allergy/AdvReac Type Severity Reaction Status Date / Time Sulfa (Sulfonamide Allergy Verified 01/31/23 11:16 Antibiotics) [facility] Disclaimer: The information contained in this section may have been updated after the patient was seen, as this information can be updated by other users. Medical History (Reviewed 04/11/23 @ 13:10 by Paulina Marshall
--- NOTE | 2023-04-11 14:16 | PC.NURSE ---
radiology reading scan
[2023-04-11 14:34] VITALS: BP 138/69; PULSE 61; RESP 18; O2SAT 100
--- NOTE | 2023-04-11 14:34 | PC.NURSE ---
water given to MD robert okayed
--- NOTE | 2023-04-11 14:34 | PC.NURSE ---
updated family about plan of care for pt
[2023-04-11 15:15] VITALS: BP 127/73; PULSE 62; RESP 18; TEMP 36.5; O2SAT 99
== END 2023-04-11 15:15 | disposition home or self-care (01) ==
PROVIDERS: Emergency Provider Emergency Medicine; PCP Internal Medicine
DX: S09.8XXA Other specified injuries of head, initial encounter (principal); E87.1 Hypo-osmolality and hyponatremia; I72.5 Aneurysm of other precerebral arteries; I25.10 Atherosclerotic heart disease of native coronary artery without angina pectoris; I11.9 Hypertensive heart disease without heart failure; E78.5 Hyperlipidemia, unspecified; W19.XXXA Unspecified fall, initial encounter
CPT/HCPCS: 70450; 70496; 70498; 72125; 73502; 80048; 85025; 99285; Q9967

== ENCOUNTER 2023-06-02 11:28 | Outpatient (CLI) | payer MEDICARE, OTHER, SELFPAY ==
[2023-06-02 11:55] LABS: Basophils # 0.1 K/mm3 (0-0.2); Basophils % 0.6 % (0.1-2.0); Eosinophils # 0.1 K/mm3 (0.0-0.4); Eosinophils % 1.7 % (0.1-12.0); Hematocrit 34.6 % (37.0-47.0); Hemoglobin 11.6 g/dL (12.2-16.2); Lymphocytes # 1.2 K/mm3 (0.7-4.5); Lymphocytes % 14.2 % (10-50); Mean Corpuscular HGB Conc 33.5 g/dL (31.8-35.4); Mean Corpuscular Hemoglobin 31.7 pg (27.0-31.2); Mean Corpuscular Volume 94.7 fl (81-99); Mean Platelet Volume 8.5 fl (7.4-10.4); Monocytes # 0.4 K/mm3 (0.1-1.0); Monocytes % 5.2 % (1.7-9.3); Neutrophils # 6.4 K/mm3 (1.8-7.8); Neutrophils % 78.3 % (37.0-80.0); Platelet Count 277 K/mm3 (142-424); Red Blood Count 3.65 M/mm3 (4.20-5.40); Red Cell Distribution Width 17.8 % (11.5-17.5); White Blood Count 8.2 K/mm3 (4.8-10.8)
[2023-06-02 12:42] LABS: Alanine Aminotransferase 33 U/L (12-78); Albumin Level 4.5 g/dl (3.5-5.0); Albumin/Globulin Ratio 1.6 (1.1-1.8); Alkaline Phosphatase 66 U/L (38-126); Aspartate Amino Transferase 41 U/L (14-36); Bilirubin,Total 0.4 mg/dl (0.2-1.3); Blood Urea Nitrogen 20 mg/dl (7-17); Calcium 9.1 mg/dl (8.4-10.2); Carbon Dioxide 28 mmol/L (22.0-30.0); Chloride 98 mmol/L (98-107); Estimated Glomerular Filt Rate 44 ml/min (>60); GFR (African American) 53 ML/MIN (>60); Globulin 2.8 g/dL (1.3-3.2); Glucose 83 mg/dl (74-100); Sodium 133 mmol/L (136-145); Total Protein,Serum 7.3 g/dl (6.3-8.2)
[2023-06-02 13:25] LABS: Erythrocyte Sedimentation Rate 71 mm/hr (0-30)
== END 2023-06-02 23:59 ==
LOC: LAB.DROPOF 11:29
PROVIDERS: PCP Internal Medicine; Visit Provider Internal Medicine
DX: E03.9 Hypothyroidism, unspecified (principal); I10 Essential (primary) hypertension; I25.10 Atherosclerotic heart disease of native coronary artery without angina pectoris; N18.30 Chronic kidney disease, stage 3 unspecified; G45.8 Other transient cerebral ischemic attacks and related syndromes; M35.3 Polymyalgia rheumatica; M05.8 Other rheumatoid arthritis with rheumatoid factor
CPT/HCPCS: 80053; 84443; 85025; 85651; 86140

== ENCOUNTER 2023-08-11 12:06 | Outpatient (CLI) | payer MEDICARE, OTHER, SELFPAY ==
[2023-08-11 13:17] LABS: Basophils # 0.1 K/mm3 (0-0.2); Basophils % 0.8 % (0.1-2.0); Eosinophils # 0.1 K/mm3 (0.0-0.4); Eosinophils % 0.5 % (0.1-12.0); Hematocrit 35.1 % (37.0-47.0); Hemoglobin 11.3 g/dL (12.2-16.2); Lymphocytes # 1.1 K/mm3 (0.7-4.5); Lymphocytes % 8.9 % (10-50); Mean Corpuscular HGB Conc 32.1 g/dL (31.8-35.4); Mean Corpuscular Hemoglobin 33.7 pg (27.0-31.2); Mean Corpuscular Volume 104.9 fl (81-99); Mean Platelet Volume 8.4 fl (7.4-10.4); Monocytes # 0.5 K/mm3 (0.1-1.0); Monocytes % 4.2 % (1.7-9.3); Neutrophils # 10.8 K/mm3 (1.8-7.8); Neutrophils % 85.7 % (37.0-80.0); Platelet Count 304 K/mm3 (142-424); Red Blood Count 3.34 M/mm3 (4.20-5.40); Red Cell Distribution Width 16.9 % (11.5-17.5); White Blood Count 12.6 K/mm3 (4.8-10.8)
[2023-08-11 13:23] LABS: MANUAL DIFFERENTIAL MANUAL DIFFERENTIAL (MANUAL DIFF)
[2023-08-11 13:32] LABS: Chol/HDL Ratio 3.5 (1-3.5); Cholesterol 233 mg/dl (140-200); HDL Cholesterol 66 mg/dl (40-60); Triglycerides 136 mg/dl (30-150); VLDL Cholesterol 27 mg/dL (0-40)
[2023-08-11 13:43] LABS: Direct LDL Cholesterol 100.61 mg/dL (100-129)
[2023-08-11 14:04] LABS: Thyroid Stimulating Hormone 0.73 uIU/mL (0.465-4.68)
[2023-08-11 14:12] LABS: Eosinophils % 1 % (0-3); Lymphocytes % 16 % (10-50); Monocytes % 5 % (2-9); Neutrophils % 73 % (42-76); Total Cells Counted 100
[2023-08-11 14:48] LABS: Anisocytosis 1+; Macrocytosis 1+; Platelet Estimate Normal
== END 2023-08-11 23:59 ==
LOC: LAB.DROPOF 12:08
PROVIDERS: PCP Internal Medicine; Visit Provider Internal Medicine
DX: I25.10 Atherosclerotic heart disease of native coronary artery without angina pectoris (principal); I10 Essential (primary) hypertension; E03.9 Hypothyroidism, unspecified; E78.5 Hyperlipidemia, unspecified; D64.9 Anemia, unspecified
CPT/HCPCS: 80061; 84443; 85007; 85025

== ENCOUNTER 2023-09-18 08:49 | Outpatient (CLI) | payer MEDICARE, OTHER, SELFPAY ==
[2023-09-18 09:22] LABS: Basophils # 0.1 K/mm3 (0-0.2); Basophils % 1.2 % (0.1-2.0); Eosinophils # 0.2 K/mm3 (0.0-0.4); Eosinophils % 2.9 % (0.1-12.0); Hematocrit 36.6 % (37.0-47.0); Hemoglobin 11.9 g/dL (12.2-16.2); Lymphocytes # 1.6 K/mm3 (0.7-4.5); Lymphocytes % 22.5 % (10-50); Mean Corpuscular HGB Conc 32.6 g/dL (31.8-35.4); Mean Corpuscular Hemoglobin 34.3 pg (27.0-31.2); Mean Corpuscular Volume 105.2 fl (81-99); Mean Platelet Volume 7.6 fl (7.4-10.4); Monocytes # 0.5 K/mm3 (0.1-1.0); Monocytes % 6.6 % (1.7-9.3); Neutrophils # 4.7 K/mm3 (1.8-7.8); Neutrophils % 66.7 % (37.0-80.0); Platelet Count 254 K/mm3 (142-424); Red Blood Count 3.48 M/mm3 (4.20-5.40); Red Cell Distribution Width 15.4 % (11.5-17.5)
[2023-09-18 09:31] LABS: Alanine Aminotransferase 27 U/L (12-78); Albumin Level 4.2 g/dl (3.5-5.0); Albumin/Globulin Ratio 1.8 (1.1-1.8); Alkaline Phosphatase 38 U/L (38-126); Aspartate Amino Transferase 34 U/L (14-36); Bilirubin,Total 0.5 mg/dl (0.2-1.3); Blood Urea Nitrogen 22 mg/dl (7-17); Calcium 9.6 mg/dl (8.4-10.2); Carbon Dioxide 30 mmol/L (22.0-30.0); Chloride 104 mmol/L (98-107); Estimated Glomerular Filt Rate 49 ml/min (>60); GFR (African American) 59 ML/MIN (>60); Globulin 2.3 g/dL (1.3-3.2); Glucose 87 mg/dl (74-100); Sodium 137 mmol/L (136-145); Total Protein,Serum 6.5 g/dl (6.3-8.2)
[2023-09-18 10:12] LABS: Erythrocyte Sedimentation Rate 32 mm/hr (0-30)
== END 2023-09-18 23:59 | disposition home or self-care (01) ==
PROVIDERS: PCP Internal Medicine; Visit Provider Nurse Practitioner Family
DX: D64.9 Anemia, unspecified (principal); M05.8 Other rheumatoid arthritis with rheumatoid factor; M35.3 Polymyalgia rheumatica; M85.80 Other specified disorders of bone density and structure, unspecified site; R53.83 Other fatigue
CPT/HCPCS: 36415; 80053; 85025; 85651; 86140

== ENCOUNTER 2024-01-16 09:03 | Outpatient (CLI) | payer MEDICARE, OTHER, SELFPAY ==
--- NOTE | 2024-01-16 09:11 | XR_ITS ---
FINAL REPORT CLINICAL HISTORY: lt hip pain COMPARISON: None FINDINGS: LEFT HIP: Two views of the left hip with an AP view of the pelvis demonstrate no acute fracture or dislocation. There is advanced hip joint space narrowing superiorly with subchondral sclerosis and osteophyte formation at the lateral margin of the femoral head. Right hip prosthesis is noted. No soft tissue abnormality is seen. IMPRESSION: Advanced degenerative changes without acute bony abnormality. Reviewed, Interpreted and Dictated by Sohail Joyner MD Transcribed by Maribel Jarvis Authenticated and [facility]
== END 2024-01-16 23:59 | disposition home or self-care (01) ==
LOC: RAD 09:06
PROVIDERS: PCP Internal Medicine; Visit Provider Physician Assistant
DX: M25.552 Pain in left hip (principal)
CPT/HCPCS: 73502

== ENCOUNTER 2024-01-26 12:09 | Outpatient (CLI) | payer MEDICARE, OTHER, SELFPAY ==
[2024-01-26 12:52] LABS: Basophils # 0.1 K/mm3 (0-0.2); Basophils % 0.8 % (0.1-2.0); Eosinophils # 0.2 K/mm3 (0.0-0.4); Eosinophils % 3.1 % (0.1-12.0); Hematocrit 34.4 % (37.0-47.0); Hemoglobin 11.2 g/dL (12.2-16.2); Lymphocytes # 0.8 K/mm3 (0.7-4.5); Lymphocytes % 11.2 % (10-50); Mean Corpuscular HGB Conc 32.5 g/dL (31.8-35.4); Mean Corpuscular Hemoglobin 33.8 pg (27.0-31.2); Mean Corpuscular Volume 103.9 fl (81-99); Mean Platelet Volume 7.5 fl (7.4-10.4); Monocytes # 0.6 K/mm3 (0.1-1.0); Monocytes % 7.7 % (1.7-9.3); Neutrophils # 5.7 K/mm3 (1.8-7.8); Neutrophils % 77.2 % (37.0-80.0); Platelet Count 214 K/mm3 (142-424); Red Blood Count 3.31 M/mm3 (4.20-5.40); Red Cell Distribution Width 15.2 % (11.5-17.5); White Blood Count 7.4 K/mm3 (4.8-10.8)
[2024-01-26 13:26] LABS: Alanine Aminotransferase 40 U/L (12-78); Albumin Level 3.5 g/dl (3.5-5.0); Albumin/Globulin Ratio 1.4 (1.1-1.8); Alkaline Phosphatase 44 U/L (38-126); Anion Gap 7.2 mEq/L (5-15); Aspartate Amino Transferase 35 U/L (14-36); Bilirubin,Total 0.4 mg/dl (0.2-1.3); Blood Urea Nitrogen 22 mg/dl (7-17); Calcium 8.9 mg/dl (8.4-10.2); Carbon Dioxide 28 mmol/L (22.0-30.0); Chloride 101 mmol/L (98-107); Estimated Glomerular Filt Rate 49 ml/min (>60); GFR (African American) 59 ML/MIN (>60); Globulin 2.5 g/dL (1.3-3.2); Glucose 82 mg/dl (74-100); Potassium 4.2 mmoL/L (3.5-5.1); Sodium 132 mmol/L (136-145)
[2024-01-26 13:29] LABS: Erythrocyte Sedimentation Rate 100 mm/hr (0-30)
[2024-01-26 13:32] LABS: C-Reactive Protein 28.5 mg/L (0-4)
[2024-01-27 10:12] LABS: RA Latex Turbid. <10.0 IU/mL (<14.0)
[2024-02-06 10:05] LABS: Miscellaneous Test SCANNED IMAGE
== END 2024-01-26 23:59 | disposition home or self-care (01) ==
LOC: LAB 12:12
PROVIDERS: PCP Internal Medicine; Visit Provider Internal Medicine
DX: M35.3 Polymyalgia rheumatica (principal); M06.09 Rheumatoid arthritis without rheumatoid factor, multiple sites; Z79.899 Other long term (current) drug therapy
CPT/HCPCS: 36415; 80053; 85025; 85651; 86140; 86431

== ENCOUNTER 2024-02-02 10:40 | Emergency (ER) | payer MEDICARE, OTHER, SELFPAY ==
[2024-02-02 11:05] VITALS: BP 169/85; PULSE 57; RESP 20; TEMP 36.9; O2SAT 96; BMI 20.8
[2024-02-02 11:17] LABS: Apearance,Urine Clear (Clear); Color,Urine Yellow (Yellow); PH,Urine 6.5 (5.0-8.5); Protein,Urine Negative (Negative); Specific Gravity, Urine 1.015 (1.005-1.030)
[2024-02-02 11:18] LABS: Bilirubin,Urine Negative (Negative); Blood, Urine 1+ (Negative); Glucose,Urine (UA) Negative (Negative); Ketones,Urine Negative (Negative); UTC Leukocyte Esterase,Urine Negative (Negative); UTC Nitrate,Urine Negative (Negative); Urobilinogen,Urine 0.2 EU/dl (0.2)
--- NOTE | 2024-02-02 11:39 | EXP.UTC ---
Discharge Plan Disposition Patient Disposition: Home, Self-Care Condition: Good Prescriptions Prescriptions: New miconazole nitrate [Monistat 3] 4 % (200 mg)- 2 % (9 gram) comb pack,prefill appl, cream 1 appful vaginal HS 3 Days Qty: 24 0RF Rx Instructions: as vaginal cream No Action aspirin [Adult Low Dose Aspirin] 81 mg tablet,delayed release (DR/EC) 81 mg PO DAILY lorazepam 1 mg tablet 1 mg PO DAILY folic acid 1 mg tablet 1 mg PO DAILY methotrexate sodium 2.5 mg tablet 2.5 mg PO WEEKLY alendronate 70 mg tablet 70 mg PO WEEKLY metoprolol succinate 25 mg tablet extended release 24 hr 12.5 mg PO DAILY Qty: 90 3RF valacyclovir [Valtrex] 500 mg tablet 500 mg PO TID Qty: 30 2RF levothyroxine 100 mcg capsule 100 mcg PO DAILY Qty: 90 3RF potassium citrate 10 mEq (1,080 mg) tablet extended release 10 meq PO DAILY Qty: 90 1RF telmisartan 40 mg tablet 40 mg PO DAILY Qty: 90 1RF rosuvastatin 20 mg tablet 20 mg PO DAILY Qty: 90 1RF tramadol 50 mg tablet 50 mg PO TID PRN (Reason: pain) Qty: 90 0RF calcium carbonate 600 MG tablet 600 mg PO DAILY glucosamine sulfate 2KCl 1,000 MG tablet 1,000 mg PO DAILY Referrals Follow up/Referrals: Carlton Wyatt MD [Primary Care Provider] - See instructions Activity Restrictions/Add. Instructions Additional Instructions/Restrictions: Use medication as prescribed FOllow up with your Family Doctor if no improvement or any worsening of symptoms Straight to ER if any life threatening symptoms Clinical Impressions Clinical Impression: Vaginal yeast infection Instructions Patient Instructions: DI for Vaginal Yeast Infection, Vaginal Yeast Infection Print Language Print Language: Tristanian Discharge ED Provider: Callie Zheng [facility] [place] General Stated complaint: stomach pain and rash in bottom area Mode of Arrival: Ambulatory Source of Information: Patient Limitations: No Limitations Time Seen by Provider: 02/02/24 11:20 Description of Symptoms (Recalled from Triage Doc. by RN): PATIENT C/O RASH TO VAGINAL AREA AND URINARY FREQUENCY X 2 DAYS HEENT Symptoms (Recalled from RN notes): No Resp Symptoms (Recalled from RN notes): No Skin Symptoms (Recalled from RN notes): No MS Symptoms (Recalled from RN notes): No Functional Status (Recalled from RN notes): WNL History of Present Illness Provider Complaint: Patient states that she has been having redness and burning to her vaginal area and feeling like she is urinating frequently States that she took a diflucan a few days ago and it didnt help much so today she came in to get checked worried she may have a UTI or yeast infection Related Data Home Medications ?Medication ?Instructions ?Recorded ?Confirmed calcium carbonate 600 mg PO DAILY Supplement 10/22/19 02/01/24 glucosamine sulfate 2KCl 1,000 mg 1,000 mg PO DAILY Supplement 10/22/19 02/01/24 tablet lorazepam 1 mg tablet 1 mg PO DAILY Anxiety 09/03/21 02/01/24 folic acid 1 mg tablet 1 mg PO DAILY Supplement 12/30/21 02/01/24 alendronate 70 mg tablet 70 mg PO WEEKLY Bone Loss 08/02/22 02/01/24 methotrexate sodium 2.5 mg tablet 2.5 mg PO WEEKLY Arthritis 08/02/22 02/01/24 aspirin 81 mg tablet,delayed 81 mg PO DAILY 08/01/23 02/01/24 release (Adult Low Dose Aspirin) Previous Rx's ?Medication ?Instructions ?Recorded levothyroxine 100 mcg capsule 100 mcg PO DAILY #90 caps 12/01/23 potassium citrate 10 mEq (1,080 10 meq PO DAILY Supplement #90 tabs 12/12/23 mg) tablet,extended release valacyclovir 500 mg tablet 500 mg PO TID #30 tabs 01/11/24 (Valtrex) telmisartan 40 mg tablet 40 mg PO DAILY #90 tabs 01/16/24 rosuvastatin 20 mg tablet 20 mg PO DAILY Cholesterol #90 tabs 01/18/24 tramadol 50 mg tablet 50 mg PO TID PRN pain #90 tabs 01/26/24 metoprolol succinate 25 mg 12.5 mg (1/2 x 25 mg) PO DAILY 02/01/24 tablet,extended release 24 hr High Blood Pressure #90 tabs miconazole nitrate 4 % (200 mg)-2 1 appful vaginal HS 3 days #24 02/02/24 % (9 gram)vaginal,prefill grams appl,cream (Monistat 3) Allergies Allergy/AdvReac Type Severity Reaction Status Date / Time Sulfa (Sulfonamide Allergy Verified 09/12/24 13:22 Antibiotics) Worker's Comp Is this a Worker's Comp case?: No [facility] Disclaimer: The information contained in this section may have been updated after the patient was seen, as this information can be updated by other users. Medical History (Updated 02/02/24 @ 11:51 by Callie Zheng APRN) On methotrexate therapy Encounter for pre-operative cardiovascular clearance Abnormal EKG CAD (coronary artery disease) Social History Smoking Status: Never smoker alcohol intake: never counseling provided: none substance use type: denies use current occupational status: retired Travel in the last 8 weeks: None household members: family housing: house caffeine: Yes ROS Obtained: Yes All systems reviewed & no additional complaints except as documented and Yes Systems reviewed as appropriate & no additional complaints except as documented Constitutional Constitutional: Reports system reviewed and no additional complaints, except as documented and Reports as per HPI ENT Ears, Nose, Mouth, and Throat: Reports system reviewed and no additional complaints, except as documented and Reports as per HPI Cardiovascular Cardiovascular: Reports system reviewed and no additional complaints, except as documented and Reports as per HPI Respiratory Respiratory: Reports system reviewed and no additional complaints, except as documented and Reports as per HPI Gastrointestinal Gastrointestingal: Reports system reviewed and no additional complaints, except as documented and as per HPI Genitourinary Female Genitourinary: Reports system reviewed and no additional complaints, except as documented, Reports as per HPI, Reports dysuria and Reports other (redness and burning to vaginal area) Physical Exam General General appearance: alert and in no apparent distress ENT ENT exam: Present mucous membranes moist Respiratory Respiratory exam: Present normal lung sounds bilaterally; Absent respiratory distress or wheezes Cardiovascular Cardiovascular exam: Present regular rate, normal rhythm and normal heart sounds External exam: Present erythema (and reports burning and redness to vaginal area) Neurological Exam Neurological exam: Present alert, oriented X3 and normal gait Medical Decision Making Abe Inquiry Pt receiving controlled substance: No Abe was queried for this patient: No Vital Signs: 02/02/24 11:05 Temperature 98.5 F Temperature Source Oral Pulse Rate [Left Brachial] 57 L Respiratory Rate 20 Blood Pressure [Left Arm] 169/85 H Blood Pressure Mean [Left Arm] 113 Blood Pressure Source [Left Arm] Automatic Cuff Blood Pressure Position [Left Arm] Sitting 02 Sat by Pulse Oximetry 96 Oxygen Delivery Method Room Air Lab Data Lab results reviewed: Yes I reviewed the patient's lab results. Lab Results 02/02/24 11:16: Urine Color Yellow, Urine Appearance Clear, Urine pH 6.5, Ur Specific [place] 1.015, Urine Protein Negative, Urine Glucose (UA) Negative, Urine Ketones Negative, Urine Blood 1+, Urine Nitrate Negative, Urine Bilirubin Negative, Urine Urobilinogen 0.2, Ur Leukocyte Esterase Negative
[2024-02-02 12:21] VITALS: BP 169/85; PULSE 57; RESP 20; TEMP 36.9
== END 2024-02-02 12:00 | disposition home or self-care (01) ==
PROVIDERS: Emergency Provider Nurse Practitioner; PCP Internal Medicine
DX: B37.31 Acute candidiasis of vulva and vagina (principal)
CPT/HCPCS: 81003; 87086; 99212; 99214; G0463

== ENCOUNTER 2024-02-20 09:02 | Outpatient (CLI) | payer MEDICARE, OTHER, SELFPAY ==
--- NOTE | 2024-02-20 09:09 | CA_ITS ---
APPROVED REPORT EXAM: Comprehensive 2D, Doppler, and color-flow Echocardiogram Car Storer: GRIFFIN Gillis, RVS Ht: 5 ft 0 in Wt: 108lbs BSA: 1.44 BP: 145/66 mmHg Indications: CAD, AFIB , HTN, HLD,Dizziness, Bradycardia 2D Dimensions Left Atrium 2.29 cm LA Volume 42.00 mL LA Volume Index 28.60 mL/m2 (M/F) 16-34 M-Mode Dimensions RVDd 1.69 cm (0.9-2.6) LA Diam 3.15 cm (1.9-4.0) LVDd 4.14 cm (3.5-5.7) LVDs 2.48 cm (3.5-5.7) IVSd 1.14 cm (0.6-1.1) PWd 0.93 cm (0.6-1.1) EF (Teich) 71.10% EPSs 0.64 cm FS 40.10% EDV (Teich) 75.90 mL TAPSE 2.09 (<1.7) ESV (Teich) 21.90 mL LV Diastology E Decel Time 220 (160-240 msec) E/A Ratio 0.79 MED A' 7.50 cm/s LAT A' 11.40 cm/s Aortic Valve CHRISTA Index 1.54 cm2/m2 AoV Peak Shahram. 114.0 (50-130 cm/s) AO Peak GR. 5.20 mmHg AO Mean GR. 2.70 (<5 mmHg) AO VTI 25.2 (18-25 cm) CHRISTA (VTI) 2.26 (2.5-4.5 cm2) Mitral Valve MV A Velocity 84.0 (40-130 cm/s) E/A Ratio 0.79 MV Mean Gr. 1.00 (<2mmHg) Tricuspid Valve TR P. Velocity 195.00 cm/s RAP Estimate 10.00 mmHg RVSP 25.10 mmHg Left Ventricle The left ventricle is normal size. The left ventricular systolic function is normal. The left ventricular ejection fraction is within the normal range. There is increased LV wall thickness. There is normal LV segmental wall motion. The left ventricular diastolic function is normal. LVEF is 55%. Right Ventricle The right ventricle is normal size. The right ventricular systolic function is normal. Atria The left atrium size is normal. The right atrium size is normal. There is no Doppler evidence of interatrial shunt. Aortic Valve The aortic valve is mildly thickened. There is no aortic valvular stenosis. Trace aortic regurgitation. Mitral Valve The mitral valve is normal in structure. No evidence of mitral valve stenosis. Trace mitral regurgitation. Tricuspid Valve The tricuspid valve leaflets are thin and pliable. Mild tricuspid regurgitation. RVSP is 20-25 mmHg. Pulmonic Valve The pulmonary valve is normal in structure. Trace pulmonic regurgitation. Great Vessels The aortic root is normal in size. The ascending aorta is normal in size. IVC is normal in size and collapses >50% with inspiration. Pericardium There is no pericardial effusion. Other Information Study Quality: Adequate Conclusion Normal biventricular systolic function. Mild TR. Electronically signed by : Yany Phillips MD 02/20/2024 12:30:27
== END 2024-02-20 23:59 | disposition home or self-care (01) ==
LOC: RT 09:03
PROVIDERS: PCP Internal Medicine; Visit Provider Internal Medicine
DX: R00.1 Bradycardia, unspecified; R42 Dizziness and giddiness; I07.1 Rheumatic tricuspid insufficiency
CPT/HCPCS: 93306

== ENCOUNTER 2024-02-29 12:07 | Outpatient (CLI) | payer MEDICARE, OTHER, SELFPAY ==
[2024-02-29 12:30] LABS: Basophils # 0.1 K/mm3 (0-0.2); Basophils % 0.8 % (0.1-2.0); Eosinophils # 0.2 K/mm3 (0.0-0.4); Eosinophils % 1.2 % (0.1-12.0); Hematocrit 37.4 % (37.0-47.0); Hemoglobin 12.3 g/dL (12.2-16.2); Lymphocytes # 1.2 K/mm3 (0.7-4.5); Lymphocytes % 8.6 % (10-50); Mean Corpuscular Volume 100.1 fl (81-99); Mean Platelet Volume 6.8 fl (7.4-10.4); Monocytes # 0.5 K/mm3 (0.1-1.0); Monocytes % 3.6 % (1.7-9.3); Neutrophils # 12.1 K/mm3 (1.8-7.8); Neutrophils % 85.8 % (37.0-80.0); Platelet Count 291 K/mm3 (142-424); Red Blood Count 3.74 M/mm3 (4.20-5.40); Red Cell Distribution Width 14.5 % (11.5-17.5)
[2024-02-29 12:32] LABS: MANUAL DIFFERENTIAL MANUAL DIFFERENTIAL (MANUAL DIFF)
[2024-02-29 12:57] LABS: Erythrocyte Sedimentation Rate 22 mm/hr (0-30)
[2024-02-29 13:19] LABS: Alanine Aminotransferase 26 U/L (12-78); Albumin Level 4.1 g/dl (3.5-5.0); Albumin/Globulin Ratio 1.7 (1.1-1.8); Alkaline Phosphatase 35 U/L (38-126); Anion Gap 6.5 mEq/L (5-15); Aspartate Amino Transferase 34 U/L (14-36); Bilirubin,Total 0.6 mg/dl (0.2-1.3); Blood Urea Nitrogen 21 mg/dl (7-17); Calcium 9.7 mg/dl (8.4-10.2); Carbon Dioxide 29 mmol/L (22.0-30.0); Chloride 100 mmol/L (98-107); Estimated Glomerular Filt Rate 49 ml/min (>60); GFR (African American) 59 ML/MIN (>60); Globulin 2.4 g/dL (1.3-3.2); Glucose 78 mg/dl (74-100); Potassium 4.5 mmoL/L (3.5-5.1); Sodium 131 mmol/L (136-145); Total Protein,Serum 6.5 g/dl (6.3-8.2)
[2024-02-29 13:25] LABS: C-Reactive Protein 2.9 mg/L (0-4)
[2024-02-29 14:49] LABS: Lymphocytes % 11 % (10-50); Monocytes % 3 % (2-9); Neutrophils % 86 % (42-76); Platelet Estimate Normal; RBC Morphology Normal; Total Cells Counted 100
== END 2024-02-29 23:59 | disposition home or self-care (01) ==
LOC: LAB 12:12
PROVIDERS: PCP Internal Medicine; Visit Provider Internal Medicine
DX: Z79.899 Other long term (current) drug therapy (principal)
CPT/HCPCS: 36415; 80053; 85007; 85025; 85027; 85651; 86140

== ENCOUNTER 2024-04-03 13:02 | Outpatient (CLI) | payer MEDICARE, OTHER, SELFPAY ==
[2024-04-03 13:32] LABS: Basophils # 0.1 K/mm3 (0-0.2); Basophils % 0.6 % (0.1-2.0); Eosinophils # 0.1 K/mm3 (0.0-0.4); Eosinophils % 0.4 % (0.1-12.0); Hematocrit 35.3 % (37.0-47.0); Hemoglobin 12.3 g/dL (12.2-16.2); Lymphocytes % 9.4 % (10-50); Mean Corpuscular HGB Conc 34.7 g/dL (31.8-35.4); Mean Corpuscular Hemoglobin 33.6 pg (27.0-31.2); Mean Corpuscular Volume 96.7 fl (81-99); Mean Platelet Volume 6.8 fl (7.4-10.4); Monocytes # 0.5 K/mm3 (0.1-1.0); Monocytes % 4.8 % (1.7-9.3); Neutrophils # 9.4 K/mm3 (1.8-7.8); Neutrophils % 84.7 % (37.0-80.0); Platelet Count 312 K/mm3 (142-424); Red Blood Count 3.65 M/mm3 (4.20-5.40); Red Cell Distribution Width 14.9 % (11.5-17.5); White Blood Count 11.1 K/mm3 (4.8-10.8)
[2024-04-03 13:55] LABS: Alanine Aminotransferase 22 U/L (12-78); Albumin Level 4.2 g/dl (3.5-5.0); Alkaline Phosphatase 37 U/L (38-126); Aspartate Amino Transferase 30 U/L (14-36); Bilirubin,Total 0.5 mg/dl (0.2-1.3); Blood Urea Nitrogen 17 mg/dl (7-17); Calcium 9.7 mg/dl (8.4-10.2); Carbon Dioxide 29 mmol/L (22.0-30.0); Chloride 98 mmol/L (98-107); Estimated Glomerular Filt Rate 49 ml/min (>60); GFR (African American) 59 ML/MIN (>60); Globulin 2.1 g/dL (1.3-3.2); Glucose 79 mg/dl (74-100); Sodium 135 mmol/L (136-145); Total Protein,Serum 6.3 g/dl (6.3-8.2)
[2024-04-03 14:00] LABS: Erythrocyte Sedimentation Rate 22 mm/hr (0-30)
[2024-04-03 14:01] LABS: C-Reactive Protein 1.9 mg/L (0-4)
== END 2024-04-03 23:59 | disposition home or self-care (01) ==
LOC: LAB 13:03
PROVIDERS: PCP Internal Medicine; Visit Provider Internal Medicine Rheumatology
DX: Z79.899 Other long term (current) drug therapy (principal)
CPT/HCPCS: 36415; 80053; 85025; 85651; 86140

== ENCOUNTER 2024-04-26 14:39 | Emergency (ER) | payer MEDICARE, OTHER, SELFPAY ==
[2024-04-26 14:40] VITALS: BP 152/76; PULSE 67; RESP 20; TEMP 36.7; O2SAT 100; BMI 21.4
--- NOTE | 2024-04-26 14:41 | ED_ITS ---
<Statement entered by Andre Brown MD - 04/26/24 23:23> I was consulted by the KRISTINE, and we discussed the complexity of the problems being addressed. I approved the treatment and management plan for this patient's care in the emergency department, thus performing a substantive portion of the medical decision making. Andre Brown MD, RUBY, FACEP Discharge Plan Disposition Patient Disposition: Home, Self-Care Condition: Good Prescriptions Prescriptions: No Action aspirin [Adult Low Dose Aspirin] 81 mg tablet,delayed release (DR/EC) 81 mg PO DAILY folic acid 1 mg tablet 1 mg PO DAILY methotrexate sodium 2.5 mg tablet 2.5 mg PO WEEKLY alendronate 70 mg tablet 70 mg PO WEEKLY metoprolol succinate 25 mg tablet extended release 24 hr 12.5 mg PO DAILY Qty: 90 3RF valacyclovir [Valtrex] 500 mg tablet 500 mg PO TID Qty: 30 2RF levothyroxine 100 mcg capsule 100 mcg PO DAILY Qty: 90 3RF potassium citrate 10 mEq (1,080 mg) tablet extended release 10 meq PO DAILY Qty: 90 1RF rosuvastatin 20 mg tablet 20 mg PO DAILY Qty: 90 1RF tramadol 50 mg tablet 50 mg PO TID PRN (Reason: pain) Qty: 90 0RF telmisartan 40 mg tablet See Rx Instructions .ROUTE .COMPLEX Qty: 90 1RF Dose Instruction: TAKE 1 TABLET BY MOUTH ONCE DAILY Rx Instructions: TAKE 1 TABLET BY MOUTH ONCE DAILY lorazepam 1 mg tablet 1.5 mg PO DAILY Qty: 60 0RF calcium carbonate 600 MG tablet 600 mg PO DAILY glucosamine sulfate 2KCl 1,000 MG tablet 1,000 mg PO DAILY miconazole nitrate [Monistat 3] 4 % (200 mg)- 2 % (9 gram) comb pack,prefill appl, cream 1 appful vaginal HS 3 Days Qty: 24 0RF Rx Instructions: as vaginal cream Referrals Follow up/Referrals: Carlton Wyatt MD [Primary Care Provider] - See instructions Activity Restrictions/Add. Instructions Additional Instructions/Restrictions: Follow-up with your surgeon as scheduled. Follow-up with your PCP sooner for any worsening signs or symptoms as needed or return to the ER as needed. Clinical Impressions Clinical Impression: Postoperative ecchymosis Print Language Print Language: Northern Irish Discharge ED Provider: Andre Brown General Adult HPI General Chief complaint: Recheck/Abnormal Lab/Rx Stated complaint: Hip Surgery 04/16-bruising, sent by Edmundo Time Seen by Provider: 04/26/24 14:49 History of Present Illness HPI narrative: Patient presents for evaluation of bruising of the left calf. Patient had a left total hip arthroplasty done at the [facility] on 04/12/2024. Patient has been doing well and at home and up to now has not had any significant complaints. However today she noticed some bruising on her right posterior calf. However she has no pain no fever no swelling at the site shortness of breath edema or chest pain. She saw her PCP who told her to come to the ER for evaluation. Related Data Home Medications ?Medication ?Instructions ?Recorded ?Confirmed calcium carbonate 600 mg PO DAILY Supplement 10/22/19 02/01/24 glucosamine sulfate 2KCl 1,000 mg 1,000 mg PO DAILY Supplement 10/22/19 02/01/24 tablet folic acid 1 mg tablet 1 mg PO DAILY Supplement 12/30/21 02/01/24 alendronate 70 mg tablet 70 mg PO WEEKLY Bone Loss 08/02/22 02/01/24 methotrexate sodium 2.5 mg tablet 2.5 mg PO WEEKLY Arthritis 08/02/22 02/01/24 aspirin 81 mg tablet,delayed 81 mg PO DAILY 08/01/23 02/01/24 release (Adult Low Dose Aspirin) Previous Rx's ?Medication ?Instructions ?Recorded levothyroxine 100 mcg capsule 100 mcg PO DAILY #90 caps 12/01/23 potassium citrate 10 mEq (1,080 10 meq PO DAILY Supplement #90 tabs 12/12/23 mg) tablet,extended release valacyclovir 500 mg tablet 500 mg PO TID #30 tabs 01/11/24 (Valtrex) rosuvastatin 20 mg tablet 20 mg PO DAILY Cholesterol #90 tabs 01/18/24 tramadol 50 mg tablet 50 mg PO TID PRN pain #90 tabs 01/26/24 metoprolol succinate 25 mg 12.5 mg (1/2 x 25 mg) PO DAILY 02/01/24 tablet,extended release 24 hr High Blood Pressure #90 tabs miconazole nitrate 4 % (200 mg)-2 1 appful vaginal HS 3 days #24 02/02/24 % (9 gram)vaginal,prefill grams appl,cream (Monistat 3) telmisartan 40 mg tablet See Rx Instructions .Route 02/09/24 .COMPLEX #90 tabs lorazepam 1 mg tablet 1.5 mg (1.5 x 1 mg) PO DAILY 03/25/24 Anxiety #60 tabs Allergies Allergy/AdvReac Type Severity Reaction Status Date / Time Sulfa (Sulfonamide Allergy Verified 02/01/24 13:22 Antibiotics) [facility] Disclaimer: The information contained in this section may have been updated after the patient was seen, as this information can be updated by other users. Medical History (Updated 04/26/24 @ 16:28 by MAGALI Lopez) On methotrexate therapy Encounter for pre-operative cardiovascular clearance Abnormal EKG CAD (coronary artery disease) Social History Smoking Status: Never smoker alcohol intake: never counseling provided: none substance use type: denies use current occupational status: retired Travel in the last 8 weeks: None household members: family housing: house caffeine: Yes Other Medical History Have you received the Flu Vaccine for this season: Yes Have you received the Pneumonia Vaccine: Yes ROS Obtained: Yes Systems reviewed as appropriate & no additional complaints except as documented Physical Exam General General appearance: alert and in no apparent distress Respiratory Respiratory exam: Present normal lung sounds bilaterally Cardiovascular Cardiovascular exam: Present regular rate Neurological Exam Neurological exam: Present alert and oriented X3 Medical Decision Making Medical Records Medical records reviewed: Yes I reviewed the patient's medical records. Screening: Per USPSTF and CDC recommendations, given the prevalence of disease in our region, it is our hospital?s policy to screen for HIV and viral Hepatitis for all patients aged 18 and over and those with ongoing risk factors. Abe Inquiry Pt receiving controlled substance: No Vital Signs: 04/26/24 14:40 04/26/24 15:47 Temperature 98.1 F 98.2 F Temperature Source Oral Pulse Rate 70 Pulse Rate [Right Radial] 67 Respiratory Rate 20 18 Blood Pressure 125/79 Blood Pressure [Right Arm] 152/76 H Blood Pressure Mean [Right Arm] 101 02 Sat by Pulse Oximetry 100 Oxygen Delivery Method Room Air Room Air Lab Data Lab results reviewed: Yes I reviewed the patient's lab results. Orders (Tests/Meds): ORDERS Category Date Time Status CA venous doppler LE LT Stat Y 04/26/24 14:47 Completed Medical Decision Narrative: In summary patient is a 74-year-old female who presents to the emergency department for evaluation of left lower extremity postoperative bruising. Patient is hemodynamically stable upon arrival, afebrile. Physical exam shows dependent ecchymosis along the posterior calf but still has ecchymosis around the operative site however the surgical incision is healing well is clean dry and intact, patient has no induration no edema no erythema has positive posterior pulses and it is nontender to palpation. Patient has a negative Homans' sign.. Differential diagnosis includes DVT versus normal postoperative migration of expected perioperative bleeding. Initial workup will be conducted with ultrasound DVT.. Initial interventions were considered however patient is asymptomatic thus deferred. My informal interpretation of her ultrasound shows no evidence of thrombus. That was confirmed by radiology. Given this patient is appropriate for referral back to her surgeon and PCP for any new or worsening symptoms as needed or she can return to the ER at any time. Critical Care Critical Care Time Critical Care Time: No
--- NOTE | 2024-04-26 14:47 | CA_ITS ---
FINAL REPORT TECHNIQUE: Color Doppler, duplex Doppler and compression sonography of the left lower extremity deep venous systems was performed. CLINICAL HISTORY: S/P LEFT MAJOR ON 04/16/24,LEFT CALF PAIN AND BRUISING LEFT HIP,PT ON ASA COMPARISON: None FINDINGS: There is no evidence of deep venous thrombosis from the level of the groin to the calf. The veins are patent and compressible. IMPRESSION: No evidence of deep venous thrombosis left lower extremity. Reviewed, Interpreted and Dictated by Carson Armstrong III, MD Transcribed by Kaylin Black Authenticated and . [facility]
--- NOTE | 2024-04-26 14:54 | PC.NURSE ---
vascular aware of us r/o dvt
--- NOTE | 2024-04-26 14:54 | PC.NURSE ---
pt placed in gown at this time
[2024-04-26 15:47] VITALS: BP 125/79; PULSE 70; RESP 18; TEMP 36.8; O2SAT 97
== END 2024-04-26 15:48 | disposition home or self-care (01) ==
LOC: ER 14:57
PROVIDERS: Emergency Provider Student in an Organized Health Care Education/Training Program; PCP Internal Medicine
DX: M79.662 Pain in left lower leg (principal); R58 Hemorrhage, not elsewhere classified
CPT/HCPCS: 93971; 99283

== ENCOUNTER 2024-06-11 12:07 | Outpatient (CLI) | payer MEDICARE, OTHER, SELFPAY ==
[2024-06-11 12:30] LABS: Basophils # 0.1 K/mm3 (0-0.2); Basophils % 0.5 % (0.1-2.0); Eosinophils % 0.3 % (0.1-12.0); Hematocrit 33.9 % (37.0-47.0); Hemoglobin 10.8 g/dL (12.2-16.2); Lymphocytes # 1.1 K/mm3 (0.7-4.5); Lymphocytes % 9.7 % (10-50); Mean Corpuscular HGB Conc 31.9 g/dL (31.8-35.4); Mean Corpuscular Hemoglobin 31.5 pg (27.0-31.2); Mean Corpuscular Volume 98.8 fl (81-99); Mean Platelet Volume 8.7 fl (7.4-10.4); Monocytes # 0.4 K/mm3 (0.1-1.0); Monocytes % 3.9 % (1.7-9.3); Neutrophils # 9.4 K/mm3 (1.8-7.8); Neutrophils % 84.4 % (37.0-80.0); Platelet Count 306 K/mm3 (142-424); Red Blood Count 3.43 M/mm3 (4.20-5.40); Red Cell Distribution Width 14.2 % (11.5-17.5); White Blood Count 11.1 K/mm3 (4.8-10.8)
[2024-06-11 12:53] LABS: Erythrocyte Sedimentation Rate 21 mm/hr (0-30)
[2024-06-11 13:05] LABS: Albumin Level 4.1 g/dl (3.5-5.0); Chloride 97 mmol/L (98-107); Sodium 131 mmol/L (136-145)
[2024-06-11 13:07] LABS: Blood Urea Nitrogen 21 mg/dl (7-17); Estimated Glomerular Filt Rate 44 ml/min (>60); GFR (African American) 53 ML/MIN (>60)
[2024-06-11 13:08] LABS: Alanine Aminotransferase 50 U/L (12-78); Albumin/Globulin Ratio 1.7 (1.1-1.8); Alkaline Phosphatase 57 U/L (38-126); Aspartate Amino Transferase 50 U/L (14-36); Bilirubin,Total 0.4 mg/dl (0.2-1.3); Carbon Dioxide 28 mmol/L (22.0-30.0); Globulin 2.4 g/dL (1.3-3.2); Glucose 114 mg/dl (74-100); Total Protein,Serum 6.5 g/dl (6.3-8.2)
[2024-06-11 13:42] LABS: C-Reactive Protein 0.7 mg/L (0-4)
== END 2024-06-11 23:59 | disposition home or self-care (01) ==
LOC: LAB 12:11
PROVIDERS: PCP Internal Medicine; Visit Provider Internal Medicine Rheumatology
DX: Z79.899 Other long term (current) drug therapy (principal)
CPT/HCPCS: 36415; 80053; 85025; 85651; 86140

== ENCOUNTER 2024-07-09 17:06 | Outpatient (CLI) | payer MEDICARE, OTHER, SELFPAY ==
[2024-07-09 17:10] LABS: Basophils # 0.1 K/mm3 (0-0.2); Basophils % 1.1 % (0.1-2.0); Eosinophils # 0.1 K/mm3 (0.0-0.4); Eosinophils % 1.3 % (0.1-12.0); Hemoglobin 10.9 g/dL (12.2-16.2); Lymphocytes # 1.4 K/mm3 (0.7-4.5); Lymphocytes % 22.7 % (10-50); Mean Corpuscular HGB Conc 32.1 g/dL (31.8-35.4); Mean Corpuscular Hemoglobin 31.8 pg (27.0-31.2); Mean Corpuscular Volume 99.1 fl (81-99); Mean Platelet Volume 9.5 fl (7.4-10.4); Monocytes # 0.4 K/mm3 (0.1-1.0); Monocytes % 5.9 % (1.7-9.3); Neutrophils # 4.2 K/mm3 (1.8-7.8); Neutrophils % 68.5 % (37.0-80.0); Platelet Count 272 K/mm3 (142-424); Red Blood Count 3.43 M/mm3 (4.20-5.40); Red Cell Distribution Width 14.4 % (11.5-17.5); White Blood Count 6.1 K/mm3 (4.8-10.8)
[2024-07-09 22:21] LABS: Albumin Level 4.2 g/dl (3.5-5.0); Chloride 99 mmol/L (98-107); Potassium 4.2 mmoL/L (3.5-5.1); Sodium 135 mmol/L (136-145)
[2024-07-09 22:23] LABS: Blood Urea Nitrogen 21 mg/dl (7-17)
[2024-07-09 22:24] LABS: Alanine Aminotransferase 33 U/L (12-78); Albumin/Globulin Ratio 1.9 (1.1-1.8); Alkaline Phosphatase 45 U/L (38-126); Anion Gap 9.2 mEq/L (5-15); Aspartate Amino Transferase 42 U/L (14-36); Bilirubin,Total 0.2 mg/dl (0.2-1.3); Calcium 9.1 mg/dl (8.4-10.2); Carbon Dioxide 31 mmol/L (22.0-30.0); Cholesterol 196 mg/dl (140-200); Estimated Glomerular Filt Rate 54 ml/min (>60); GFR (African American) 66 ML/MIN (>60); Globulin 2.2 g/dL (1.3-3.2); Glucose 65 mg/dl (74-100); Total Protein,Serum 6.4 g/dl (6.3-8.2); Triglycerides 141 mg/dl (30-150); VLDL Cholesterol 28 mg/dL (0-40)
[2024-07-09 22:25] LABS: Chol/HDL Ratio 2.9 (1-3.5); HDL Cholesterol 68 mg/dl (40-60)
[2024-07-10 10:21] LABS: Iron 68 ug/dL (37-170)
[2024-07-10 10:30] LABS: Total Iron Binding Capacity 298 ug/dL (265-497)
== END 2024-07-09 23:59 | disposition home or self-care (01) ==
LOC: LAB.DROPOF 17:06
PROVIDERS: PCP Internal Medicine; Visit Provider Internal Medicine
DX: I10 Essential (primary) hypertension (principal); E78.2 Mixed hyperlipidemia; E03.9 Hypothyroidism, unspecified; D64.9 Anemia, unspecified
CPT/HCPCS: 80053; 80061; 83540; 83550; 84443; 85025

== ENCOUNTER 2024-09-12 11:02 | Outpatient (CLI) | payer MEDICARE, OTHER, SELFPAY ==
--- OUTSIDE RECORDS SUMMARY | 2024-09-12 11:05 | XMS_ITS | Data Portability ---
Author Organization [facility] [place] Address [address] [place] [address] Assessment Encounter Date Assessment Date Assessment LastModified by Organization Details LastModified Time 11/17/2022 11/17/2022 72-year-old female with LLQ pain/change in bowel habits: -CT disc was brought in by the patient and personally reviewed by myself. She is noted to have a large amount of retained stool c/w constipation. She like has spurious diarrhea as a result. -Start Linzess 145 mcg p.o. daily. She will hold the other laxatives she has. -Start Bentyl as needed for abdominal cramping -EGD and colonoscopy last July with no significant findings [email or web address] Not available 11/17/2022 13:41:58 12/20/2022 12/20/2022 72-year-old female with LLQ pain/change in bowel habits. CT showed constipation. Her symptoms are improved with Linzess and Bentyl. She will continue and follow-up as needed. -EGD and colonoscopy last July with no significant findings [email or web address] Not available 12/20/2022 14:14:05 Plan of Treatment Reminders Order Date Submit Date Provider Last Modified By Organization Details Last Modified Time Details Appointments None recorded. Lab None recorded. Referral None recorded. Procedures None recorded. Surgeries None recorded. Imaging None recorded. Medication Orders Linzess 145 mcg capsule 2022 023 [facility], [address] [place] [address], [address], [place], [address], 13:42:08 dicyclomine 20 mg tablet 2022 023 [facility], [address], [address], [place], [address], 13:42:09 Patient TargetsNo targets recorded. Patient InstructionsNo instructions recorded. Reason for Referral None Reported. Problems Name Problem SNOMED Code Status Onset Date Resolution Date Notes Provider Name and Address Organization Details Recorded Time Arthritis 4147628 Active 2022 Leonie Kurtz null, [place] - [facility] - [place] 3 13:11:16 Hypercholeste rolemia 82341448 Active 2022 Leonie Kurtz null, [place] - [facility] [place] 3 13:11:30 Left lower quadrant pain 895474992 Active 2022 Dhruv Mathis PA-C [address], [place], [address] , [place] - [facility] & [place] 3 13:37:47 Chronic idiopathic constipation 26640152 Active 2022 Dhruv Mathis PA-C [address], [place], [address] , [place] - [facility] & [place] 3 13:37:56 Problem Notes None recorded. Procedures Surgical History Date Name Laterality Status Provider Name and Address Organization Details Recorded Time Stent Placement completed Leonie Kurtz [place] [facility] & [place] 11/17/2022 13:10:11 Imaging Results None recorded. Procedure Notes None recorded. Medical Equipment None Reported. Allergies Allergen ID Allergen Name Allergen Category Reaction Reaction Severity Criticality Documentation Date Start Date Code Code System Note Provider Name and Address Organization Details Recorded Time 06015 Substance with sulfonami de structure and antibacte rial mechanism of action (substanc e) medicatio n Not available Not available Not available 11/17/2022 91215 8003 SNOMED Leonie Kurtz null, [place] - [facility] - [place] 3 13:09:05 Medications Name Sig Start Date Stop Date Status Note LastModified by Organization Details LastModified Time tizanidine 4 mg tablet active Not Available Not Available No t Available fluconazole 150 mg tablet active Not Available Not Available Not Available ondansetron HCl 4 mg tablet active Not Available Not Available Not Available alendronate 70 mg tablet Take 1 tablet every week by oral route. active Not Available Not Available No t Available prednisone 5 mg tablet active Not Available Not Available No t Available valacyclovir 500 mg tablet active Not Available Not Available Not Available tramadol 50 mg tablet active Not Available Not Available No t Available methotrexate sodium 2.5 mg tablet active Not Available Not Available No t Available dicyclomine 20 mg tablet Take 1 tablet by mouth on an empty stomach, three times daily, 30 days 2022 active Not Available Not Available Not Avai lable prednisone 1 mg tablet active Not Available Not Available No t Available ciprofloxaci n 0.3 % eye drops active Not Available Not Available Not Available amitriptylin e 10 mg tablet active Not Available Not Available Not Available levothyroxin e 50 mcg tablet Take 1 tablet every day by oral route. active Not Available Not Available No t Available Micardis 40 mg tablet Take 1 tablet every day by oral route. active Not Available Not Available No t Available folic acid 1 mg tablet Take 1 tablet every day by oral route. active Not Available Not Available No t Available metoprolol succinate ER 25 mg tablet,exten ded release 24 hr active Not Available Not Available Not Available lorazepam 1 mg tablet Take 1 tablet 3 times a day by oral route. active Not Available Not Available No t Available cefdinir 300 mg capsule active Not Available Not Available N ot Available amoxicillin 875 mg-potassium clavulanate 125 mg tablet active Not Available Not Available Not Available tobramycin 0.3 %-dexamethas one 0.1 % eye drops,suspen zelalem active Not Available Not Available Not Available methotrexate 25 mg/mL injection solution Take by injection route. active Not Available Not Available No t Available rosuvastatin 20 mg tablet Take 1 tablet every day by oral route. active Not Available Not Available No t Available lactulose 10 gram/15 mL oral solution active Not Available Not Available Not Available potassium acetate active Not Available Not Available Not Available lactulose active Not Available Not Nenita ilable Not Available fiber active Not Available Not Availa ble Not Available ondansetron active Not Available Not A vailable Not Available Glucosamine Chondroitin active Not Available Not Available Not Available Sentry Senior active Not Available Not Available Not Available NOLA J&B active Not Available Not Available Not Available Brilinta 90 mg tablet active Not Available Not Available No t Available Linzess 145 mcg capsule Take 1 capsule every day by oral route in the morning for 30 days. 2022 active Not Available Not Available Not Avai lable Calcium Magnesium active Not Available Not Available No t Available metoprolol succinate ER 25 mg capsule sprinkle, ext. release 24 hr Take 1 capsule every day by oral route. active Not Available Not Available No t Available Rocklatan 0.02 %-0.005 % eye drops INSTILL 1 DROP INTO AFFECTED EYE(S) BY OPHTHALMIC ROUTE ONCE DAILY INTHE EVENING active Not Available Not Available No t Available aspirin 81 mg capsule Take 1 capsule every day by oral route. active Not Available Not Available No t Available Lastacaft Once Daily Relief active Not Available Not Available Not Available Vitals Date Recorded Body weight Body mass index (BMI) Body height Body temperature Heart rate Systolic blood pressure Diastolic blood pressure Provider Name and Address Organization Details Last Updated DateTime 96920.9 1 g 21.8 kg/m2 152.4 cm 97.3 [degF] 62 /min 129 mm[Hg] 70 mm[Hg] Leonie Murillodwell [facility] [place] 13:09:20 Social History Question Answer Notes LastModified by Organizat ion Details LastModified Time Tobacco Smoking Status Never Smoker Leonie Murillodwell [facility], [facility] [place] 11/17/2022 13:10:35 What Is Your Level Of Alcohol Consumption? None Information not available 11/17/2022 What Is Your Level Of Caffeine Consumption? Moderate Information not available 11/17/2022 Do You Use Any Illicit Or Recreational Drugs? No [email or web address] Information not available 11/17/2022 Do You Or Have You Ever Used Any Other Forms Of Tobacco Or Nicotine? No [email or web address] Information not available 11/17/2022 Sex: Unknown Functional Status None recorded. Mental Status None recorded. Family History Relationship Description Onset Age of this Age Resolved Age Notes LastModified by Organization Details LastModified Time Mother Hypertensive disorder [email or web address] Not available 10/21 13:10:51 Mother Arthritis [email or web address] Not avail able 11/17/2022 13:11:00 Medical History No medical history recorded. Gynecological HistoryNo gynecological history recorded. Obstetrics History GPAL:G 0 P 0 0 0 0 Past Encounters Encounter ID Performer Location Encounter Start Date Encounter Closed Date Diagnosis/Indication Diagnosis SNOMED-CT Code Diagnosis ICD10 Code Diagnosis Note [id number] Dhruv Mathis PA-C [facility] [address] [address] 11/17/2022 13:00:51 11/17/2022 13:36:45 Left lower quadrant pain 078238653 R10.32 Chronic id iopathic constipation 55438954 K59.04 [id number] Dhruv Mathis PA-C [facility] [address] [address] 12/20/2022 13:35:47 12/20/2022 14:05:10 Left lower quadrant pain 857621435 R10.32 Chronic id iopathic constipation 55290589 K59.04 Health Concerns Section Related Observation LastModified by Organization Detai ls LastModified Time None Recorded Concern Status LastModified by Organization Details LastModified Time None Recorded Advance Directives Directive None Recorded Payers Encounter Date Sequence Insurance Name Policy Number Policy Foreman Covered Member ID Foreman Member ID Guarantor Name 11/17/2022 1 [employer] (MEDICARE REPLACEMENT/A DVANTAGE - PPO) Kaylin Walton [id number] Kaylin Walton 12/20/2022 1 [employer] (MEDICARE REPLACEMENT/A DVANTAGE - PPO) Kaylin Walton [id number] Kaylin Walton Notes Date Note Type Note Provider Name and Address Organization Details Recorded Time 11/17/2022 text/html Very pleasant 72-year-old female with history of iron deficiency anemia, not presenting with complaint of alternating constipation and diarrhea with LLQ abdominal pain. She was recently empirically treated with antibiotics by her PCP for suspected diverticulitits, however her symptoms did not improve. She was then sent for CT abd/pelvis done at [facility] that showed constipation with mild wall thickening of the proximal descending colon. She last underwent EGD and colonsocopy on 08/03/21 that was unremarkable. Recent stool studies were reported as normal. She has taken some lactulose and stool softners recently, but she states they haven't seemed to change her symptoms much. Miralax and Metamucil were used in the past and did not improve constipation. Dhruv Mathis PA-C [address], [place], [address], [facility] & [place] 11/17/2022 13:42:09 12/20/2022 text/html PREVIOUS (10/2922 ): Very pleasant 72-year-old female with history of iron deficiency anemia, not presenting with complaint of alternating constipation and diarrhea with LLQ abdominal pain. She was recently empirically treated with antibiotics by her PCP for suspected diverticulitits, however her symptoms did not improve. She was then sent for CT abd/pelvis done at [facility] that showed constipation with mild wall thickening of the proximal descending colon. She last underwent EGD and colonsocopy on 08/03/21 that was unremarkable. Recent stool studies were reported as normal. She has taken some lactulose and stool softners recently, but she states they haven't seemed to change her symptoms much. Miralax and Metamucil were used in the past and did not improve constipation. CURRENT (12/20/22 Sidney Mathis): Ms. Walton presents via telephonic encounter today for follow-up regarding constipation with overflow stools. She was previously prescribed Linzess 145 mcg daily. This has helped to better regulate her bowel habits. She has decreased the dosing to every other day due to some diarrhea. She feels she is managing much better this way. She has also used the dicyclomine at times her abdominal cramping is worse and this has also been helpful for her. She denies any additional complaints at this time. I spent a total of 6 minutes during this real-time clinical encounter that was initiated by the patient which started at 1353 and ended at 1359. Consent was obtained to engage in telephonic service. Greater than 50% of the time spent was devoted to counseling and coordinating care including review of patient record, patient lab data and studies as well as discussing diagnostic evaluation and workup, planned therapeutic intervention and further disposition of care. Dhruv Mathis PA-C [address], [place], [address], [place] [facility] & [place] 12/20/2022 14:14:26 OBGyn Episode No OBEpisode recorded.
--- OUTSIDE RECORDS SUMMARY | 2024-09-12 11:05 | XMS_ITS | Data Portability ---
Author Organization DEANDRE MABRIN [facility] Address [address] [place] [address] Care Team Providers Care Complaint Inspector Name Role Phone COLE FOLEY Primary Care Provider RENATE COTTO Bed Placement Coordinator [phone] Assessment No assessment recorded. Plan of Treatment Reminders Order Date Submit Date Provider Last Modified By Organization Details Last Modified Time Details Appointments RHEUM RECHECK 2024 11:20A M RENATE COTTO MD Not available Not available Not available Lab CBC w/ auto diff [address] [facility], [address] [place] [address], [id number], 06/19/2024 08:08:07 CMP, serum or plasma [address] [facility], [address] [place] [address], [id number], 06/19/2024 08:08:07 ESR (erythro cyte sediment ation rate), blood [address] [facility], [address] [place] [address], [id number], 06/19/2024 08:08:07 C reactive protein, QN, serum or plasma [address] [facility], [address] [place] [address], [id number], 06/19/2024 08:08:07 CBC w/ auto diff 2023 024 [email or web address] [facility], [address] [place] [address], [id number], 03/13/2024 08:17:04 CMP, serum or plasma 2023 024 [email or web address] [facility], [address] [place] [address], [id number], 03/13/2024 08:17:04 ESR (erythro cyte sediment ation rate), blood 2023 024 [email or web address] [facility], [address] [place] [address], [phone], 03/13/2024 08:17:04 C reactive protein, QN, serum or plasma 2023 024 [facility], [address] [place] [address], [id number], 03/13/2024 08:17:04 Referral None recorded . Procedures None recorded . Surgeries None recorded . Imaging DEXA - schedule with next office visit 2023 024 [email or web address] [facility] Bone Density [facility], [address] [place] [address], [address], 03/06/2024 11:58:09 Medication Orders methotre xate sodium 2.5 mg tablet 2024 025 [facility], [address] [place], [address], 06/12/2024 15:30:03 folic acid 1 mg tablet 2024 025 [facility], [address] [place], [address], 06/12/2024 15:29:59 predniso ne [address] tablet [address] [facility], [address] [place] [address], [address], [place], [address], 06/12/2024 12:18:26 alendron ate 70 mg tablet 2024 025 [facility] , [address], [place], [address], 06/12/2024 15:30:06 methotre xate sodium 2.5 mg tablet 2023 024 [facility] , [address], [place], [address], 03/06/2024 13:29:35 folic acid 1 mg tablet 2023 [facility] , [address], [place], [address], 03/06/2024 13:29:39 predniso ne 5 mg tablet 2023 024 [facility] , [address], [place], [address], 03/06/2024 13:30:19 alendron ate 70 mg tablet 2023 024 [facility] , [address], [place], [address], 03/06/2024 13:29:37 Patient TargetsNo targets recorded. Patient InstructionsNo instructions recorded. Reason for Referral None Reported. Results Created Date Observation Date Name Description Value Unit Range Abnormal Flag Note LastModifiedBy Organization Detail LastModifiedTime 06/12/19 25 06/12/2024 DEXA No observ ation record ed. Aleja Gooden MD [address] [place] [address], [phone], 06/17/2024 14:21:47 Result Notes Documentation Provider Name and Address Organization Details Recorded Time Dexa : [facility] ? ? [address] [facility] [id number], Pamela K (id #[id number], : 1950) [address] [address] Date: 06/12/2024RE: Kaylin Walton, : 1950, PT ID #[id number] Cotto MD, I would like to thank you for referring Kaylin Walton to our practice for consultation and evaluation. I have enclosed a copy of the office evaluation for your records. Sincerely, Electronically Signed by: ALEJA GOODEN, MDProcedure DocumentationDXA Normal:Bone Densitometry Report Dual Energy X-Ray Absorptiometry (DXA)Baseline bone mineral density measurement was performed on a HoloJemstep QDR-4500C scanner with good technique. Bilateral hip replacement Ordering Provider Renate Hagen Indications for the study:1. Post-menopausal state The L1-L4 lumbar spine bone density scan demonstrates lumbar spine T-score of 0.6, Z-score of 2.9, BMD 1.115 g/cm??. The left forearm bone density scan demonstrates a 1/3 radius T-score of -0.8, Z-score of 1.6, BMD 0.647 g/cm?? .IMPRESSION: Normal as demonstrated by bone density measurements.As perNational Osteoporosis Foundation 2014,postmenopausal women and men age 50 and older presenting with any the following should be considered for treatment:? A hip or vertebral (clinical or morphometric) fracture or T-score = -2.5 at the femoral neck or spine after appropriate evaluation to exclude secondary causes or Low bone mass (T-score between -1.0 and -2.5 at the femoral neck or spine) and a 10-year probability of a hip fracture = 3% or a 10-year probability of a major osteoporosis-related fracture = 20% based on the [place]-adapted WHO algorithm? Patient is not a candidate for pharmacologic therapy of osteoporosis based on the above-mentioned criteria.RECOMMENDATIONS:1. Ensure adequate calcium and vitamin D intake (1200 mg elemental calcium daily and 2000 IU Vit D daily) if this is clinically appropriate. Keep active vitamin D level >30 ng/mL.? 2. Encourage practices to help increase bone density (i.e. resistance/weight bearing exercise 3x weekly) if it could be done safely. 3. Discourage practices that would compromise bone density quality ( i.e. smoking, excessive alcohol consumption, and caffeine consumption) when applicable. 4. Follow bone density as appropriate per referring provider, utilizing the same scanning equipment to ensure stability or reliability. 6. Fall prevention. [facility] 06/17/2024 14:21:47 Procedures Surgical History Date Name Laterality Status Provider Name and Address Organization Details Recorded Time 5 [place] [address] [place] [address], [phone], [facility] 06/12/2024 19:13:56 total replacement of hip completed [facility] 03/06/2024 11:26:14 Cardiac Surgery completed [facility] 03/06/2024 11:26:29 total replacement of hip completed [facility] 06/12/2024 11:47:41 Imaging Results Imaging Date Name Status LastModified by Organizatio n Details LastModified Time 06/12/2024 DEXA completed Aleja Gooden MD [address] [place], [address], 06/17/2024 14:21:47 Procedure Notes None recorded. Medical Equipment None Reported. Allergies Allergen ID Allergen Name Allergen Category Reaction Reaction Severity Criticality Documentation Date Start Date Code Code System Note Provider Name and Address Organization Details Recorded Time 449363 Substance with sulfonami de structure and antibacte rial mechanism of action (substanc e) medicatio n Not available Not available Not available 03/06/2024 96376 8003 SNOMED [facility] 11:24:59 Medications Name Sig Start Date Stop Date Status Note LastModified by Organization Details LastModified Time alendronate 70 mg tablet Take 1 tablet every week by oral route. 2024 active Not Available Not Available Not Avai lable prednisone 5 mg tablet Take 1 tablet every day by oral route. 2023 active Not Available Not Available Not Avai lable methotrexate sodium 2.5 mg tablet Take 8 tablets every week by oral route. 2024 active Not Available Not Available Not Avai lable prednisone 1 mg tablet Take 4 tablets daily for 2 weeks then 3 tablets daily for 2 weeks, then 2 tablets daily x 2 weeks, then 1 tablet daily x 2 weeks then off. 2024 active Not Available Not Available Not Avai lable telmisartan 40 mg tablet Take 1 tablet every day by oral route. active Not Available Not Available No t Available folic acid 1 mg tablet Take 1 tablet every day by oral route. 2024 active Not Available Not Available Not Avai lable metoprolol succinate ER 25 mg tablet,extended release 24 hr Take 1 tablet every day by oral route. active Not Available Not Available No t Available lorazepam 1 mg tablet Take 1 tablet 3 times a day by oral route. active Not Available Not Available No t Available rosuvastatin 20 mg tablet Take 1 tablet every day by oral route. active Not Available Not Available No t Available potassium acetate active Not Available Not Available Not Available levothyroxine active Not Available Not Available Not Available biotin active Not Available Not Availa ble Not Available tramadol active Not Available Not Avai lable Not Available fiber active Not Available Not Availa ble Not Available Tylenol Arthritis Pain active Not Available Not Availab le Not Available Probiotic active Not Available Not Nenita ilable Not Available Benhauer active Not Available Not Available Not Available calcium 250 mg-magnesium 40 mg-D3 125 unit-zinc 3.67zx-sre-mdox tablet Take by oral route. active Not Available Not Available No t Available brimonidine 0.025 % eye drops active Not Available Not Available Not Available Multivitamin Women 50 Plus active Not Available Not Availabl e Not Available Glucosamine Chondroitin active Not Available Not Available Not Available Vitals Date Recorded Body weight Body mass index (BMI) Body height Respiratory rate Heart rate Oxygen saturation Oxygen saturation in Arterial blood by Pulse oximetry Systolic blood pressure Diastolic blood pressure Provider Name and Address Organization Details Last Updated DateTime 4 31124.3 8 g 21.1 kg/m2 152.4 cm 14 /min 53 /min 97 % 97 % 130 mm[Hg] 82 mm[Hg] [facility] 4 11:27:57 Date Recorded Body height Body mass index (BMI) Body weight Provider Name and Address Organization Details Last Updated DateTime 06/12/2024 148.59 cm 22.2 kg/m2 79826.98 g Haylee Mazariegos [facility] 06/12/2024 10:48:21 Date Recorded Body height Body mass index (BMI) Body weight Respiratory rate Heart rate Oxygen saturation Oxygen saturation in Arterial blood by Pulse oximetry Systolic blood pressure Diastolic blood pressure Provider Name and Address Organization Details Last Updated DateTime 148.59 cm 22 kg/m2 47575.0 8 g 14 /min 52 /min 100 % 100 % 138 mm[Hg] 90 mm[Hg] [facility] 5 11:49:21 Social History Question Answer Notes LastModified by Organizat ion Details LastModified Time Tobacco Smoking Status Never Smoker [facility] 03/06/2024 11:25:48 What Is Your Level Of Alcohol Consumption? None Information not available 03/06/2024 What Was The Date Of Your Most Recent Tobacco Screening? 06/12/2024 Information not available 06/12/2024 Sex: Female Functional Status None recorded. Mental Status None recorded. Family History Nothing Reported. Medical History Condition Response Diabetes N Bleeding Disorder N Arthritis Y Emphysema N Acid Reflux (GERD) N Heart Disease N Rheumatoid Arthritis Y Hypertension Y Asthma N COPD N Gynecological HistoryNo gynecological history recorded. Obstetrics History GPAL:G 0 P 0 0 0 0 Past Encounters Encounter ID Performer Location Encounter Start Date Encounter Closed Date Diagnosis/Indication Diagnosis SNOMED-CT Code Diagnosis ICD10 Code Diagnosis Note [id number] RENATE COTTO MD [facility] [address] [place] [address] 03/06/2024 10:59:38 03/07/2024 04:36:32 Seropositive rheumatoid arthritis 618132056 M05.9 Diagnosed in 2021Negati ve RF , ++ Anti-CCP Ab 43, Negative ALEX IFA (done by PCP)ESR 114, Thrombocyt osis, CRP 89.5 (normal 0-40) X-ray of the right shoulder had osteoarthr itis in the AC joint but otherwise normal She has had inflammato ry pain in her shoulders, hips and hands. No synovitis. Great response to low to moderate dose steroids, originally dx with polymyalgi a rheumatica Avoids NSAIDs with renal insufficie ncy low disease activity. Swollen joint count 0. Tender joint count 5. Good prognosis -Increase methotrexa te from 15 mg weekly to 20 mg weekly (8 tablets)- continue folic acid 1 mg daily- request most recent labs from [facility]- continue prednisone 5 mg daily for now- consider addition of Il-6 or TNF inhibitor Long-term current use of drug therapy 526791818 Z79.899 - labs again in a month and then every 3 months- she will stay on methotrexa te through her left hip replacemen t surgery with Dr. Do next month - We discussed the possible side effects of methotrexa te including, but not limited to: oral ulcers, nausea, diarrhea, rash, increased infection risk, bone marrow suppressio n, hepatitis, pulmonary toxicity. We discussed the need to avoid alcohol and to have regulatory lab monitoring done while taking methotrexa te. We discussed that live virus vaccines are contraindi cated while taking methotrexa te. Polymyalgi a rheumatica 32820514 M35.3 - still on prednisone 5 mg daily- will try to wean this as able Osteoporosis 14250918 M8 1.0 DEXA ( 2) showed osteopenia in the left femoral neck with worse T-score of-1.3. Normal bone density in lumbar spine and total hip. Frac score suggested 10 year hip fracture risk of 3.1%. This makes her a candidate for bisphospho cleopatra therapy - Continue alendronat e 70mg weekly (started 11/2021)- Continue Vitamin D supplement ation with 2,000 IU daily- Continue calcium in diet- Repeat DEXA due after 11/2023. Ordered today to be done with next visit [id number] RENATE COTTO MD [place] [facility] [address] [place] [address] 06/12/2024 10:30:02 06/13/2024 05:32:43 Seropositive rheumatoid arthritis 083528837 M05.9 Diagnosed in 2021Negati ve RF , ++ Anti-CCP Ab 43, Negative ALEX IFA (done by PCP)ESR 114, Thrombocyt osis, CRP 89.5 (normal 0-40) X-ray of the right shoulder had osteoarthr itis in the AC joint but otherwise normal She has had inflammato ry pain in her shoulders, hips and hands. No synovitis. Great response to low to moderate dose steroids, originally dx with polymyalgi a rheumatica Avoids NSAIDs with renal insufficie ncy low disease activity. Swollen joint count 0. Tender joint count 5. Good prognosis -Continue methotrexa te 20 mg weekly (8 tablets)- continue folic acid 1 mg daily-Wean prednisone by 1 mg every 2 weeks till off- consider addition of Il-6 or TNF inhibitor Long-term current use of drug therapy 695671145 Z79.899 - labs again in a month and then every 3 months- she will stay on methotrexa te through her left hip replacemen t surgery with Dr. Do next month - We discussed the possible side effects of methotrexa te including, but not limited to: oral ulcers, nausea, diarrhea, rash, increased infection risk, bone marrow suppressio n, hepatitis, pulmonary toxicity. We discussed the need to avoid alcohol and to have regulatory lab monitoring done while taking methotrexa te. We discussed that live virus vaccines are contraindi cated while taking methotrexa te. Polymyalgi a rheumatica 94089259 M35.3 - still on prednisone 5 mg daily- will try to wean this as able Osteoporosis 42826658 M8 1.0 DEXA ( 2) showed osteopenia in the left femoral neck with worse T-score of-1.3. Normal bone density in lumbar spine and total hip. Frac score suggested 10 year hip fracture risk of 3.1%. This makes her a candidate for bisphospho cleopatra therapy - Continue alendronat e 70mg weekly (started 11/2021)- Continue Vitamin D supplement ation with 2,000 IU daily- Continue calcium in diet-She got her repeat DEXA today 06/12/2024 [id number] ALEJA GOODEN MD [facility] [address] [place] [address] 06/12/2024 10:29:15 06/12/2024 10:48:44 Osteopenia 653979215 M85.89 Health Concerns Section Related Observation LastModified by Organization Ivonne bernal LastModified Time None Recorded Concern Status LastModified by Organization Details LastModified Time None Recorded Advance Directives Directive None Recorded Payers Encounter Date Sequence Insurance Name Policy Number Policy Foreman Covered Member ID Foreman Member ID Guarantor Name 03/06/2024 2 [employer] (HU[place]ON) Kaylin Walton [id number] Kaylin Walton 03/06/2024 1 [employer] (MEDICARE REPLACEMENT/ ADVANTAGE - PPO) Kaylin Walton [id number] Kaylin Walton 06/12/2024 2 () Kaylin Walton [id number] Kaylin Walton 06/12/2024 1 [employer] (MEDICARE REPLACEMENT/ ADVANTAGE - PPO) Kaylin Walton [id number] Kaylin Walton 06/12/2024 2 () Kaylin Walton [id number] Kaylin Walton 06/12/2024 1 [employer] (MEDICARE REPLACEMENT/ ADVANTAGE - PPO) Kaylin Walton [id number] Kaylin Walton Notes Date Note Type Note Provider Name and Address Organization Details Recorded Time 03/06/2024 text/html Kaylin Walton is a 74 yo woman with past medical history of RA/PMR initially diagnosed 2021. Rheumatoid factor has been negative but anti-CCP antibody has been positive.She has history of inflammatory pain in her shoulders, hips and hands with significant improvement on methotrexateToday she reports she is doing reasonably well on methotrexate, but she is having more pain in the shoulders and some in the right hand. No significant side effects. No swollen joints. No temporal headaches or jaw claudication.She reports she needs her left hip replaced. Followed by orthopedics Dr. Do. She says that about 1 year ago she had to have a cerebral aneurysm coiled by Dr. Maldonado. [facility] last week had labs done, but these are not available at the appointment. RENATE COTTO MD [address] [place], [address], [facility] 03/06/2024 12:38:19 06/12/2024 text/html Kaylin Walton is a 74 yo woman with past medical history of RA/PMR initially diagnosed 2021. Rheumatoid factor has been negative but anti-CCP antibody has been positive.She has history of inflammatory pain in her shoulders, hips and hands with significant improvement on methotrexate. She just completed treatment with azithromycin for bronchitis. She is going to restart her methotrexate this week. She takes this on Fridays. No significant side effects. No swollen joints. No temporal headaches or jaw claudication.She reports she needs her left hip replaced. Followed by orthopedics Dr. Do. She says that about 1 year ago she had to have a cerebral aneurysm coiled by Dr. Maldonado. RENATE COTTO MD [address] [place] [address], [phone], [facility] 06/12/2024 13:12:31 OBGyn Episode No OBEpisode recorded.
[2024-09-12 11:31] LABS: Basophils # 0.1 K/mm3 (0-0.2); Basophils % 0.8 % (0.1-2.0); Eosinophils # 0.4 Kmm3 (0.0-0.4); Eosinophils % 5.4 % (0.1-12.0); Hematocrit 33.3 % (37.0-47.0); Hemoglobin 11.1 g/dL (12.2-16.2); Lymphocytes % 13.2 % (10-50); Mean Corpuscular HGB Conc 33.3 g/dL (31.8-35.4); Mean Corpuscular Hemoglobin 32.6 pg (27.0-31.2); Mean Corpuscular Volume 97.9 fl (81-99); Mean Platelet Volume 8.7 fl (7.4-10.4); Monocytes # 0.7 K/mm3 (0.1-1.0); Monocytes % 8.9 % (1.7-9.3); Neutrophils # 5.3 K/mm3 (1.8-7.8); Neutrophils % 70.8 % (37.0-80.0); Nucleated Red Blood Cells # 0 10^3/uL; Nucleated Red Blood Cells % 0 %; Platelet Count 196 K/mm3 (142-424); Red Cell Distribution Width 14.6 % (11.5-17.5); Red Cell Distribution Width-SD 52.3 fL; White Blood Count 7.5 K/mm3 (4.8-10.8)
[2024-09-12 11:46] LABS: Alanine Aminotransferase 23 U/L (12-78); Albumin Level 3.9 g/dl (3.5-5.0); Albumin/Globulin Ratio 1.4 (1.1-1.8); Alkaline Phosphatase 48 U/L (38-126); Anion Gap 10.1 mEq/L (5-15); Aspartate Amino Transferase 35 U/L (14-36); Bilirubin,Total 0.5 mg/dl (0.2-1.3); Blood Urea Nitrogen 20 mg/dl (7-17); Calcium 9.1 mg/dl (8.4-10.2); Carbon Dioxide 30 mmol/L (22.0-30.0); Chloride 99 mmol/L (98-107); Estimated Glomerular Filt Rate 44 ml/min (>60); GFR (African American) 53 ML/MIN (>60); Globulin 2.8 g/dL (1.3-3.2); Glucose 82 mg/dl (74-100); Potassium 4.1 mmoL/L (3.5-5.1); Sodium 135 mmol/L (136-145); Total Protein,Serum 6.7 g/dl (6.3-8.2)
[2024-09-12 11:52] LABS: C-Reactive Protein 6.2 mg/L (0-4)
[2024-09-12 12:19] LABS: Erythrocyte Sedimentation Rate 29 mm/hr (0-30)
== END 2024-09-12 23:59 | disposition home or self-care (01) ==
LOC: LAB 11:03
PROVIDERS: PCP Internal Medicine; Visit Provider Internal Medicine Rheumatology
DX: Z79.899 Other long term (current) drug therapy (principal)
CPT/HCPCS: 36415; 80053; 85025; 85651; 86140

== ENCOUNTER 2024-10-01 11:01 | Outpatient (CLI) | payer MEDICARE, OTHER, SELFPAY ==
--- OUTSIDE RECORDS SUMMARY | 2024-10-01 11:03 | XMS_ITS | Data Portability ---
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 Plan of Treatment Reminders Order Date Submit Date Provider Last Modified By Organization Details Last Modified Time Details Appointments RHEUM RECHECK 2024 11:45A M RENATE COTTO MD Not available Not available Not available Lab CBC w/ auto diff [address] [facility], [address] [place] [address], [id number], 09/24/2024 08:14:25 CMP, serum or plasma [address] [facility], [address] [place] [address], [phone], 09/24/2024 08:14:25 ESR (erythro cyte sediment ation rate), blood [address] [facility], [address] [place] [address], [id number], 09/24/2024 08:14:25 C reactive protein, QN, serum or plasma [address] [facility], [address] [place] [address], [id number], 09/24/2024 08:14:25 CBC w/ auto diff [address] [facility], [address] [place] [address], [id number], 06/19/2024 08:08:07 CMP, serum or plasma [address] [facility], [address] [place] [address], [id number], 06/19/2024 08:08:07 ESR (erythro cyte sediment ation rate), blood [address] [facility], [address] [place] [address], [id number], 06/19/2024 08:08:07 C reactive protein, QN, serum or plasma [address] [facility], [address] [place] [address], [id number], 06/19/2024 08:08:07 CBC w/ auto diff [address] [facility], [address] [place] [address], [id number], 03/13/2024 08:17:04 CMP, serum or plasma [address] [facility], [address] [place] [address], [id number], 03/13/2024 08:17:04 ESR (erythro cyte sediment ation rate), blood [address] [facility], [address] [place] [address], [id number], 03/13/2024 08:17:04 C reactive protein, QN, serum or plasma [address] [facility], [address] [place] [address], [id number], 03/13/2024 08:17:04 Referral None recorded . Procedures None recorded . Surgeries None recorded . Imaging DEXA - schedule with next office visit 2023 024 [email or web address] [facility] Bone Density [facility], [address] [facility], [place], [address], 03/06/2024 11:58:09 Medication Orders methotre xate sodium 2.5 mg tablet 2024 [facility], [address], [place], [address], 09/17/2024 15:13:43 folic acid 1 mg tablet 2024 025 [facility], [address], [place], [address], 09/17/2024 15:13:41 alendron ate 70 mg tablet 2024 025 [facility], [address], [place], [address], 09/17/2024 15:13:45 methotre xate sodium 2.5 mg tablet 2024 025 [facility], [address], [place], [address], 06/12/2024 15:30:03 folic acid 1 mg tablet 2024 025 [facility], [address], [place], [address], 06/12/2024 15:29:59 predniso ne 1 mg tablet 2024 025 [facility], [address] [place] [address], [address], [place], [address], 06/12/2024 12:18:26 alendron ate 70 mg tablet 2024 025 [facility], [address], [place], [address], 06/12/2024 15:30:06 methotre xate sodium 2.5 mg tablet 2023 024 [facility], [address], [place], [address], 03/06/2024 13:29:35 folic acid 1 mg tablet 2023 024 [facility], [address], [place], [address], 03/06/2024 13:29:39 predniso ne 5 mg tablet 2023 024 [facility], [address], [place], [address], 03/06/2024 13:30:19 alendron ate 70 mg tablet 2023 024 [facility], [address], [place], [address], 03/06/2024 13:29:37 Patient TargetsNo targets recorded. Patient Instructions Encounter Date Encounter Id Patient Instructions Last Modified By Organization Details Last Modified Time 09/17/2024 [id number] medical record request* - Send last labs. Not available 09/24/2024 08:14:31 Reason for Referral None Reported. Results Created Date Observation Date Name Description Value Unit Range Abnormal Flag Note LastModifiedBy Organization Detail LastModifiedTime 06/12/1906/12/2024 DEXA No observ ation record ed. Aleja Gooden MD [address] [place], [address], 06/17/2024 14:21:47 Result Notes Documentation Provider Name and Address Organization Details Recorded Time Dexa : [facility] ? ? [address] [facility] [address]PWSYJQ, Pamela K (id #[id number], : 1950) [address] [address] Date: 06/12/2024RE: Kaylin Walton, : 1950, PT ID #[id number] Cotto MD, I would like to thank you for referring Kaylin Walton to our practice for consultation and evaluation. I have enclosed a copy of the office evaluation for your records. Sincerely, Electronically Signed by: ALEJA GOODEN, MDProcedure DocumentationDXA Normal:Bone Densitometry Report Dual Energy X-Ray Absorptiometry (DXA)Baseline bone mineral density measurement was performed on a [employer] QDR-4500C scanner with good technique. Bilateral hip [...] ensure stability or reliability. 6. Fall prevention. [facility] 06/17/2024 14:21:47 Procedures Surgical History Date Name Laterality Status Provider Name and Address Organization Details Recorded Time DXA Normal completed ALEJA GOODEN MD [address] [place], [address], [facility] 06/12/2024 19:13:56 total replacement of hip completed [facility] 03/06/2024 11:26:14 Cardiac Surgery completed [facility] 03/06/2024 11:26:29 total replacement of hip completed [facility] 06/12/2024 11:47:41 Imaging Results Imaging Date Name Status LastModified by Organizatio n Details LastModified Time 06/12/2024 DEXA completed Aleja Gooden MD [address] [place], [address], 06/17/2024 14:21:47 Procedure Notes None recorded. Medical Equipment None Reported. Allergies Allergen ID Allergen Name Allergen Category Reaction Reaction Severity Criticality Documentation Date Start Date Code Code System Note Provider Name and Address Organization Details Recorded Time 892828 Substance with sulfonami de structure and antibacte rial mechanism of action (substanc e) medicatio n Not available Not available Not available 03/06/2024 63897 [id number] SNOMED [facility] 11:24:59 Medications Name Sig Start Date Stop [...] Not Available Not Nenita ilable Not Available Vibes active Not Available Not Available Not Available calcium 250 mg-magnesium 40 mg-D3 125 unit-zinc 3.29sm-rab-cvor tablet Take by oral route. active Not [...] Address Organization Details Last Updated DateTime 4 25497.3 8 g 21.1 kg/m2 152.4 cm 14 /min 53 /min 97 % 97 % 130 mm[Hg] 82 mm[Hg] [facility] 4 11:27:57 Date Recorded Body height Body mass index (BMI) Body weight Provider Name and Address Organization Details Last Updated DateTime 06/12/2024 148.59 cm 22.2 kg/m2 40417.98 g Haylee Mazariegos [facility] 06/12/2024 10:48:21 Date Recorded Body height Body mass index (BMI) Body weight Respiratory rate Heart rate Oxygen saturation Oxygen saturation in Arterial blood by Pulse oximetry Systolic blood pressure Diastolic blood pressure Provider Name and Address Organization Details Last Updated DateTime 148.59 cm 22 kg/m2 18179.0 8 g 14 /min 52 /min 100 % 100 % 138 mm[Hg] 90 mm[Hg] [facility] 5 11:49:21 Date Recorded Body height Body mass index (BMI) Body weight Heart rate Oxygen saturation Oxygen saturation in Arterial blood by Pulse oximetry Systolic blood pressure Diastolic blood pressure Provider Name and Address Organization Details Last Updated DateTime 148.59 cm 22.6 kg/m2 02786.1 6 g 56 /min 96 % 96 % 142 mm[Hg] 80 mm[Hg] Tara Perez [facility] 11:20:04 Social History Question Answer Notes LastModified by Organizat ion Details LastModified Time Tobacco Smoking Status Never Smoker [facility] 03/06/2024 11:25:48 What Was The Date Of Your Most Recent Tobacco Screening? 06/12/2024 Information not available 06/12/2024 Sex: Female Functional Status Question Answer Note LastModified by Organization D etails LastModified Time What is your level of alcohol consumption? None Information not available 03/06/2024 Mental Status None recorded. Family History Nothing Reported. Medical History Condition Response Emphysema N COPD N Diabetes N Bleeding Disorder N Arthritis Y Acid Reflux (GERD) N Asthma N Heart Disease N Rheumatoid Arthritis Y Hypertension Y Gynecological HistoryNo gynecological history recorded. Obstetrics History GPAL:G 0 P 0 0 0 0 Past Encounters Encounter ID Performer Location Encounter Start Date Encounter Closed Date Diagnosis/Indication Diagnosis SNOMED-CT Code Diagnosis ICD10 Code Diagnosis Note [id number] RENATE COTTO MD RHEUMATOL OGY [address] [place] [address] 03/06/2024 10:59:38 03/07/2024 04:36:32 Seropositive rheumatoid arthritis 702221124 M05.9 Diagnosed in 2021Negati ve RF , [...] mg daily- request most recent labs from [facility]- continue prednisone 5 mg daily for now- consider addition of Il-6 or TNF inhibitor Long-term current use of drug therapy 223366999 Z79.899 - labs again in a month [...] while taking methotrexa te. Polymyalgi a rheumatica 34994696 M35.3 - still on prednisone 5 mg daily- will try to wean this as able Osteoporosis 46362985 M8 1.0 DEXA ( 2) showed osteopenia [...] today to be done with next visit [id number] RENATE COTTO MD RHEUMATOL OGY [address] [place] [address] 06/12/2024 10:30:02 06/13/2024 05:32:43 Seropositive rheumatoid arthritis 567036629 M05.9 Diagnosed in 2021Negati ve RF , [...] inhibitor Long-term current use of drug therapy 677776610 Z79.899 - labs again in a month [...] while taking methotrexa te. Polymyalgi a rheumatica 34970421 M35.3 - still on prednisone 5 mg daily- will try to wean this as able Osteoporosis 06442627 M8 1.0 DEXA ( 2) showed osteopenia [...] diet-She got her repeat DEXA today 06/12/2024 [id number] ALEJA GOODEN MD BONE DENSITY [address] [place] [address] 06/12/2024 10:29:15 06/12/2024 10:48:44 Osteopenia 461018840 M85.89 [id number] RENATE COTTO MD RHEUMATOL OGY [address] [place] [address] 09/17/2024 11:11:27 09/20/2024 04:30:06 Seropositive rheumatoid arthritis 469945085 M05.9 Diagnosed in 2021Negati ve RF , +Anti-CCP Ab 43, Negative ALEX IFA (done by [...] Swollen joint count 0. Tender joint count 0. Good prognosis -Continue methotrexa te 20 mg weekly (8 tablets)- continue folic acid 1 mg daily- consider addition of Il-6 or TNF inhibitor Long-term current use of drug therapy 794532862 Z79.899 - labs every 3 months- she will stay on [...] while taking methotrexa te. Polymyalgi a rheumatica 03033287 M35.3 - still on prednisone 1 mg daily- will try to wean this as able Osteoporosis 57099566 M8 1.0 DEXA (06/12/2024 ) showed normal bone density in the lumbar spine and left forearm. This is improved compared to her last DEXA 2 years ago with osteopenia in the left femoral neck with worse T-score of-1.3. Normal bone density in lumbar spine and total hip. FraX score suggested 10 year hip fracture risk of 3.1%. - Continue alendronat e 70mg weekly (started 11/2021)- Continue Vitamin D supplement ation with 2,000 IU daily- Continue calcium in diet- repeat DEXA 06/13/2026 Health Concerns Section Related Observation LastModified by Organization Detai ls LastModified Time None Recorded Concern Status LastModified by Organization Details LastModified Time None Recorded Advance Directives Directive None Recorded Payers Insurance Date Sequence Insurance Name Policy Number Policy Foreman Covered Member ID Foreman Member ID Guarantor Name 03/06/2024 3 [place] Kaylin Walton [id number] Kaylin Walton 09/20/2024 1 [employer] (MEDICARE REPLACEMENT/ ADVANTAGE - PPO) Kaylin Walton [id number] Kaylin Walton 03/06/2024 1 [employer] (PPO) Kaylin Walton [id number] Kaylin Walton 09/20/2024 2 () Kaylin Walton [id number] Kaylin Walton Notes Date Note Type Note [...] a cerebral aneurysm coiled by Dr. Maldonado. [facility] last week had labs done, but these are not available at the appointment. RENATE COTTO MD [address] [place], [address], [facility] 03/06/2024 12:38:19 06/12/2024 text/html Kaylin Walton is [...] coiled by Dr. Maldonado. RENATE COTTO MD [address] [place] [address], [phone], [facility] 06/12/2024 13:12:31 09/17/2024 text/html Kaylin Walton is a 74 yo [...] coiled by Dr. Maldonado. RENATE COTTO MD [address] [place] [address], [phone], [facility] 09/19/2024 11:12:04 OBGyn Episode No OBEpisode recorded.
== END 2024-10-01 23:59 | disposition home or self-care (01) ==
LOC: LAB 11:02
PROVIDERS: PCP Internal Medicine; Visit Provider Allergy & Immunology
DX: H10.13 Acute atopic conjunctivitis, bilateral (principal); J30.89 Other allergic rhinitis
CPT/HCPCS: 36415; 82785; 86003

== ENCOUNTER 2024-12-03 15:13 | Outpatient (CLI) | payer MEDICARE, OTHER, SELFPAY ==
[2024-12-03 14:02] LABS: Hematocrit 33.9 % (37.0-47.0); Hemoglobin 11.0 g/dL (12.2-16.2); Immature Granulocytes % 0.5 %; Mean Corpuscular HGB Conc 32.4 g/dL (31.8-35.4); Mean Corpuscular Hemoglobin 32.5 pg (27.0-31.2); Mean Corpuscular Volume 100.3 fl (81-99); Nucleated Red Blood Cells % 0 %; Platelet Count 223 K/mm3 (142-424); Red Blood Count 3.38 M/mm3 (4.20-5.40); Red Cell Distribution Width-SD 52.0 fL; White Blood Count 6.4 K/mm3 (4.8-10.8)
[2024-12-03 14:47] LABS: Alanine Aminotransferase 29 U/L (12-78); Albumin Level 4.6 g/dl (3.5-5.0); Albumin/Globulin Ratio 1.9 (1.1-1.8); Alkaline Phosphatase 41 U/L (38-126); Anion Gap 15.2 mEq/L (5-15); Aspartate Amino Transferase 40 U/L (14-36); Bilirubin,Total 0.7 mg/dl (0.2-1.3); Blood Urea Nitrogen 22 mg/dl (7-17); Calcium 9.7 mg/dl (8.4-10.2); Carbon Dioxide 28 mmol/L (22.0-30.0); Chloride 97 mmol/L (98-107); Cholesterol 182 mg/dl (140-200); Creatinine,Serum 0.80 mg/dl (0.52-1.04); Estimated Glomerular Filt Rate 70 ml/min (>60); GFR (African American) 85 ML/MIN (>60); Globulin 2.4 g/dL (1.3-3.2); Glucose 74 mg/dl (74-100); HDL Cholesterol 66 mg/dl (40-60); Potassium 4.2 mmoL/L (3.5-5.1); Sodium 136 mmol/L (136-145); Total Protein,Serum 7.0 g/dl (6.3-8.2); Triglycerides 154 mg/dl (30-150)
--- OUTSIDE RECORDS SUMMARY | 2024-12-03 15:14 | XMS_ITS | Clinical Summary ---
Author Organization [employer] ([place], [place], [place], [place]) Address [address] [place] [address] Care Team Providers Care Appraiser Real Estate Name Role Phone Carlton Wyatt MD Primary Care Provider [phone] Allergies Active Allergy Reactions Criticality Noted Date Comments Sulfa (Sulfonamide Antibiotics) Medium 02/19 Medications calcium carbonate 600mg (Caltrate) 600 mg calcium (1,500 mg) Tab Take 1 tablet (1,500 mg total) by mouth daily. Active aspirin 81 MG EC tablet Take 1 tablet (81 mg total) by mouth daily. Active alendronate (FOSAMAX) 70 MG tablet Take 1 tablet (70 mg total) by mouth. 02/02/2023 Active folic acid (FOLVITE) 1 MG tablet Take 1 tablet (1,000 mcg total) by mouth daily. 02/02/2023 Active glucosamine-cho ndroitin 500-400 mg Cap Take 1 capsule by mouth daily. Active levothyroxine (SYNTHROID, LEVOTHROID) 75 MCG tablet Take 1 tablet (75 mcg total) by mouth daily. Active LORazepam (ATIVAN) 1 MG tablet Take 1 tablet (1 mg total) by mouth nightly. Active linaCLOtide (LINZESS) 145 mcg Cap Take 1 capsule (145 mcg total) by mouth every morning before breakfast. Active methotrexate 2.5 MG tablet Take 6 tablets (15 mg total) by mouth once a week. On Fridays02/02/2023 Active metoprolol succinate (TOPROL-XL) 25 MG 24 hr tablet Take 1 tablet (25 mg total) by mouth daily. Active potassium chloride (MICRO-K) 10 mEq CR capsule Take 1 capsule (10 mEq total) by mouth daily. Active rosuvastatin (CRESTOR) 20 MG tablet Take 1 tablet (20 mg total) by mouth daily. Active senna (SENOKOT) 8.6 mg tablet Take 1 tablet (8.6 mg total) by mouth daily. Active telmisartan (MICARDIS) 40 MG tablet Take 1 tablet (40 mg total) by mouth daily. Active Active Problems Problem Noted Date Diagnosed Date Basilar artery aneurysm 04/05/2023 Transient speech disturbance 04/05/2023 Secondary hypertension 04/05/2023 Mixed hyperlipidemia 04/05/2023 Suspected cerebrovascular accident (CVA) 023 Family History Medical History Relation Name Comments Heart disease Father Heart disease Mother Relation Name Status Comments Father Mother Social History Tobacco Use Types Packs/Day Years Used Date Smoking Tobacco: Never Smokeless Tobacco: Never Tobacco Cessation:Counseling Given: Not Answered Alcohol Use Standard Drinks/Week Comments Never 0 (1 standard drink = 0.6 oz pur e alcohol) PRAPARE - Transportation Answer Date Re corded In the past 12 months, has l ack of transportation kept you from medical appointments or from getting medications? No 03/04/2023 Lack of Transportation (Non-Medical) Not on file 03/04/2023 Food Insecurity Answer Date Recorded Food run out past 12 months Not on file 05/22 Food did not last past 12 months Not on file 06/01/2023 Employment Answer Date Recorded Help finding and keeping a job Not on file 0 06/01/2023 Family and Community Support Answer Carlton e Recorded Help with Day to Day Activities Not on file 06/01/2023 Feeling Lonely or Isolated Not on file 06/01 Educational Attainment Answer Date Antwon rded Speak language other than Portuguese at home Not on file 06/01/2023 Want help with school or training Not on file 06/01/2023 Substance Use Answer Date Recorded Used prescription meds for non-medical reasons N ot on file 06/01/2023 Used illegal drugs past 12 months Not on file 06/01/2023 Comments No Sex and Gender Information Value Date Recorded Sex Assigned at Not on file Legal Sex Female 7:17 PM CDT Gender Identity Not on file Sexual Orientation Not on file Last Filed Vital Signs Vital Sign Reading Time Taken Comments Blood Pressure 160/92 04/05/2023 11:26 AM EST Pulse 57 04/05/2023 11:26 AM EST Temperature 36.8 C (98.2 F) 03/06/2023 1:56 PM EDT Respiratory Rate 16 03/06/2023 1:55 PM EDT Oxygen Saturation 98% 03/06/2023 1:55 PM EDT Inhaled Oxygen Concentration - - Weight 48.5 kg (107 lb) 04/05/2023 11:26 AM EST Height 152.4 cm (5') 04/05/2023 11:26 AM EST Body Mass Index 20.9 04/05/2023 11:26 AM EST Plan of Treatment Health Maintenance Due Date Last Done Comments CT Colonography 1950 Colonoscopy 1950 Colorectal Cancer Screening 1950 DXA SCAN 1950 FOBT/FIT 1950 Fit-DNA (Cologuard) 1950 Sigmoidoscopy 1950 Depression Screening (12+) 1963 Hepatitis C Screening 1969 DTAP/TDAP/TD VACCINES (1 - Tdap) 1970 Shingles Vaccine (Zoster) (1 of 2) 1970 Breast Cancer Screening 1991 Respiratory Syncytial Virus (RSV) Adult or (1 - Risk 60-74 years 1-dose series) 2011 Pneumococcal 50+ years (2 of 2 - PPSV23) 04/11/2016 02/15/2016 COVID-19 VACCINE (6 - 2023-2 5 season) 2024 03/16/2022, 12/14/2021, 03/24/2021, Additional history exists Tobacco Cessation Counseling and Screening (12+) 03/04/2024 03/04/2023 Falls Risk Screening 05/22/2024 Influenza Vaccine (#1) 2025 02/15/2016 Insurance [employer] MEDICARE PPO Advance Directives For more information, please contact: [phone] * Full Code (Latest Code Status on File) Date Activated Date Inactivated Comments 03/04/2023 5:43 PM 03/06/2023 4:53 PM -Attempt R esuscitation if person has no pulse and is not breathing. -If no pulse or not breathing attempt CPR/CODE. -Call Rapid Response if patient is in distress. Care Teams Appraiser Real Estate Relationship Specialty Start Date End Date Carlton Wyatt MD [address] [place] [address] PCP - General General Internal Medicine 03/04/23
--- OUTSIDE RECORDS SUMMARY | 2024-12-03 15:14 | XMS_ITS | Referral Summary ---
Author Organization [employer] ([place], [place], [place], [place]) Address [address] [place] [address] Care Team Providers Care Warper Tender Name Role Phone Carlton Wyatt MD Primary Care Provider Allergies Active Allergy Reactions Criticality Noted Date [...] hyperlipidemia 04/05/2023 Suspected cerebrovascular accident (CVA) 023 Social History Tobacco Use Types Packs/Day Years [...] Date Antwon rded Speak language other than Latvian at home Not on file 06/01/2023 Want [...] 04/05/2023 11:26 AM EST Plan of Treatment Not on file Insurance [employer] MEDICARE PPO [facility] Advance Directives For more information, please contact: [phone] * Full Code (Latest Code Status on File) Date Activated Date Inactivated Comments 03/04/2023 5:43 PM 03/06/2023 4:53 PM -Attempt R esuscitation if person has no pulse and is not breathing. -If no pulse or not breathing attempt CPR/CODE. -Call Rapid Response if patient is in distress. Care Teams Warper Tender Relationship Specialty Start Date End Date Carlton Wyatt MD [address] [place] [address] [place] [address] PCP - General General Internal Medicine 03/04/23
--- OUTSIDE RECORDS SUMMARY | 2024-12-03 15:15 | XMS_ITS | Clinical Summary ---
Author Organization [facility] Address [address] [place] [address] Care Team Providers Care Top Cager Name Role Phone Carlton Wyatt MD Primary Care Provider [phone] Suzanne Obrien POLICY SPECIALIST Unavailable [phone] Dudley Tena MD Unavailable [phone] Dee Diamond RN Unavailable Unavailable Suzanne Obrien POLICY SPECIALIST Unavailable Allergies Active Allergy Reactions Criticality Noted Date Comments Sulfa Drugs Unknown - Patient st ates they do not know rxn details Low 01/17/2014 Medications Probiotic Product (PROBIOTIC PO) Take by mouth 2 (two) times a day. Active potassium chloride CR (Klor-Con) 10 MEQ ER tablet Take 1 tablet (10 mEq) by mouth 1 (one) time each day. Do not crush, chew, or split. Active levothyroxine (Synthroid, Levoxyl) 75 MCG tablet Take 1 tablet (75 mcg) by mouth 1 (one) time each day before breakfast. Active metoprolol succinate XL (Toprol-XL) 25 MG 24 hr tablet Take 1 tablet (25 mg) by mouth 1 (one) time each day. Do not crush or chew. Active rosuvastatin (Crestor) 20 MG tablet Take 1 tablet (20 mg) by mouth every night. Active CALCIUM-MAGNESI UM-ZINC PO Take by mouth 1 (one) time each day. Active LORazepam (Ativan) 1 MG tablet Take 0.5 tablets (0.5 mg) by mouth 2 (two) times a day if needed for anxiety. 2 Active alendronate (Fosamax) 70 MG tablet Take 1 tablet (70 mg) by mouth once a week. Takes on Monday Active brimonidine-minnie olol (Combigan) 0.2-0.5 % ophthalmic solution Administer 1 drop into both eyes every 12 (twelve) hours. Active folic acid (Folvite) 1 MG tablet Take 1 tablet (1 mg) by mouth 1 (one) time each day. Active Procto-Med HC 2.5 % rectal cream Insert 1 Application into the rectum if needed. 4 Active methotrexate 2.5 MG tablet Take 8 tablets (20 mg total) by mouth every 7 (seven) days. Takes on Monday 4 Active predniSONE (Deltasone) 5 MG tablet Take 1 tablet (5 mg) by mouth if needed (Arthritis Symptoms). 4 Active oxyCODONE (Roxicodone) 5 MG immediate release tablet Take 1 tablet (5mg) every 4-6 hours as needed for breakthrough pain 10 tablet 4 Active Additional Information Patient not taking.Reported on 06/03/2024 gabapentin (Neurontin) 100 MG capsule Take 1 capsule (100 mg) by mouth 3 (three) times a day. If this medication makes you drowsy you may take it only at bedtime 30 capsule 4 Active Additional Information Patient not taking.Reported on 06/03/2024 acetaminophen (Tylenol Extra Strength) 500 MG tablet Take 2 tablets (1,000 mg) by mouth every 8 (eight) hours. 100 tablet 4 Active traMADol (Ultram) 50 MG tablet Take 1 or 2 tablets every 4-6 hours as needed for moderate pain 56 tablet 4 Active Active Problems Problem Noted Date Diagnosed Date Osteoarthritis of left hip, unspecified osteoart hritis type 04/16/2024 Spinal stenosis of lumbar re gion with neurogenic claudication 10/13/2021 Overview (10/13/2021): Added automatically from request for surgery [id number] Primary osteoarthritis of one hip, left 05/16/20 22 Overview (10/04/2021): Added automatically from request for surgery [id number] HTN (hypertension) 07/02/2021 HLD (hyperlipidemia) 07/02/2021 CAD (coronary artery disease) 07/02/2021 Hypothyroidism 07/02/2021 SMOOTH (obstructive sleep apnea) 07/02/2021 Gastroesophageal reflux disease 07/02/2021 Impaired tolerance of activity 07/02/2021 Hip pain 11/27/2019 Resolved Problems Problem Noted Date Diagnosed Date Resolved Date 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 22 07/14/2021 Cervical myelopathy 06/21/2021 07/14/19 22 Overview (06/21/2021): Added automatically from request for surgery [id number] Family History Medical History Relation Name Comments Heart attack Father Rheumatologic disease Maternal Grandfather Remove Back pain/problems Mother Javi Cohen Osteoporosis Mother Javi Cohen Rheumatologic disease Mother Javi Cohen Arthritis Other 1 Prostate cancer Other 2 Osteoporosis Other 3 Conversions - Other Other 4 Heart tr ouble Anesthesia problems Neg Hx Malig Hyperthermia Neg Hx Relation Name Status Comments Father Maternal Grandfather Remove Mother Javi Cohen Other 1 Other 2 Other 3 Other 4 Social History Tobacco Use Types Packs/Day Years Used Date Smoking Tobacco: Never Smokeless Tobacco: Never Tobacco Cessation:Counseling Given: Not Answered Alcohol Use Standard Drinks/Week Comments Never 0 (1 standard drink = 0.6 oz pur e alcohol) PHQ-2 Answer Date Recorded Patient Health Questionnaire-2 Score 0 02/05/2024 Comments No Sex and Gender Information Value Date Recorded Sex Assigned at Not on file Legal Sex Female 7:46 PM EDT Gender Identity Female 07/12/2021 9:39 AM EST Sexual Orientation Not on file Last Filed Vital Signs Vital Sign Reading Time Taken Comments Blood Pressure 144/76 06/03/2024 9:48 AM EST Pulse 56 06/03/2024 9:48 AM EST Temperature 36.9 C (98.4 F) 04/16/2024 2:45 PM EST Respiratory Rate 18 04/16/2024 2:45 PM EST Oxygen Saturation 96% 06/03/2024 9:48 AM EST Inhaled Oxygen Concentration - - Weight 52 kg (114 lb 10.2 oz) 06/03/2024 9:48 AM EST Height 152.4 cm (5') 06/03/2024 9:48 AM EST Body Mass Index 22.39 06/03/2024 9:48 AM EST Plan of Treatment Upcoming Encounters Date Type Department Care Team (Late st Contact Info) Description 08/26/2025 11:30 AM EDT Ovarian Cancer Screening [facility] Gynecology [address] [facility] [place] [phone] Health Maintenance Due Date Last Done Comments [facility]-Bone Density Scan 1950 [facility]-Hepatitis C Screening 1950 [facility]-Medicare Annual Wellness (AWV) 1950 [facility]-/Child/Adol SDOH Screenings 1950 [facility]- SDOH Screenings 1969 [facility]-Adult SDOH Screenings 1969 [facility]-DTaP,Tdap,and Td Vaccines (1 - Tdap) 1970 [facility]-Zoster Vaccines (1 of 2) 1970 CT Colonography 01/15/1996 Colonoscopy 01/15/1996 FIT-DNA 01/15/1996 FIT 01/15/1996 FOBT 01/15/1996 Sigmoidoscopy 01/15/1996 [facility]-Colorectal Cancer Screening 01/15/1996 [facility]-RSV Vaccine: 60+ Years or (1 - Risk 60-74 years 1-dose series) 2011 [facility]-Pneumococcal Vaccine: 50+ Years (2 of 2 - PPSV23) 02/14/2017 02/15/2016 [id number] Vaccine (8 - Moderna risk 2023- season) 2025 07/10/2024, 03/27/2023, 03/16/2022, Additional history exists [facility]-Influenza Vaccine (#1) 01/20/202507/09, 03/27/2023, 01/20/2021, Additional history exists [facility]-Depression Screening 02/04/2025 02/05/2024 [facility]-Breast Cancer Screening 12/31/2025 0806/2023, 01/01/2024, 09/05/2022, Additional history exists HPV Vaccines Aged Out No longer eligi ble based on patient's age to complete this topic [facility]-HIB Vaccines Aged Out No longer e ligible based on patient's age to complete this topic [facility]-Hepatitis A Vaccines Aged Out No longer eligible based on patient's age to complete this topic [facility]-IPV Vaccines Aged Out No longer e ligible based on patient's age to complete this topic [facility]-Rotavirus Vaccines Aged Out No lo nger eligible based on patient's age to complete this topic Goals Goal Patient Goal Type Associated Problems Recent Progress Patient-Stated? Author Autogenerat ed Goal Care Plan Autogenerated Problem No [employer] Implanted Type Area Trading Manager Device Identifier Shelf Expiration Date Model / Serial / Lot Knee Vanguard1 Cervical Preservon 7mm - [id number] - [id number] Implanted:Qty: 1 on 07/13/2021 by Dudley Tena MD at [id number] 04/07/2026 [id number] / [id number] / [id number] Graft Vivigen 1cc - [id number] - [id number] Implanted:Qty: 1 on 07/13/2021 by Dudley Tena MD at [facility]-[id number] 06/16/2022 [id number] / [id number] / [id number] Screw Retainer 3.5mm X 14mm - [id number] Implanted:Qty: 2 on 07/13/2021 by Dudley Tena MD at [facility]-[id number] 07/13/2022 [id number] / / Nut Retainer - [id number] Implanted:Qty: 2 on 07/13/2021 by Dudley Tena MD at [facility]-[id number] 07/13/2022 [id number] / / One Level Plate, 12mm - [id number] Implanted:Qty: 1 on 07/13/2021 [facility]-[id number] 07/13/2022 [id number] / / Self Drilling Screw 14mm - [id number] Implanted:Qty: 4 on 07/13/2021 by Dudley Tena MD at [facility] [id number] 07/13/2022 [id number] / / Chg Stem Anthology Ho Por Pl H - [id number] Implanted:Qty: 1 on 04/16/2024 by Refugio Do MD at [facility] Left: Hip [employer]-[id number] 08/27/2033 [id number] / / [id number] Chg Head Oxinium Fem 05/04 32m - [id number] Implanted:Qty: 1 on 04/16/2024 by Refugio Do MD at [facility] Left: Hip [employer]-[id number] 03/26/2032 [id number] / / [id number] Chg Liner R3 0 Deg Xlpe Acet 3 - [id number] Implanted:Qty: 1 on 04/16/2024 by Refugio Do MD at [facility] Left: Hip [id number] 12/03/2026 [id number] / / [id number] Chg Screw Ref Spher Head 25mm - [id number] Implanted:Qty: 1 on 04/16/2024 by Refugio Do MD at [facility] Left: Hip [id number] 10/20/2033 [id number] / / [id number] Chg Shell R3 3 Hole Acet 50mm - [id number] Implanted:Qty: 1 on 04/16/2024 by Refugio Do MD at [facility] Left: Hip [employer]-[id number] 10/30/2033 [id number] / / [id number] Additional Health Concerns Active Problems Noted Date Diagnosed Date Autogenerated Problem 09/10/2024 Insurance [facility] MEDICARE Advance Directives * Full Code (Latest Code Status on File) Date Activated Date Inactivated Comments 04/16/2024 8:45 AM 04/16/2024 5:10 PM Question Answer Comments Patient has decision-making capacity? Yes * Full Code Date Activated Date Inactivated Comments 07/13/2021 7:47 AM 07/14/2021 3:20 PM Question Answer Comments Patient has decision-making capacity? Yes Care Teams Top Cager Relationship Specialty Start Date End Date Carlton Wyatt MD [address] [place] [address] [address] [place] [address] PCP - General 10/02/20 Suzanne Obrien APRN [address] [place] [address] Nurse Practitioner Neurosurgery 04/30/21 Dudley Tena MD [address] [place] [address] Surgeon Neurosurgery 05/12/21 Dee Diamond RN Registered Nurse 07/13/21 Suzanne Obrien APRN [address] [place] [address] Nurse Practitioner Neurosurgery 08/24/21
[2024-12-03 15:17] LABS: Thyroid Stimulating Hormone 0.31 uIU/mL (0.465-4.68)
== END 2024-12-03 23:59 | disposition home or self-care (01) ==
LOC: LAB.DROPOF 15:13
PROVIDERS: PCP Internal Medicine; Visit Provider Internal Medicine
DX: I12.9 Hypertensive chronic kidney disease with stage 1 through stage 4 chronic kidney disease, or unspecified chronic kidney disease (principal); E78.2 Mixed hyperlipidemia; N18.9 Chronic kidney disease, unspecified; E03.9 Hypothyroidism, unspecified
CPT/HCPCS: 80053; 80061; 84443; 85025

== ENCOUNTER 2024-12-11 08:31 | Outpatient (CLI) | payer MEDICARE, OTHER, SELFPAY ==
--- OUTSIDE RECORDS SUMMARY | 2024-10-21 12:45 | XMS_ITS | Encounter Summary ---
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 Role Phone Carlton Wyatt MD Primary Care Provider [phone] Reason for Referral * MRI/CAT/PET Scan (Routine) - Closed Specialty Diagnoses / Procedures Referred By Jose Referred To Contact Radiology Diagnoses Basilar artery aneurysm Procedures MRI Angiogram Head With & Without Contrast Canelo Maldonado MD [address] [place] [address] Phone: tel: fax: [facility] [address] [place] [address] Phone: tel: Referral ID Status Reason Start Date Expiration Date Visits Re quested Visits Authorized [id number] Closed 10/31/2023 10/30/2024 1 1 Reason for Visit * MRI/CAT/PET Scan (Routine) - Closed Specialty Diagnoses / Procedures [facility] Referred To Contact Radiology Diagnoses Basilar artery aneurysm Procedures MRI Angiogram Head With & Without Contrast Canelo Maldonado MD [address] [place] [address] Phone: tel: fax: [facility] MRI [address] [place] [address] Phone: tel: Referral ID Status Reason Start Date Expiration Date Visits Re quested Visits Authorized [id number] Closed 10/31/2023 10/30/2024 1 1 Encounter Details Date Type Department Care Team (Late st Contact Info) Description 10/21/2024 12:45 PM EDT - 10/21/2024 11:59 PM EDT Hospital Encounter [facility] MRI [address] [facility] [place] [address] Canelo Maldonado MD [address] [place] [address] Basilar artery aneurysm Discharge Disposition: Home or Self Care Social History Tobacco Use Types Packs/Day Years Used Date Smoking Tobacco: Never Passive Smoke Exposure: Never Smokeless Tobacco: Never Alcohol Use Standard Drinks/Week Comments Never 0 (1 standard drink = 0.6 oz pur e alcohol) Rare AUDIT-C Answer Date Recorded Q1: How often do you have a drink containing alcohol? Never 04/24/2023 Q2: How many drinks containi ng alcohol do you have on a typical day when you are drinking? Patient does not drink Q3: How often do you have si x or more drinks on one occasion? Never 04/24/2023 Abuse Screen Answer Date Recorded Feels Unsafe at Home or Work/School no 04/24/2023 Feels Threatened by Someone no 08/2022 Does Anyone Try to Keep You From Having Contact with Others or Doing Things Outside Your Home? no 04/24/2023 Physical Signs of Abuse Present no 04/24/2023 Housing Stability Answer Date Recorded Current Living Arrangements home 09/2022 Potentially Unsafe Housing Conditions none 04/25/2023 Disabilities Answer Date Recorded Difficulty Concentrating, Remembering or Making Decisions no 04/24/2023 Difficulty Managing Errands Independently no 04/24/2023 Education Answer Date Recorded Help with school or training? Not on file Preferred Language Qatari 04/25/2023 Comments No Sex and Gender Information Value Date Recorded Sex Assigned at Not on file Legal Sex Female 1:49 PM EDT Gender Identity Not on file Sexual Orientation Not on file Occupation Industry Job Start Date Job End Date retired Not on file Not on file Not on file documented as of this encounter Medications at Time of Discharge alendronate (FOSAMAX) 70 MG tablet Take 1 tablet by mouth Every 7 (Seven) Days. aspirin 81 MG chewable tablet Chew 1 tablet Daily. brimonidine-timolo l (COMBIGAN) 0.2-0.5 % ophthalmic solution Administer 1 drop to both eyes Every 12 (Twelve) Hours. calcium carbonate (OS-AAMIR) 600 MG tablet Take 1 tablet by mouth Daily. Calcium Polycarbophil (FIBER-CAPS PO) Take 2 capsules by mouth Daily. folic acid (FOLVITE) 1 MG tablet Take 1 tablet by mouth Daily. glucosamine-chondr oitin 500-400 MG capsule capsule Take 1 capsule by mouth Daily. levothyroxine (SYNTHROID, LEVOTHROID) 75 MCG tablet Take 1 tablet by mouth Daily. linaclotide (LINZESS) 145 MCG capsule capsule Take 1 capsule by mouth. LORazepam (ATIVAN) 1 MG tablet Take 1 tablet by mouth Every 8 (Eight) Hours As Needed for Anxiety. metoprolol succinate XL (TOPROL-XL) 25 MG 24 hr tablet Take 1 tablet by mouth Daily. potassium chloride (MICRO-K) 10 MEQ CR capsule Take 1 capsule by mouth Daily. Probiotic Product (FlowBelow Aero PO) Take by mouth. 1.5 BILLION CELL CAPSULE TAKE DIRECTED rosuvastatin (CRESTOR) 20 MG tablet Take 1 tablet by mouth Daily. Three times per week senna 8.6 MG tablet Take 2 tablets by mouth As Needed for Constipation. telmisartan (MICARDIS) 40 MG tablet Take 1 tablet by mouth Daily. traMADol (ULTRAM) 50 MG tablet Take 1 tablet by mouth Every 6 (Six) Hours As Needed. estradiol (ESTRACE VAGINAL) 0.1 MG/GM vaginal creamIndications:V aginal atrophy Insert 2-3 gm intravaginally 2 times per week 1 each 1 5 fluconazole (Diflucan) 150 MG tabletIndications: Acute vaginitis Take 1 tablet by mouth Daily. Take once, then again 3 days later 2 tablet 4 methotrexate 2.5 MG tabletIndications: Rheumatoid arthritis of multiple sites without rheumatoid factor Take 6 tablets by mouth 1 (One) Time Per Week. 24 tablet documented as of this encounter Plan of Treatment Upcoming Encounters Date Type Department Care Team (Late st Contact Info) Description 01/06/2025 11:10 AM EDT Office Visit [facility] [address] [place] [address] Samreen Egan MD [address] [facility] [address] [place] [address] 01/06/2025 12:40 PM EDT Appointment [facility] [address] [place] [address] documented as of this encounter Procedures Procedure Name Priority Date/Time Associated Diagnosis Comments MRI ANGIOGRAM HEAD W WO CONTRAST Routine 10/21/2024 1:58 PM EDT Basilar artery aneurysm documented in this encounter Results * MRI Angiogram Head With & Without Contrast (10/21/2024 1:58 PM EDT) Anatomical Region Laterality Modality Head, Neck N/A Magnetic Resonan ce 10/21/2024 6:56 PM EDT Impressions 10/21/2024 6:59 PM EDT Stable appearance of the basilar artery tip aneurysm post coiling Electronically Signed: Ramirez Combs MD 10/21/2024 6:59 PM EDT Workstation ID: [id number] Narrative 10/21/2024 6:59 PM EDT MRI ANGIOGRAM HEAD W WO CONTRAST Date of Exam: 10/21/2024 1:19 PM EDT Indication: BASILAR ARTERY ANEURYSM. Comparison: 10/31/2023 Technique: Routine 3-D yefu-ki-dcfajy gradient echo imaging was obtained of the head before and after the uneventful administration of 10 cc Multihance. Findings: The visualized extracranial internal carotid arteries are normal. The intracranial segments of the internal carotid arteries are normal. The carotid termini are normal. The visualized branches of the anterior and middle cerebral arteries are normal. The left vertebral artery is dominant. Both vertebral arteries supply the basilar artery. Prior coiling of a basilar artery aneurysm the basilar artery tip measures 0.4 cm AP which is essentially stable compared with the prior study. The posterior cerebral arteries arise from the basilar artery. Procedure Note Ramirez Combs MD - 10/21/2024 MRI ANGIOGRAM HEAD W WO CONTRAST Date of Exam: 10/21/2024 1:19 PM EDT Indication: BASILAR ARTERY ANEURYSM. Comparison: 10/31/2023 Technique: Routine 3-D kcej-mj-eiedqn gradient echo imaging was obtainedof the head before and after the uneventful administration of 10 ccMultihance. Findings: The visualized extracranial internal carotid arteries arenormal. The intracranial segments of the internal carotid arteries arenormal. The carotid termini are normal. The visualized branches of theanterior and middle cerebral arteries are normal. The left vertebral artery is dominant. Both vertebral arteries supply thebasilar artery. Prior coiling of a basilar artery aneurysm the basilarartery tip measures 0.4 cm AP which is essentially stable compared withthe prior study. The posterior cerebral arteries arise from the basilar artery. IMPRESSION: Stable appearance of the basilar artery tip aneurysm post coiling Electronically Signed: Ramirez Combs MD 10/21/2024 6:59 PM EDT Workstation ID: [id number] Canelo Maldonado MD IM MRI ORDERABLES Final Res ult documented in this encounter Visit Diagnoses Diagnosis Basilar artery aneurysm Cerebral aneurysm, nonruptured documented in this encounter Administered Medications Inactive Administered Medications - up to 3 most recent administrations Medication Order MAR Action Action Date Dose Rate Site gadobenate dimeglumine (MULTIHANCE) injection 10 mL 10 mL, Intravenous, Once in Imaging, On Mon10/21/24 at 1400, For 1 dose, Vesicant; admin as rapid bolus; flush with 5 mL NS after admin or 20 mL for renal or aortoiliofemoral vasculature Given 10/21/2024 1:58 PM EDT 9.6 mL documented in this encounter Care Teams Valve Mechanic Relationship Specialty Start Date End Date Carlton Wyatt MD [address] [facility] [address] [place] [address] PCP - General 07/01/15 documented as of this encounter
--- OUTSIDE RECORDS SUMMARY | 2024-10-21 15:30 | XMS_ITS | Encounter Summary ---
Author Organization [facility] Address [address] [place] [address] Care Team Providers Care Billet Bed Operator Name Role Phone Carlton Wyatt MD Primary Care Provider [phone] Reason for Referral * MRI/CAT/PET Scan (Routine) - Pending Review Specialty Diagnoses / Procedures Referred By Jose guerrier Referred To Contact Radiology Diagnoses Basilar artery aneurysm Procedures MRI Angiogram Head With & Without Contrast Canelo Maldonado MD [address] [facility] [address] [place] [address] Phone: tel: fax: Referral ID Status Reason Start Date Expiration Date V isits Requested Visits Authorized [id number] Pending Review 10/21/2024 01/20/2026 1 1 Reason for Visit * Reason Comments Follow-up F/U in 1 year with Bob RA. Basilar artery aneurysm. Headache Encounter Details Date Type Department Care Team (Late st Contact Info) Description 10/21/2024 3:30 PM EDT Office Visit [facility] NEUROSURGERY [address] [facility] [address] [place] [id number] Canelo Maldonado MD [address] [facility] [address] [place] [address] Basilar artery aneurysm (Primary Dx) Social History Tobacco Use Types Packs/Day Years Used Date Smoking Tobacco: Never Passive Smoke Exposure: Never Smokeless Tobacco: Never Tobacco Cessation:Counseling Given: No Alcohol Use Standard Drinks/Week Comments Never 0 [...] or training? Not on file Preferred Language Mauritian 04/25/2023 Comments No Sex and Gender Information Value Date Recorded Sex Assigned at Not on file Legal Sex Female 1:49 PM EDT Gender Identity Not on file Sexual Orientation Not on file Occupation Industry Job Start Date Job End Date retired Not on file Not on file Not on file documented as of this encounter Last Filed Vital Signs Vital Sign Reading Time Taken Comments Blood Pressure - - Pulse - - Temperature 36.9 C (98.4 F) 10/21/2024 2:15 PM EDT Respiratory Rate - - Oxygen Saturation - - Inhaled Oxygen Concentration - - Weight 49.4 kg (108 lb 12.8 oz) 10/21/2024 2:15 PM EDT Height 152.4 cm (5') 10/21/2024 2:15 PM EDT Body Mass Index 21.25 10/21/2024 2:15 PM EDT documented in this encounter Progress Notes * Canelo Maldonado MD - 10/21/2024 3:30 PM EDT NEUROSURGERY PROGRESS NOTE Patient: Kaylin Walton : 1950 Primary Care Provider: Carlton Wyatt MD Chief Complaint: Unruptured cerebral aneurysm Subjective: This is a 74-year-old female who underwent 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 She is here today for follow-up and doing very well. She denies any issues with severe headaches or strokelike symptoms. She does continue to take baby aspirin daily. Objective Vital Signs: Temperature 98.4 ??F (36.9 ??C), temperature source Temporal, height 152.4 cm (60 ), weight 49.4 kg (108 lb 12.8 oz). Physical Exam Awake, alert and oriented x 3 Opens eyes spont Pupils 3 mm rx bilat Extraocular muscles intact bilaterally Face symmetric bilaterally Tongue midline 5/5 in all 4 ext No pronator drift Current Medications: Current Outpatient Medications: aspirin 81 MG chewable tablet, Chew 1 tablet Daily., Disp: , Rfl: brimonidine-timolol (COMBIGAN) 0.2-0.5 % ophthalmic solution, Administer 1 drop to both eyes Every 12 (Twelve) Hours., Disp: , Rfl: calcium carbonate (OS-AAMIR) 600 MG tablet, Take 1 tablet by mouth Daily., Disp: , Rfl: Calcium Polycarbophil (FIBER-CAPS PO), Take 2 capsules by mouth Daily., Disp: , Rfl: estradiol (ESTRACE VAGINAL) 0.1 MG/GM vaginal cream, Insert 2-3 gm intravaginally 2 times per week,Disp: 1 each, Rfl: 1 folic acid (FOLVITE) 1 MG tablet, Take 1 tablet by mouth Daily., Disp: , Rfl: levothyroxine (SYNTHROID, LEVOTHROID) 75 MCG tablet, Take 1 tablet by mouth Daily., Disp: , Rfl: linaclotide (LINZESS) 145 MCG capsule capsule, Take 1 capsule by mouth., Disp: , Rfl: LORazepam (ATIVAN) 1 MG tablet, Take 1 tablet by mouth Every 8 (Eight) Hours As Needed for Anxiety., Disp: , Rfl: methotrexate 2.5 MG tablet, Take 6 tablets by mouth 1 (One) Time Per Week., Disp: 24 tablet, Rfl: 0 metoprolol succinate XL (TOPROL-XL) 25 MG 24 hr tablet, Take 1 tablet by mouth Daily., Disp: , Rfl: potassium chloride (MICRO-K) 10 MEQ CR capsule, Take 1 capsule by mouth Daily., Disp: , Rfl: Probiotic Product (QobliQ Group PO), Take by mouth. 1.5 BILLION CELL CAPSULE TAKE DIRECTED, Disp: , Rfl: rosuvastatin (CRESTOR) 20 MG tablet, Take 1 tablet by mouth Daily. Three times per week, Disp: , Rfl: senna 8.6 MG tablet, Take 2 tablets by mouth As Needed for Constipation., Disp: , Rfl: telmisartan (MICARDIS) 40 MG tablet, Take 1 tablet by mouth Daily., Disp: , Rfl: traMADol (ULTRAM) 50 MG tablet, Take 1 tablet by mouth Every 6 (Six) Hours As Needed., Disp: , Rfl: alendronate (FOSAMAX) 70 MG tablet, Take 1 tablet by mouth Every 7 (Seven) Days., Disp: , Rfl: fluconazole (Diflucan) 150 MG tablet, Take 1 tablet by mouth Daily. Take once, then again 3 days later, Disp: 2 tablet, Rfl: 0 glucosamine-chondroitin 500-400 MG capsule capsule, Take 1 capsule by mouth Daily., Disp: , Rfl: No current facility-administered medications for this visit. Laboratory Results: Brief Urine Lab Results None Microbiology Results (last 10 days) No results found for the last 240 hours. Diagnostic Imaging: I reviewed and independently interpreted the new imaging. 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 She has done very well and is not having any issues related to the embolization. Inreviewing her new brain MRA from today, I do not appreciate any filling into the previously treatedaneurysm. There is no evidence of any new intracranial aneurysms. As such, we will plan to have herfollow-up with me in 1 year with a new brain MRA. If it is stable at that time, we can extend her follow-up to a longer period of time. Diagnoses and all orders for this visit: 1. Basilar artery aneurysm (Primary) - MRI Angiogram Head With & Without Contrast; Future Kaylin Walton reports that she has never smoked. She has never been exposed to tobacco smoke. Shehas never used smokeless tobacco. Canelo Maldonado MD 10/21/24 14:43 EDT documented in this encounter Plan of Treatment Upcoming Encounters Date Type Department Care Team (Late st Contact Info) Description 01/06/2025 11:10 AM EDT Office Visit [facility] OBGYN [address] [place] [address] Samreen Egan MD [address] [facility] [address] [place] [id number] 01/06/2025 12:40 PM EDT Appointment [facility] [address] [place] [address] Scheduled Orders Name Type Priority Associated Diagnoses Orde r Schedule MRI Angiogram Head With & Without Contrast Imaging Routine Basilar artery aneurysm Expected: 10/22/2024, Expires: 01/21/2026 documented as of this encounter Visit Diagnoses Diagnosis Basilar artery aneurysm- Primary Cerebral aneurysm, nonruptured documented in this encounter Care Teams Billet Bed Operator Relationship Specialty Start Date End Date Carlton Wyatt MD [address] [facility] [address] [place] [address] PCP - General 07/01/15 documented as of this encounter
--- OUTSIDE RECORDS SUMMARY | 2024-12-11 08:34 | XMS_ITS | Clinical Summary ---
Author Organization [facility] ([place], [place], [place], [place]) Address [address] [place] [address] Care Team Providers Care Financial Sales Assistant Name Role Phone Carlton Wyatt MD Primary Care Provider [phone] Allergies Active Allergy Reactions Criticality Noted Date [...] Date Antwon rded Speak language other than Kenyan at home Not on file 06/01/2023 Want [...] Advance Directives For more information, please contact: [phone] * Full Code (Latest Code Status on File) Date Activated Date Inactivated Comments 03/04/2023 5:43 PM 03/06/2023 4:53 PM -Attempt R esuscitation if person has no pulse and is not breathing. -If no pulse or not breathing attempt CPR/CODE. -Call Rapid Response if patient is in distress. Care Teams Financial Sales Assistant Relationship Specialty Start Date End Date Carlton Wyatt MD [address] [place] [address] PCP - General General Internal Medicine 03/04/23
--- OUTSIDE RECORDS SUMMARY | 2024-12-11 08:35 | XMS_ITS | Clinical Summary ---
Author Organization [facility] Address [address] [place] [address] Care Team Providers Care Lawyer Probate Name Role Phone Carlton Wyatt MD Primary Care Provider [phone] Allergies Active Allergy Reactions Criticality Noted Date Comments Sulfa Antibiotics Headache Low 08/13/2020 Medications calcium carbonate (OS-AAMIR) 600 MG tablet Take 1 tablet by mouth Daily. Active LORazepam (ATIVAN) 1 MG tablet Take 1 tablet by mouth Every 8 (Eight) Hours As Needed for Anxiety. Active glucosamine-chond roitin 500-400 MG capsule capsule Take 1 capsule by mouth Daily. Active metoprolol succinate XL (TOPROL-XL) 25 MG 24 hr tablet Take 1 tablet by mouth Daily. Active potassium chloride (MICRO-K) 10 MEQ CR capsule Take 1 capsule by mouth Daily. Active alendronate (FOSAMAX) 70 MG tablet Take 1 tablet by mouth Every 7 (Seven) Days. Active folic acid (FOLVITE) 1 MG tablet Take 1 tablet by mouth Daily. Active Calcium Polycarbophil (FIBER-CAPS PO) Take 2 capsules by mouth Daily. Active telmisartan (MICARDIS) 40 MG tablet Take 1 tablet by mouth Daily. Active levothyroxine (SYNTHROID, LEVOTHROID) 75 MCG tablet Take 1 tablet by mouth Daily. Active brimonidine-timol ol (COMBIGAN) 0.2-0.5 % ophthalmic solution Administer 1 drop to both eyes Every 12 (Twelve) Hours. Active Probiotic Product (Kitchensurfing PO) Take by mouth. 1.5 BILLION CELL CAPSULE TAKE DIRECTED Active rosuvastatin (CRESTOR) 20 MG tablet Take 1 tablet by mouth Daily. Three times per week Active senna 8.6 MG tablet Take 2 tablets by mouth As Needed for Constipation. Active traMADol (ULTRAM) 50 MG tablet Take 1 tablet by mouth Every 6 (Six) Hours As Needed. Active aspirin 81 MG chewable tablet Chew 1 tablet Daily. Active linaclotide (LINZESS) 145 MCG capsule capsule Take 1 capsule by mouth. Active fluconazole (Diflucan) 150 MG tabletIndications :Acute vaginitis Take 1 tablet by mouth Daily. Take once, then again 3 days later 2 tablet 01/31/20 24 Active methotrexate 2.5 MG tabletIndications :Rheumatoid arthritis of multiple sites without rheumatoid factor Take 6 tablets by mouth 1 (One) Time Per Week. 24 tablet 02/09/20 24 Active estradiol (ESTRACE VAGINAL) 0.1 MG/GM vaginal creamIndications: Vaginal atrophy Insert 2-3 gm intravaginally 2 times per week 1 each 1 07/08/19 25 Active Active Problems Problem Noted Date Diagnosed Date Generalized osteoarthrosis, involving multiple s ites 10/03/2023 Assessment & Plan (10/03/2023 1:38 PM EDT): She has had a fusion of her cervical spine in 06/23/[address] [facility] without rheumatoid factor 10/02/2023 Assessment & Plan (10/03/2023 1:57 PM EDT): Dx 2021 Dr Marin Negative RF , Positive Anti-CCP Ab 43, Negative ALEX IFA (done by PCP) ESR 114, Thrombocytosis, CRP 89.5 (normal 0-40) X-ray of the right shoulder had osteoarthritis in the AC joint but otherwise normal She has had inflammatory pain in her shoulders, hips and hands. No synovitis. Great response to low to moderate dose steroids, originally dx with polymyalgia rheumatica Current Rx: methotrexate 12.5mg weekly and daily folic acid, prednisone 5 mg daily . RA versus PMR. Overall low disease activity. Swollen joint count 0. Tender joint count 1. Good prognosis She feels improved since restarting prednisone 5 mg daily at 06/02/2023 visit. Continue this. She has no interest in higher dose methotrexate or biologic therapy. - continue 12.5 mg methotrexate (5 tabs) weekly, and daily folic acid and prednisone 5 mg daily Labs reviewed and are stable. Request most recent labs from [facility] which she does every 3 months. History RTC 3 months PMR (polymyalgia rheumatica) 10/02/2023 Osteopenia 10/02/2023 Assessment & Plan (10/03/2023 1:38 PM EDT): DEXA (12/10/2021) showed osteopenia in the left femoral neck with worse T-score of-1.3. Normal bone density in lumbar spine and total hip. Frac score suggested 10 year hip fracture risk of 3.1%. This makes her a candidate for bisphosphonate therapy Current Rx: fosamax (started 03/29/2022) - Continue alendronate 70mg weekly - Continue Vitamin D supplementation with 2,000 IU daily - Continue calcium in diet - Repeat DEXA 11/2023 We discussed the possible side effects of bisphosphonates including nausea, GI upset, esophageal irritation, TMJ osteonecrosis, arthralgias. We also discussed the rare side effect of atypical long bone fracture Rheumatoid factor positive 10/02/2023 High risk medication use 10/02/2023 Assessment & Plan (10/03/2023 1:38 PM EDT): - CBC, CMP, ESR, and CRP every 2-3 months on current medications - Due for next DEXA on or after 12/11/2023 - We discussed the possible side effects of methotrexate including, but not limited to: oral ulcers, nausea, diarrhea, rash, increased infection risk, bone marrow suppression, hepatitis, pulmonary toxicity. We discussed the need to avoid alcohol and to have regulatory lab monitoring done while taking methotrexate. We discussed that live virus vaccines are contraindicated while taking methotrexate. - Reiterated that anytime she is on antibiotics, she needs to hold her methotrexate Cerebral aneurysm 04/24/2023 Assessment & Plan (10/03/2023 1:38 PM EDT): 03/2023 was hospitalized at [facility] and had cerebral aneurysm coiled Basilar artery aneurysm 04/10/2023 Essential hypertension 04/10/2023 Hyperlipidemia 04/10/2023 Postablative hypothyroidism 01/11/2023 Overview (01/11/2023): Following I 131 therapy years ago Assessment & Plan (01/11/2023 1:54 PM EDT): Has had instability to her dose lately. Has been on current dose only for 2 weeks. Needs to be on this dose for at least another 2-3 weeks then recheck levels. Might need to be alternating the pills Her current ocular inflammation might be thyroid related eye disease. She will discuss with her eye doc Abnormal Pap smear of cervix 11/28/2022 Resolved Problems Problem Noted Date Diagnosed Date Resolved Date Expressive aphasia 04/10/2023 Transient ischemic attack (TIA) 04/10/2023 04/10/2023 CVA (cerebral vascular accident) 04/09/2023 04/10/2023 Encounters Date Type Department Care Team Description 10/21/2024 3:30 PM EDT Office Visit [facility] NEUROSURGERY [address] [facility] [address] [place] [address] Canelo Maldonado MD Basilar artery aneurysm (Primary Dx) 10/21/2024 12:45 PM EDT - 10/21/2024 11:59 PM EDT Hospital Encounter [facility] MRI [address] [place] [address] Canelo Maldonado MD Basilar artery aneurysm Discharge Disposition: Home or Self Care 10/21/2024 Travel from Last 3 Months Immunizations Immunization Administration Dates Next Due Influenza, Unspecified 01/20/2021 Family History Medical History Relation Name Comments Osteoporosis Brother 1 60's Cancer Brother 2 Wesley wicorkyams Had surgery/ prostrate Stroke Brother 3 Wesley Heart attack Father Breast cancer Maternal Aunt Arthritis Mother Adeena Knees Asthma Mother Adeena Was on oxygen COPD Mother Adeena Heart disease Mother Adeena Stint put in Osteoporosis Mother Adeena Vision loss Mother Adeena Had glaucoma Anemia Sister Paola Salas and myself Ovarian cancer Neg Hx Relation Name Status Comments Brother 1 Other prostate Brother 2 Wesley wiilliams Alive Brother 3 Wesley Father Maternal Aunt Mother Adeena Sister Paola Salas and myself Alive Social History Tobacco Use Types Packs/Day Years [...] or training? Not on file Preferred Language Kinyarwanda 04/25/2023 Comments No Sex and Gender Information Value Date Recorded Sex Assigned at Not on file Legal Sex Female 1:49 PM EDT Gender Identity Not on file Sexual Orientation Not on file Occupation Industry Job Start Date Job End Date retired Not on file Not on file Not on file Last Filed Vital Signs Vital Sign Reading Time Taken Comments Blood Pressure 128/70 01/29/2024 11:27 AM EDT Pulse 63 01/29/2024 11:27 AM EDT Temperature 36.9 C (98.4 F) 10/21/2024 2:15 PM EDT Respiratory Rate 15 04/25/2023 12:0 0 AM EST Oxygen Saturation 98% 04/25/2023 9:30 AM EST Inhaled Oxygen Concentration - - Weight 49.4 kg (108 lb 12.8 oz) 10/21/2024 2:15 PM EDT Height 152.4 cm (5') 10/21/2024 2:15 PM EDT Body Mass Index 21.25 10/21/2024 2:15 PM EDT Plan of Treatment Upcoming Encounters Date Type Department Care Team (Late st Contact Info) Description 01/06/2025 11:10 AM EDT Office Visit [facility] OBGYN [address] [place] [address] Samreen Egan MD [address] [facility] [address] [place] [address] 01/06/2025 12:40 PM EDT Appointment [facility] [address] [place] [address] Health Maintenance Due Date Last Done Comments TDAP/TD VACCINES (1 - Tdap) 1970 COLOGUARD 01/15/1996 COLON CANCER SCREENING 5 YEA R SIGMOIDOSCOPY 01/15/1996 COLONOSCOPY 01/15/1996 COLORECTAL CANCER SCREENING 01/15/1996 CT COLONOGRAPHY 01/15/1996 FECAL OCCULT BLOOD TEST 01/15/1996 FIT Testing (1 year) 01/15/1996 ZOSTER VACCINE (1 of 2) 2001 Pneumococcal Vaccine 50+ (2 of 2 - PPSV23) 02/14/2017 02/15/2016 ANNUAL WELLNESS VISIT 05/26/2020 HEPATITIS C SCREENING 05/26/2020 LIPID PANEL 04/10/2024 04/10/2023, 02/19, 03/05/2023 COVID-19 Vaccine (8 - 2023-2 5 season) 2025 07/10/2024, 03/27/2023, 03/16/2022, Additional history exists INFLUENZA VACCINE 02/19/2025 07/09/2024, , 01/20/2021, Additional history exists MAMMOGRAM 12/31/2025 01/01/2024, 08/20, 09/05/2022, Additional history exists DXA SCAN 06/12/2026 06/12/2024, 09/19, 10/02/2023 Medical Devices Implanted Type Area Java Golden Gate Developer Device Identifier Shelf Expiration Date Model / Serial / Lot Complexcoil Adv Hypersoft 3d W/Vtrak Ds Sz10 5mm 15cm - [id number] Implanted:Qty: 1 on 04/24/2023 by Canelo Maldonado MD at [facility] Implant Brain [employer] 01/20/2024 [id number] / / [id number] Coil Complex [id number] Advanced Plat 4mm 8cm - [id number] Implanted:Qty: 1 on 04/24/2023 by Canelo Maldonado MD at [facility] Implant Brain TERUMO [employer] BRIGHT 12/19/2024 [id number] / / [id number] Complexcoil Adv Hypersoft 3d W/Vtrak Ds Sz10 3.5mm 8cm - [id number] Implanted:Qty: 1 on 04/24/2023 by Canelo Maldonado MD at [facility] Implant Brain [employer] [id number] / / [id number] Complexcoil Adv Hypersoft 3d W/Vtrak Ds Sz10 3.5mm 8cm - [id number] Implanted:Qty: 1 on 04/24/2023 by Canelo Maldonado MD at [facility] Implant Brain [employer] [id number] / / [id number] Complexcoil Adv Hypersoft 3d W/Vtrak Ds Sz10 2mm 2cm - [id number] Implanted:Qty: 1 on 04/24/2023 by Canelo Maldonado MD at [facility] Implant Brain [employer] 09/18/2025 [id number] / / [id number] Procedures Procedure Name Priority Date/Time Associated Diagnosis Comments MRI ANGIOGRAM HEAD W WO CONTRAST Routine 10/21/2024 1:58 PM EDT Basilar artery aneurysm MAMMO SCREENING DIGITAL TOMOSYNTHESIS BILATERAL W CAD Routine 01/01/2024 2:01 PM EDT Visit for screening mammogram SCANNED - DEXA Routine 10/02/2023 4:54 PM EDT LIPID PANEL Routine 04/10/2023 6:41 AM EST from Last 3 Months or Most Recently Relevant to Health Maintenance Results * MRI Angiogram Head With & Without Contrast (10/21/2024 1:58 PM EDT) Anatomical Region Laterality Modality Head, Neck N/A Magnetic Resonan ce 10/21/2024 6:56 PM EDT Impressions 10/21/2024 6:59 PM EDT Stable appearance of the basilar artery tip aneurysm post coiling Electronically Signed: Ramirez Combs MD 10/21/2024 6:59 PM EDT Workstation ID: [id number] Narrative 10/21/2024 6:59 PM EDT MRI ANGIOGRAM HEAD W WO CONTRAST Date of Exam: 10/21/2024 1:19 PM EDT Indication: BASILAR ARTERY ANEURYSM. Comparison: 10/31/2023 Technique: Routine 3-D vjzb-gt-pmyorx gradient echo imaging was obtained of the [...] ARTERY ANEURYSM. Comparison: 10/31/2023 Technique: Routine 3-D vydx-az-hsinad gradient echo imaging was obtainedof the head [...] MD 10/21/2024 6:59 PM EDT Workstation ID: [id number] Canelo Maldonado MD [facility] MRI ORDERABLES Final Res ult * Mammo Screening Digital Tomosynthesis Bilateral With CAD (01/01/2024 2:01 PM EDT) Anatomical Region Laterality Modality Breast N/A Mammography 01/04/2024 2:26 PM EDT Impressions 01/04/2024 2:29 PM EDT No mammographic findings suspicious for malignancy. RECOMMENDATION: Continue annual screening mammography. BI-RADS CATEGORY 1, NEGATIVE. CAD was utilized. The standard false-negative rate of mammography is between 10% and 25%. Complex patterns or increased breast density will markedly elevate the false-negative rate of mammography. A letter, in lay terminology, with the results of this exam will be mailed to the patient. This report was finalized on 01/04/2024 2:[address] Maylin Mukherjee MD. Narrative 01/04/2024 2:29 PM EDT BILATERAL SCREENING MAMMOGRAM WITH TOMOSYNTHESIS: HISTORY: The patient has no personal history or significant family history of breast cancer and no focal breast complaints at the time of screening mammography. A maternal aunt was diagnosed with breast cancer. TECHNIQUE: Bilateral CC and MLO low dose, full field digital mammographic images were obtained with tomosynthesis. COMPARISON: 07/05/2016, 07/11/2017, 07/31/2018, 08/08/2019, 08/13/2020, 08/23/2021, and 09/05/2022 FINDINGS: There are scattered areas of fibroglandular density. The fibroglandular pattern is stable. There are no suspicious masses, worrisome calcifications, nonsurgical areas of architectural distortion, or other secondary signs of malignancy. Samreen Egan MD IMG MAMMOGRAPHY ORDERABLES Final Result * DEXA Scan (10/02/2023 4:54 PM EDT) Anatomical Region Laterality Modality Other Historical Provider MD NICOLE CHART REVIEW TABS Ofelia caballero Result * (ABNORMAL) Lipid Panel (04/10/2023 6:41 AM EST) Total Cholesterol 183 0 - 200 mg/dL 04/10/2023 7:44 AM EST [facility] Triglycerides 120 0 - 150 mg/dL 04/10/2023 7:44 AM EST [facility] HDL Cholesterol 68(H) 40 - 60 mg/dL 04/10/2023 7:44 AM EST [facility] LDL Cholesterol 94 0 - 100 mg/dL 04/10/2023 7:44 AM EST [facility] VLDL Cholesterol 21 5 - 40 mg/dL 04/10/2023 7:44 AM EST [facility] LDL/HDL Ratio 1.34 04/10/2023 7:44 AM EST [facility] Blood Venipuncture / Unknown 04/10/2023 6:41 AM EST 04/10/2023 7:01 AM EST [facility] - 04/10/2023 7:44 AM EST Cholesterol Reference Ranges (U.S. Department of Health and Human Services ATP III Classifications) Desirable <200 mg/dL Borderline High 200-239 mg/dL High Risk >240 mg/dL Triglyceride Reference Ranges (U.S. Department of Health and Human Services ATP III Classifications) Normal <150 mg/dL Borderline High 150-199 mg/dL High 200-499 mg/dL Very High >500 mg/dL HDL Reference Ranges (U.S. Department of Health and Human Services ATP III Classifications) Low <40 mg/dl (major risk factor for CHD) High >60 mg/dl ('negative' risk factor for CHD) LDL Reference Ranges (U.S. Department of Health and Human Services ATP III Classifications) Optimal <100 mg/dL Near Optimal 100-129 mg/dL Borderline High 130-159 mg/dL High 160-189 mg/dL Very High >189 mg/dL Kristan Peterson SURGICAL SCRUB TECHNICIAN LAB BLOOD ORDERABLES Fin al Result [facility]
[address] [place] [address], from Last 3 Months or Most Recently Relevant to Health [place] [address] [facility] MEDICARE ADVANTAGE PPO Advance Directives * CPR (Attempt to Resuscitate) (Latest Code Status on File) Date Activated Date Inactivated Comments 04/25/2023 7:52 AM 04/25/2023 12:56 PM Question Answer Comments Code Status (Patient has no pulse and is not breathing): CPR (Attempt to Resuscitate) Medical Interventions (Patie nt has pulse or is breathing): Full Support * CPR (Attempt to Resuscitate) Date Activated Date Inactivated Comments 04/10/2023 10:17 AM 04/10/2023 6:28 PM Question Answer Comments Code Status (Patient has no pulse and is not breathing): CPR (Attempt to Resuscitate) Medical Interventions (Patie nt has pulse or is breathing): Full Support Level Of Support Discussed With: PatientNext of Kin (If No Surrogate) Care Teams Lawyer Probate Relationship Specialty Start Date End Date Carlton Wyatt MD [address] [place] [address] [address] [facility] [address] [place], [place] [address] [facility] - General 07/01/15
--- OUTSIDE RECORDS SUMMARY | 2024-12-11 08:35 | XMS_ITS | Clinical Summary ---
Author Organization [facility] Address [address] [place] [address] Care Team Providers Care Bonding Machine Operator Name Role Phone Carlton Wyatt MD Primary Care Provider [phone] Suzanne Obrien TOBACCO WETTER Unavailable [phone] Dudley Tena MD Unavailable [phone] Dee Diamond RN Unavailable Unavailable Suzanne Obrien TOBACCO WETTER Unavailable [phone] Allergies Active Allergy Reactions Criticality Noted Date [...] (10/13/2021): Added automatically from request for surgery [id number] Primary osteoarthritis of one hip, left 05/16/20 22 Overview (10/04/2021): Added automatically from request for surgery [id number] HTN (hypertension) 07/02/2021 HLD (hyperlipidemia) 07/02/2021 CAD (coronary artery disease) 07/02/2021 Hypothyroidism 07/02/2021 SMOOTH (obstructive sleep apnea) 07/02/2021 Gastroesophageal reflux disease 07/02/2021 Impaired tolerance of activity 07/02/2021 Hip pain 11/27/2019 Resolved Problems Problem Noted Date Diagnosed Date Resolved Date 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 22 07/14/2021 Cervical myelopathy 06/21/2021 07/14/19 22 Overview (06/21/2021): Added automatically from request for surgery [id number] Family History Medical History Relation Name Comments [...] EDT Ovarian Cancer Screening [facility] [address] [facility] [place] [address] Health Maintenance Due Date Last Done Comments [...] (2 of 2 - PPSV23) 02/14/2017 02/15/2016 [id number] Vaccine (8 - Moderna risk 2023- season) [...] Theron Gorman Medical Devices Implanted Type Area Integrated Specialist Device Identifier Shelf Expiration Date Model / Serial / Lot Knee Vanguard1 Cervical Preservon 7mm - [id number] - [id number] Implanted:Qty: 1 on 07/13/2021 by Dudley Tena MD at [facility]888778 04/07/2026 [id number] / [id number] / [id number] Graft Vivigen 1cc - [id number] - [id number] Implanted:Qty: 1 on 07/13/2021 by Dudley Tena MD at [facility]-[id number] 06/16/2022 [id number] / [id number] / [id number] Screw Retainer 3.5mm X 14mm - [id number] Implanted:Qty: 2 on 07/13/2021 by Dudley Tena MD at [facility] Spine [facility]-[id number] 07/13/2022 [id number] / / Nut Retainer - [id number] Implanted:Qty: 2 on 07/13/2021 by Dudley Tena MD at [facility] Spine [facility]-[id number] 07/13/2022 [id number] / / One Level Plate, 12mm - [id number] Implanted:Qty: 1 on 07/13/2021 [facility]-[id number] 07/13/2022 [id number] / / Self Drilling Screw 14mm - [id number] Implanted:Qty: 4 on 07/13/2021 by Dudley Tena MD at [facility] [id number] 07/13/2022 [id number] / / Chg Stem Anthology Ho Por Pl H - [id number] Implanted:Qty: 1 on 04/16/2024 by Refugio Do MD at [facility] Left: Hip [employer]-[id number] 08/27/2033 [id number] / / [id number] Chg Head Oxinium Fem 05/04 32m - [id number] Implanted:Qty: 1 on 04/16/2024 by Refugio Do MD at [facility] Left: Hip [employer]-[id number] 03/26/2032 [id number] / / [id number] Chg Liner R3 0 Deg Xlpe Acet 3 - [id number] Implanted:Qty: 1 on 04/16/2024 by Refugio Do MD at [facility] Left: Hip [employer]-[id number] 12/03/2026 [id number] / / [id number] Chg Screw Ref Spher Head 25mm - [id number] Implanted:Qty: 1 on 04/16/2024 by Refugio Do MD at [facility] Left: Hip [employer]-[id number] 10/20/2033 [id number] / / [id number] Chg Shell R3 3 Hole Acet 50mm - [id number] Implanted:Qty: 1 on 04/16/2024 by Refugio Do MD at [facility] Left: Hip [employer]-[id number] 10/30/2033 [id number] / / [id number] Additional Health Concerns Active Problems Noted Date Diagnosed Date Autogenerated Problem 09/10/2024 Insurance [facility] MEDICARE Advance Directives * Full Code (Latest Code Status on File) Date Activated Date Inactivated Comments 04/16/2024 8:45 AM 04/16/2024 5:10 PM Question Answer Comments Patient has decision-making capacity? Yes * Full Code Date Activated Date Inactivated Comments 07/13/2021 7:47 AM 07/14/2021 3:20 PM Question Answer Comments Patient has decision-making capacity? Yes Care Teams Bonding Machine Operator Relationship Specialty Start Date End Date Carlton Wyatt MD [address] [place] [address] [address] [place] [address] PCP - General 10/02/20 Suzanne Obrien APRN [address] [place] [address] Nurse Practitioner Neurosurgery 04/30/21 Dudley Tena MD [address] [place] [address] Surgeon Neurosurgery 05/12/21 Dee Diamond RN Registered Nurse 07/13/21 Suzanne Obrien APRN [address] [place] [address] Nurse Practitioner Neurosurgery 08/24/21
--- OUTSIDE RECORDS SUMMARY | 2024-12-11 08:35 | XMS_ITS | Referral Summary ---
Author Organization [facility] ([place], [place], [place], [place]) Address [address] [place] [address] Care Team Providers Care Hone Operator Name Role Phone Carlton Wyatt MD Primary Care Provider [phone] Allergies Active Allergy Reactions Criticality Noted Date [...] Date Antwon rded Speak language other than Spanish at home Not on file 06/01/2023 Want [...] Not on file Insurance [employer] MEDICARE PPO [facility] Advance Directives For more information, please contact: [phone] * Full Code (Latest Code Status on File) Date Activated Date Inactivated Comments 03/04/2023 5:43 PM 03/06/2023 4:53 PM -Attempt R esuscitation if person has no pulse and is not breathing. -If no pulse or not breathing attempt CPR/CODE. -Call Rapid Response if patient is in distress. Care Teams Hone Operator Relationship Specialty Start Date End Date Carlton Wyatt MD [address] [place] [address] [place] [address] PCP - General General Internal Medicine 03/04/23
--- OUTSIDE RECORDS SUMMARY | 2024-12-11 08:35 | XMS_ITS | Data Portability ---
Author Organization [facility] [place] [facility] ADMIN Address [address] [place] [address] Assessment Encounter Date Assessment Date Assessment LastModified [...] colonoscopy last July with no significant findings [email or web address] Not available 11/17/2022 13:41:58 12/20/2022 12/20/2022 72-year-old female with LLQ pain/change in bowel habits. CT showed constipation. Her symptoms are improved with Linzess and Bentyl. She will continue and follow-up as needed. -EGD and colonoscopy last July with no significant findings [email or web address] Not available 12/20/2022 14:14:05 Plan of Treatment Reminders Order Date Submit Date Provider Last Modified By Organization Details Last Modified Time Details Appointments None recorded. Lab None recorded. Referral None recorded. Procedures None recorded. Surgeries None recorded. Imaging None recorded. Medication Orders Linzess 145 mcg capsule 2022 023 [facility], [address], [address], [place], [address], 13:42:08 dicyclomine 20 mg tablet 2022 023 [facility], [address], [address], [place], [address], 13:42:09 Patient TargetsNo targets recorded. Patient InstructionsNo instructions recorded. Reason for Referral None Reported. Problems Name Problem SNOMED Code Status Onset Date Resolution Date Notes Provider Name and Address Organization Details Recorded Time Arthritis 0947398 Active 2022 Leonie Kurtz null, [place] - [facility] - [place] & [place] 13:11:16 Hypercholeste rolemia 93546137 Active 2022 Leonie Kurtz null, [place] [facility] [place] 13:11:30 Left lower quadrant pain 244099804 Active 2022 Dhruv Mathis PA-C [address], [place], [address] , [place] - [facility] & [place] 3 13:37:47 Chronic idiopathic constipation 99438312 Active 2022 Dhruv Mathis PA-C [address] , [place], [address] , [place] - [facility] & [place] 3 13:37:56 Problem Notes None recorded. Procedures Surgical History Date Name Laterality Status Provider Name and Address Organization Details Recorded Time Stent Placement completed Leonie Kurtz [place] - [facility] & [place] 11/17/2022 13:10:11 Imaging Results None recorded. Procedure Notes None recorded. Medical Equipment None Reported. Allergies Allergen ID Allergen Name Allergen Category Reaction Reaction Severity Criticality Documentation Date Start Date Code Code System Note Provider Name and Address Organization Details Recorded Time 31685 Substance with sulfonami de structure and antibacte rial mechanism of action (substanc e) medicatio n Not available Not available Not available 11/17/2022 18372 8003 SNOMED Leonie Kurtz null, [place] - [facility] - [place] & [place] 3 13:09:05 Medications Name Sig Start Date [...] active Not Available Not Available Not Available Mireya Senior active Not Available Not Available Not Available [facility] active Not Available Not Available Not Available [...] Body height Body temperature Heart rate Systolic And Diastolic Provider Name and Address Organization Details Last Updated DateTime 33541.9 1 g 21.8 kg/m2 152.4 cm 97.3 [degF] 62 /min 129/70 mm[Hg] Leonie Encinaswell [facility] & [place] 13:09:20 Social History Question Answer Notes LastModified by Project 2020 Details LastModified Time Tobacco Smoking Status Never Smoker Leonie Encinaswell [facility], [facility] & [place] 11/17/2022 13:10:35 What Is Your Level Of Caffeine Consumption? Moderate [email or web address] Information not available 11/17/2022 Sex: Unknown Functional Status Question Answer Note LastModified by [employer] by [employer] Details LastModified Time Do you use any illicit or recreational drugs? No [email or web address] Information not available 11/17/2022 Do you or have you ever used any other forms of tobacco or nicotine? No [email or web address] Information not available 11/17/2022 What is your level of alcohol consumption? None [email or web address] Information not available 11/17/2022 Mental Status None recorded. Family History Relationship Description Onset Age of this Age Resolved Age Notes LastModified by Organization Details LastModified Time Mother Hypertensive disorder [email or web address] Not available 10/21 13:10:51 Mother Arthritis [email or web address] Not avail able 11/17/2022 13:11:00 Medical History No medical history recorded. Gynecological HistoryNo gynecological history recorded. Obstetrics History GPAL:G 0 P 0 0 0 0 Past Encounters Encounter ID Performer Location Encounter Start Date Encounter Closed Date Diagnosis/Indication Diagnosis SNOMED-CT Code Diagnosis ICD10 Code Diagnosis Note [id number] Dhruv Mathis PA-C [facility] [address] [address] 11/17/2022 13:00:51 11/17/2022 13:36:45 Left lower quadrant pain 302305630 R10.32 Chronic id iopathic constipation 59152193 K59.04 [id number] Dhruv Mathis PA-C [facility] [address] [address] 12/20/2022 13:35:47 12/20/2022 14:05:10 Left lower quadrant pain 886894114 R10.32 Chronic id iopathic constipation 80829881 K59.04 Health Concerns Section Related Observation LastModified by Organization Detai ls LastModified Time None Recorded Concern Status LastModified by Organization Details LastModified Time None Recorded Advance Directives Directive None Recorded Payers Insurance Date Sequence Insurance Name Policy Number Policy Foreman Covered Member ID Foreman Member ID Guarantor Name 12/28/2022 2 () Kaylin Walton [id number] Kaylin Walton 12/20/2022 1 [employer] (MEDICARE REPLACEMENT/ ADVANTAGE - PPO) Kaylin Walton [id number] Kaylin Walton Notes Date Note Type Note [...] for CT abd/pelvis done at [facility] that showed constipation with mild wall [...] constipation. Dhruv Mathis PA-C [address], [place], [address], [facility] & [place] 11/17/2022 13:42:09 12/20/2022 text/html PREVIOUS (10/2922 ): Very pleasant 72-year-old female with history of iron deficiency anemia, not presenting with complaint of alternating constipation and diarrhea with LLQ abdominal pain. She was recently empirically treated with antibiotics by her PCP for suspected diverticulitits, however her symptoms did not improve. She was then sent for CT abd/pelvis done at [facility] that showed constipation with mild wall [...] care. Dhruv Mathis PA-C [address], [place], [address], [place] - [place] [facility] & [place] 12/20/2022 14:14:26 OBGyn Episode No OBEpisode recorded.
--- OUTSIDE RECORDS SUMMARY | 2024-12-11 08:35 | XMS_ITS | Encounter Summary ---
Author Organization [facility] Address [address] [place] [address] Care Team Providers Care Gas Appliance Servicer Name Role Phone Carlton Wyatt MD Primary Care Provider [phone] Encounter Details Date Type Department Care Team (Latest Contact Info) Description 10/21/2024 Travel Social History Tobacco Use Types Packs/Day Years [...] or training? Not on file Preferred Language Trinidadian 04/25/2023 Comments No Sex and Gender Information Value Date Recorded Sex Assigned at Not on file Legal Sex Female 1:49 PM EDT Gender Identity Not on file Sexual Orientation Not on file Occupation Industry Job Start Date Job End Date retired Not on file Not on file Not on file documented as of this encounter Plan of Treatment Upcoming Encounters Date Type Department Care Team (Late st Contact Info) Description 01/06/2025 11:10 AM EDT Office Visit [facility] O[facility] [address] [place] [address] Samreen Egan MD [address] [facility] [address] [place] [address] 01/06/2025 12:40 PM EDT Appointment [facility] [address] [place] [address] documented as of this encounter Visit Diagnoses Not on filedocumented in this encounter Care Teams Gas Appliance Servicer Relationship Specialty Start Date End Date Carlton Wyatt MD [address] [facility] [address] [facility] [place] [address] PCP - General 07/01/15 documented as of this encounter
[2024-12-11 10:11] LABS: Hematocrit 34.5 % (37.0-47.0); Hemoglobin 11.2 g/dL (12.2-16.2); Immature Granulocytes % 0.5 %; Mean Corpuscular HGB Conc 32.5 g/dL (31.8-35.4); Mean Corpuscular Hemoglobin 32.7 pg (27.0-31.2); Mean Corpuscular Volume 100.6 fl (81-99); Nucleated Red Blood Cells % 0 %; Platelet Count 224 K/mm3 (142-424); Red Blood Count 3.43 M/mm3 (4.20-5.40); Red Cell Distribution Width-SD 50.0 fL; White Blood Count 6.4 K/mm3 (4.8-10.8)
[2024-12-11 10:49] LABS: Albumin Level 4.1 g/dl (3.5-5.0); Chloride 100 mmol/L (98-107); Potassium 3.8 mmoL/L (3.5-5.1); Sodium 135 mmol/L (136-145)
[2024-12-11 10:51] LABS: Blood Urea Nitrogen 24 mg/dl (7-17); Creatinine,Serum 0.90 mg/dl (0.52-1.04); Estimated Glomerular Filt Rate 61 ml/min (>60); GFR (African American) 74 ML/MIN (>60)
[2024-12-11 10:52] LABS: Alanine Aminotransferase 25 U/L (12-78); Albumin/Globulin Ratio 1.8 (1.1-1.8); Alkaline Phosphatase 45 U/L (38-126); Anion Gap 7.8 mEq/L (5-15); Aspartate Amino Transferase 33 U/L (14-36); Bilirubin,Total 0.9 mg/dl (0.2-1.3); Calcium 9.3 mg/dl (8.4-10.2); Carbon Dioxide 31 mmol/L (22.0-30.0); Globulin 2.3 g/dL (1.3-3.2); Glucose 84 mg/dl (74-100); Total Protein,Serum 6.4 g/dl (6.3-8.2)
[2024-12-11 10:58] LABS: C-Reactive Protein 0.9 mg/L (0-4)
== END 2024-12-11 23:59 | disposition home or self-care (01) ==
LOC: LAB 08:33
PROVIDERS: PCP Internal Medicine; Visit Provider Internal Medicine Rheumatology
DX: Z79.899 Other long term (current) drug therapy (principal)
CPT/HCPCS: 36415; 80053; 85025; 85651; 86140

== ENCOUNTER 2024-12-31 10:15 | Outpatient (CLI) | payer MEDICARE, OTHER, SELFPAY ==
[2024-12-31 14:35] LABS: Alanine Aminotransferase 25 U/L (12-78); Albumin Level 4.4 g/dl (3.5-5.0); Albumin/Globulin Ratio 2.0 (1.1-1.8); Alkaline Phosphatase 48 U/L (38-126); Anion Gap 10.1 mEq/L (5-15); Aspartate Amino Transferase 34 U/L (14-36); Bilirubin,Total 0.3 mg/dl (0.2-1.3); Blood Urea Nitrogen 22 mg/dl (7-17); Calcium 9.3 mg/dl (8.4-10.2); Carbon Dioxide 29 mmol/L (22.0-30.0); Chloride 100 mmol/L (98-107); Cholesterol 192 mg/dl (140-200); Creatinine,Serum 1.00 mg/dl (0.52-1.04); Estimated Glomerular Filt Rate 54 ml/min (>60); GFR (African American) 66 ML/MIN (>60); Globulin 2.2 g/dL (1.3-3.2); Glucose 71 mg/dl (74-100); HDL Cholesterol 69 mg/dl (40-60); Potassium 4.1 mmoL/L (3.5-5.1); Sodium 135 mmol/L (136-145); Total Protein,Serum 6.6 g/dl (6.3-8.2); Triglycerides 133 mg/dl (30-150)
[2024-12-31 15:05] LABS: Thyroid Stimulating Hormone 0.48 uIU/mL (0.465-4.68)
--- OUTSIDE RECORDS SUMMARY | 2025-01-01 12:09 | XMS_ITS | Clinical Summary ---
Author Organization [facility] Address [address] [place] [address] Care Team Providers Care Blacktop Paver Operator Name Role Phone Carlton Wyatt MD [...] Every 12 (Twelve) Hours. Active Probiotic Product (Senscient PO) Take by mouth. 1.5 BILLION CELL [...] with Dr. Young at [facility] without rheumatoid factor 10/02/2023 Assessment & [...] are stable. Request most recent labs from [facility] which she does every 3 months. History [...] 1:38 PM EDT): 03/2023 was hospitalized at [facility] and had cerebral aneurysm coiled Basilar [...] Description 10/21/2024 3:30 PM EDT Office Visit [facility] [address] [facility] [address] [place] [address] Canelo Maldonado MD Basilar artery aneurysm (Primary Dx) 10/21/2024 12:45 PM EDT - 10/21/2024 11:59 PM EDT Hospital Encounter [facility] MRI [address] [place] [address] Canelo Maldonado MD Basilar artery aneurysm Discharge [...] or training? Not on file Preferred Language Kenyan 04/25/2023 Comments No Sex and Gender Information [...] Description 01/06/2025 11:10 AM EDT Office Visit [facility] [address] [place] [address] Samreen Egan MD [address] [facility] [address] [place] [address] 01/06/2025 12:40 PM EDT Hospital Encounter [facility] [address] [place] [address] Health Maintenance Due Date Last [...] 09/19, 10/02/2023 Medical Devices Implanted Type Area Manager Physical Device Identifier Shelf Expiration Date Model / Serial / Lot Complexcoil Adv Hypersoft 3d W/Vtrak Ds Sz10 5mm 15cm - [id number] Implanted:Qty: 1 on 04/24/2023 by Canelo Maldonado MD at [facility] Implant Brain [employer] 01/20/2024 [id number] / / [id number] Coil Complex [id number] Advanced Plat 4mm 8cm - [id number] Implanted:Qty: 1 on 04/24/2023 by Canelo Maldonado MD at [facility] Implant Brain [employer] 12/19/2024 [id number] / / [id number] Complexcoil Adv Hypersoft 3d W/Vtrak Ds Sz10 3.5mm 8cm - [id number] Implanted:Qty: 1 on 04/24/2023 by Canelo Maldonado MD at [facility] Implant Brain [employer] [id number] / / [id number] Complexcoil Adv Hypersoft 3d W/Vtrak Ds Sz10 3.5mm 8cm - [id number] Implanted:Qty: 1 on 04/24/2023 by Canelo Maldonado MD at [facility] Implant Brain [employer] [id number] / / [id number] Complexcoil Adv Hypersoft 3d W/Vtrak Ds Sz10 2mm 2cm - [id number] Implanted:Qty: 1 on 04/24/2023 by Canelo Maldonado MD at [facility] Implant Brain [employer] 09/18/2025 [id number] / / [id number] Procedures Procedure Name Priority Date/Time Associated Diagnosis [...] MD 10/21/2024 6:59 PM EDT Workstation ID: [id number] Narrative 10/21/2024 6:59 PM EDT MRI ANGIOGRAM HEAD W WO CONTRAST Date of Exam: 10/21/2024 1:19 PM EDT Indication: BASILAR ARTERY ANEURYSM. Comparison: 10/31/2023 Technique: Routine 3-D bonc-xt-dsdrgl gradient echo imaging was obtained of the [...] ARTERY ANEURYSM. Comparison: 10/31/2023 Technique: Routine 3-D zkcf-bd-xtbink gradient echo imaging was obtainedof the head [...] MD 10/21/2024 6:59 PM EDT Workstation ID: [id number] Canelo Maldonado MD [facility] MRI ORDERABLES Final Res ult * Mammo [...] - 200 mg/dL 04/10/2023 7:44 AM EST [facility] Triglycerides 120 0 - 150 mg/dL 04/10/2023 7:44 AM EST [facility] HDL Cholesterol 68(H) 40 - 60 mg/dL 04/10/2023 7:44 AM EST [facility] LDL Cholesterol 94 0 - 100 mg/dL 04/10/2023 7:44 AM EST [facility] VLDL Cholesterol 21 5 - 40 mg/dL 04/10/2023 7:44 AM EST [facility] LDL/HDL Ratio 1.34 04/10/2023 7:44 AM EST [facility] Blood Venipuncture / Unknown 04/10/2023 6:41 AM EST 04/10/2023 7:01 AM EST [facility] - 04/10/2023 7:44 AM [...] mg/dL Very High >189 mg/dL Kristan Peterson METER REPAIR SHOP SUPERVISOR LAB BLOOD ORDERABLES Fin al Result [facility]
[address] [place] [address], from Last 3 Months or Most Recently Relevant to [place] [address] [facility] MEDICARE ADVANTAGE PPO Advance Directives * CPR [...] of Kin (If No Surrogate) Care Teams Blacktop Paver Operator Relationship Specialty Start Date End Date Carlton Wyatt MD [address] [place] [facility] [address] [facility] [address] [place] [address] [facility] - General 07/01/15
--- OUTSIDE RECORDS SUMMARY | 2025-01-01 12:09 | XMS_ITS | Clinical Summary ---
Author Organization [employer] ([place], [place], [place], [place] Address [address] [place] [address] Care Team Providers Care Harbor Tug Captain Name Role Phone Carlton Wyatt MD Primary Care Provider [phone] Allergies Active Allergy Reactions Criticality Noted Date [...] Date Antwon rded Speak language other than Macanese at home Not on file 06/01/2023 Want [...] Advance Directives For more information, please contact: [phone] * Full Code (Latest Code Status on File) Date Activated Date Inactivated Comments 03/04/2023 5:43 PM 03/06/2023 4:53 PM -Attempt R esuscitation if person has no pulse and is not breathing. -If no pulse or not breathing attempt CPR/CODE. -Call Rapid Response if patient is in distress. Care Teams Harbor Tug Captain Relationship Specialty Start Date End Date Carlton Wyatt MD [address] [place] [address] [place] [address] PCP - General General Internal Medicine 03/04/23
--- OUTSIDE RECORDS SUMMARY | 2025-01-01 12:09 | XMS_ITS | Referral Summary ---
Author Organization [employer] ([place], [place], [place], [place]) Address [address] [place] [address] Care Team Providers Care Storage Specialist Name Role Phone Carlton Wyatt MD Primary Care Provider [phone] Allergies Active Allergy Reactions Criticality Noted Date [...] Date Antwon rded Speak language other than New Zealander at home Not on file 06/01/2023 Want [...] Not on file Insurance [employer] MEDICARE PPO [facility] Advance Directives For more information, please contact: [phone] * Full Code (Latest Code Status on File) Date Activated Date Inactivated Comments 03/04/2023 5:43 PM 03/06/2023 4:53 PM -Attempt R esuscitation if person has no pulse and is not breathing. -If no pulse or not breathing attempt CPR/CODE. -Call Rapid Response if patient is in distress. Care Teams Storage Specialist Relationship Specialty Start Date End Date Carlton Wyatt MD [address] [place] [address] [place] [address] PCP - General General Internal Medicine 03/04/23
--- OUTSIDE RECORDS SUMMARY | 2025-01-01 12:09 | XMS_ITS | Clinical Summary ---
Author Organization [facility] Address [address] [place] [address] Care Team Providers Care District Attorney Name Role Phone Carlton Wyatt MD Primary Care Provider [phone] Suzanne Obrien HOME RESTORATION SERVICE SUPERVISOR Unavailable [phone] Dudley Tena MD Unavailable [phone] Dee Diamond RN Unavailable Unavailable Suzanne Obrien HOME RESTORATION SERVICE SUPERVISOR Unavailable Allergies Active Allergy Reactions Criticality Noted [...] (10/13/2021): Added automatically from request for surgery [id number] Primary osteoarthritis of one hip, left 05/16/20 22 Overview (10/04/2021): Added automatically from request for surgery [id number] HTN (hypertension) 07/02/2021 HLD (hyperlipidemia) 07/02/2021 CAD (coronary artery disease) 07/02/2021 Hypothyroidism 07/02/2021 SMOOTH (obstructive sleep apnea) 07/02/2021 Gastroesophageal reflux disease 07/02/2021 Impaired tolerance of activity 07/02/2021 Hip pain 11/27/2019 Resolved Problems Problem Noted Date Diagnosed Date Resolved Date 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 22 07/14/2021 Cervical myelopathy 06/21/2021 07/14/19 22 Overview (06/21/2021): Added automatically from request for surgery [id number] Family History Medical History Relation Name Comments [...] EDT Ovarian Cancer Screening [facility] [address] [place] [address] Health Maintenance Due Date Last Done Comments [...] (2 of 2 - PPSV23) 02/14/2017 02/15/2016 [id number] Vaccine (8 - Moderna risk 2023- season) [...] Theron Gorman Medical Devices Implanted Type Area Pile Driver Operator Device Identifier Shelf Expiration Date Model / Serial / Lot Knee Vanguard1 Cervical Preservon 7mm - [id number] - [id number] Implanted:Qty: 1 on 07/13/2021 by Dudley Tena MD at [facility]348814 04/07/2026 [id number] / [id number] / [id number] Graft Vivigen 1cc - [id number] - [id number] Implanted:Qty: 1 on 07/13/2021 by Dudley Tena MD at [facility]-[id number] 06/16/2022 [id number] / [id number] / [id number] Screw Retainer 3.5mm X 14mm - [id number] Implanted:Qty: 2 on 07/13/2021 by Dudley Tena MD at [facility] Spine [facility]-[id number] 07/13/2022 [id number] / / Nut Retainer - [id number] Implanted:Qty: 2 on 07/13/2021 by Dudley Tena MD at [facility] Spine [facility]-[id number] 07/13/2022 03.820.110 / / One Level Plate, 12mm - [id number] Implanted:Qty: 1 on 07/13/2021 [facility]-[id number] 07/13/2022 [id number] / / Self Drilling Screw 14mm - [id number] Implanted:Qty: 4 on 07/13/2021 by Dudley Tena MD at [facility] [employer]-[id number] 07/13/2022 [id number] / / Chg Stem Anthology Ho Por Pl H - [id number] Implanted:Qty: 1 on 04/16/2024 by Refugio Do MD at [facility] Left: Hip [employer]-[id number] 08/27/2033 [id number] / / [id number] Chg Head Oxinium Fem 05/04 32m - [id number] Implanted:Qty: 1 on 04/16/2024 by Refugio Do MD at [facility] Left: Hip [employer]-[id number] 03/26/2032 [id number] / / [id number] Chg Liner R3 0 Deg Xlpe Acet 3 - [id number] Implanted:Qty: 1 on 04/16/2024 by Refugio Do MD at [facility] Left: Hip [employer]-[id number] 12/03/2026 [id number] / / [id number] Chg Screw Ref Spher Head 25mm - [id number] Implanted:Qty: 1 on 04/16/2024 by Refugio Do MD at [facility] Left: Hip [employer]-[id number] 10/20/2033 [id number] / / [id number] Chg Shell R3 3 Hole Acet 50mm - [id number] Implanted:Qty: 1 on 04/16/2024 by Refugio Do MD at [facility] Left: Hip [employer]-[id number] 10/30/2033 [id number] / / [id number] Additional Health Concerns Active Problems Noted Date Diagnosed Date Autogenerated Problem 09/10/2024 Insurance [facility] MEDICARE Advance Directives * Full Code (Latest Code Status on File) Date Activated Date Inactivated Comments 04/16/2024 8:45 AM 04/16/2024 5:10 PM Question Answer Comments Patient has decision-making capacity? Yes * Full Code Date Activated Date Inactivated Comments 07/13/2021 7:47 AM 07/14/2021 3:20 PM Question Answer Comments Patient has decision-making capacity? Yes Care Teams District Attorney Relationship Specialty Start Date End Date Carlton Wyatt MD [address] [place] [address] [address] [place] [address] PCP - General 10/02/20 Suzanne Obrien APRN [address] [place] [address] Nurse Practitioner Neurosurgery 04/30/21 Dudley Tena MD [address] [place] [address] Surgeon Neurosurgery 05/12/21 Dee Diamond RN Registered Nurse 07/13/21 Suzanne Obrien APRN [address] [place] [address] Nurse Practitioner Neurosurgery 08/24/21
== END 2024-12-31 23:59 | disposition home or self-care (01) ==
LOC: LAB.DROPOF 01-01 12:06
PROVIDERS: PCP Internal Medicine; Visit Provider Internal Medicine
DX: I25.10 Atherosclerotic heart disease of native coronary artery without angina pectoris (principal); E03.9 Hypothyroidism, unspecified; E78.5 Hyperlipidemia, unspecified; I10 Essential (primary) hypertension
CPT/HCPCS: 80053; 80061; 84443

== ENCOUNTER 2025-01-26 11:03 | Outpatient (CLI) | payer MEDICARE, OTHER, SELFPAY ==
--- OUTSIDE RECORDS SUMMARY | 2025-01-06 11:10 | XMS_ITS | Encounter Summary ---
Author Organization [facility] Address [address] [place] [address] Care Team Providers Care Hairspring Setter Name Role Phone Carlton Wyatt MD Primary Care Provider [phone] Reason for Visit * Reason Comments Repeat pap postmenopausal visit Encounter Details Date Type Department Care Team (Late st Contact Info) Description 01/06/2025 11:10 AM EDT Office Visit [facility] OBGYN [address] [place] [address] Samreen Egan MD [address] [place] [address] History of loop electrical excision procedure (LEEP) (Primary Dx); Atypical squamous cells of undetermined significance (ASCUS) on Papanicolaou smear of cervix; Vaginal atrophy Social History Tobacco Use Types Packs/Day Years [...] or training? Not on file Preferred Language Danish 04/25/2023 Comments No Sex and Gender Information [...] Sign Reading Time Taken Comments Blood Pressure 118/70 01/06/2025 12:10 PM EDT Pulse - - Temperature - - Respiratory Rate - - Oxygen Saturation - - Inhaled Oxygen Concentration - - Weight 48.3 kg (106 lb 6.4 oz) 01/06/2025 12:10 PM EDT Height 152.4 cm (5') 01/06/2025 12:10 PM EDT Body Mass Index 20.78 01/06/2025 12:10 PM EDT documented in this encounter Progress Notes * Samreen Egan MD - 01/06/2025 11:10 AM EDT Images from the original note were not included. Postmenopausal visit Repeat pap Subjective HPI Kaylin Walton is a 74 y.o. female, , who presents as a(n) established patient. She is postmenopausal. Since her last visit the patient underwent surgery for hip replacement. Marital Status: . Patient reports problems with: none . She denies any PMB. Additional ACCOUNT LEADER History On HRT? Yes. Details: Estradiol Last Pap : 01/01/24. Results: ASCUS. HPV: HPV pool + Last Completed Pap Smear This patient has no relevant Health Maintenance data. History of abnormal Pap smear: yes - multiple abnormal paps, colpo's and had LEEP on 11/03/22- negative Family history of uterine, colon, breast, or ovarian cancer: yes - breast- Maternal aunt Performs monthly Self-Breast Exam: yes Last mammogram: 01/01/24. Done at . Has one scheduled for today. Last Completed Mammogram Awaiting Completion MAMMOGRAM (Every 2 Years) Scheduled for 01/06/2025 01/06/2025 Order placed for Mammo Screening Digital Tomosynthesis Bilateral With CAD by Zo Devlin RegSched Rep 01/01/2024 Mammo Screening Digital Tomosynthesis Bilateral With CAD 09/05/2022 Mammo Screening Digital Tomosynthesis Bilateral With CAD 08/23/2021 Mammo Screening Digital Tomosynthesis Bilateral With CAD 08/13/2020 Mammo Screening Digital Tomosynthesis Bilateral With CAD Only the first 5 history entries have been loaded, but more history exists. Last colonoscopy: has had a colonoscopy 5 years ago per patient Last Completed Colonoscopy This patient has no relevant Health Maintenance data. Her last bone density scan was 10/02/23 ago and results were Osteopenia Exercises Regularly: yes- walking Feelings of Anxiety or Depression: no Tobacco Usage?: No Current Outpatient Medications: aspirin 81 MG chewable [...] (ESTRACE VAGINAL) 0.1 MG/GM vaginal cream, Insert 1-2 gm intravaginally 2 times per week,Disp: 1 each, Rfl: 1 folic acid (FOLVITE) 1 MG tablet, Take 1 tablet by mouth Daily., Disp: , Rfl: levothyroxine (SYNTHROID, LEVOTHROID) 75 MCG tablet, Take 1 tablet by mouth Daily., Disp: , Rfl: methotrexate 2.5 MG tablet, Take 6 tablets by mouth 1 (One) Time Per Week., Disp: 24 tablet, Rfl: 0 metoprolol succinate XL (TOPROL-XL) 25 MG 24 hr tablet, Take 1 tablet by mouth Daily. Taking half atablet daily, Disp: , Rfl: potassium chloride (MICRO-K) 10 MEQ CR capsule, Take 1 capsule by mouth Daily., Disp: , Rfl: Probiotic Product ([employer] PO), Take by mouth. 1.5 BILLION CELL [...] tablet by mouth Every 7 (Seven) Days. (Patient not taking: Reported on 01/06/2025), Disp: , Rfl: fluconazole (Diflucan) 150 MG tablet, Take 1 tablet by mouth Daily. Take once, then again 3 days later (Patient not taking: Reported on 01/06/2025), Disp: 2 tablet, Rfl: 0 glucosamine-chondroitin 500-400 MG capsule capsule, Take 1 capsule by mouth Daily. (Patient not taking: Reported on 01/06/2025), Disp: , Rfl: linaclotide (LINZESS) 145 MCG capsule capsule, Take 1 capsule by mouth. (Patient not taking: Reported on 01/06/2025), Disp: , Rfl: LORazepam (ATIVAN) 1 MG tablet, Take 1 tablet by mouth Every 8 (Eight) Hours As Needed for Anxiety.(Patient not taking: Reported on 01/06/2025), Disp: , Rfl: Patient is requesting refills of Estradiol cream. 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 Gilbert with [facility] Headache 2022 High risk medication use 10/02/2023 HPV in female Hyperlipidemia Hypertension Hyperthyroidism Hypothyroidism IBS (irritable bowel syndrome) Low back pain In 1979 s&2022 Had surgery Lumbosacral disc disease 1979& 2022 Osteoporosis Stroke [id number] TIA (transient ischemic attack) x2 -2022 Past Surgical History: Procedure Laterality Date ARTERIAL ANEURYSM REPAIR 2022 BACK SURGERY 1980s&2022 CARDIOVASCULAR SURGERY 2020 stent placement x1 CATARACT EXTRACTION Bilateral CERVICAL DISC SURGERY SECTION CHOLECYSTECTOMY COLONOSCOPY COLPOSCOPY COLPOSCOPY 10/03/2022 DIAGNOSTIC LAPAROSCOPY HIP BIPOLAR REPLACEMENT right INTERVENTIONAL RADIOLOGY PROCEDURE Bilateral 04/24/2023 Procedure: Embolization; Surgeon: Canelo Maldonado MD; Location: [facility] INVASIVE LOCATION; Service: Interventional Radiology; Laterality: Bilateral; Basilar tip aneurysm embolization LAPAROSCOPIC CHOLECYSTECTOMY LEEP 11/03/2022 normal SPINAL FUSION 2022 Surgery at [facility] TOTAL HIP ARTHROPLASTY Left 2023 TUBAL ABDOMINAL LIGATION Health Maintenance Topic Date Due TDAP/TD VACCINES (1 - Tdap) Never done COLORECTAL CANCER SCREENING Never done ZOSTER VACCINE (1 of 2) Never done Pneumococcal Vaccine 50+ (2 of 2 - PPSV23) 02/14/2017 HEPATITIS C SCREENING Never done ANNUAL WELLNESS VISIT Never done LIPID PANEL 04/10/2024 COVID-19 Vaccine (2023- season) 2025 INFLUENZA VACCINE 02/19/2025 MAMMOGRAM 12/31/2025 DXA SCAN 06/12/2026 The additional following portions of the patient's history were reviewed and updated as appropriate: allergies, current medications, past family history, past medical history, past social history, past surgical history, and problem list. Review of Systems Constitutional: Negative. HENT: Negative. Eyes: Negative. Respiratory: Negative. Cardiovascular: Negative. Gastrointestinal: Negative. Endocrine: Negative. Genitourinary: Negative. Musculoskeletal: Negative. Skin: Negative. Allergic/Immunologic: Negative. Neurological: Negative. Hematological: Negative. Psychiatric/Behavioral: Negative. I have reviewed and agree with the HPI, ROS, and historical information as entered above. Objective BP 118/70 Ht 152.4 cm (60 ) Wt 48.3 kg (106 lb 6.4 oz) BMI 20.78 kg/m?? Physical Exam Vitals and nursing note reviewed. Exam conducted with a histology technologist present. Constitutional: Appearance: Normal appearance. HENT: Head: Normocephalic and atraumatic. Pulmonary: Effort: Pulmonary effort is normal. No accessory muscle usage or respiratory distress. Genitourinary: General: Normal vulva. Exam position: Lithotomy position. Labia: Right: No rash, tenderness, lesion or injury. Left: No rash, tenderness, lesion or injury. Urethra: No prolapse, urethral swelling or urethral lesion. Vagina: Normal. No signs of injury and foreign body. No vaginal discharge, erythema, tenderness, bleeding or lesions. Cervix: No cervical motion tenderness, discharge, friability, lesion, erythema or cervical bleeding. Neurological: Mental Status: She is alert. Assessment and Plan Problem List Items Addressed This Visit None Visit Diagnoses History of loop electrical excision procedure (LEEP) - Primary Relevant Medications estradiol (ESTRACE VAGINAL) 0.1 MG/GM vaginal cream Other Relevant Orders LIQUID-BASED PAP SMEAR WITH HPV GENOTYPING IF ASCUS (ARPAN,COR,MAD) Atypical squamous cells of undetermined significance (ASCUS) on Papanicolaou smear of cervix Relevant Medications estradiol (ESTRACE VAGINAL) 0.1 MG/GM vaginal cream Other Relevant Orders LIQUID-BASED PAP SMEAR WITH HPV GENOTYPING IF ASCUS (ARPAN,COR,MAD) Vaginal atrophy Relevant Medications estradiol (ESTRACE VAGINAL) 0.1 MG/GM vaginal cream Other: Doing well on vaginal E, will continue this. Return in about 1 year (around 01/06/2026) for Annual physical. Samreen Egan MD 01/06/2025 documented in this encounter Plan of Treatment Upcoming Encounters Date Type Department Care Team (Late st Contact Info) Description 01/12/2026 11:10 AM EDT Office Visit [facility] OBGYN [address] [place] [address] Samreen Egan MD [facility] [place] [address] documented as of this encounter Procedures Procedure Name Priority Date/Time Associated Diagnosis Comments LIQUID-BASED PAP SMEAR WITH HPV GENOTYPING IF ASCUS, [facility] (ARPAN,COR,MAD) Routine 01/06/2025 1:50 PM EDT History of loop electrical excision procedure (LEEP) Atypical squamous cells of undetermined significance (ASCUS) on Papanicolaou smear of cervix documented in this encounter Results * LIQUID-BASED PAP SMEAR WITH HPV GENOTYPING IF ASCUS (ARPAN,COR,MAD) (01/06/2025 1:50 PM EDT) Reference Lab Report [facility] ---- DIAGNOSIS: Negative for intraepithelial lesion or malignancy Multiple factors can influence accuracy of Pap tests; therefore, screening at regular intervals is necessary for early cancer detection. ---- Adequacy SATISFACTORY FOR EVALUATION Transformation zone is present. Source CERVICAL/ENDOCERVI AAMIR LMP None provided CLINICAL HISTORY: Routine Postmenopausal, Hx/o LEEP, ASCUS on pap smear, Vaginal atrophy The pap smear is a screening test with limited sensitivity, and false negative tests results can occur. ThinPrep Pap imagined by [employer] (AI assisted system). Screened by ELIZABETH VIZCARRA (ASCP) Electronically signed by SOCORRO KING, 01/07/2025 3:10 PM EDT [facility] ThinPrep Vial Collection / Unknown 01/06/2025 1:50 PM EDT 01/06/2025 1:50 PM EDT us Samreen Egan MD PATHOLOGY/CYTOLOGY ORDERABLES Fi nal Result [facility]
[address] [place] [address], documented in this encounter Visit Diagnoses Diagnosis History of loop electrical excision procedure (LEEP)- Primary Atypical squamous cells of undetermined significance (ASCUS) on Papanicolaou smear of cervix Vaginal atrophy Postmenopausal atrophic vaginitis documented in this encounter Care Teams Hairspring Setter Relationship Specialty Start Date End Date Carlton Wyatt MD [address] [facility] [address] [place] [address] PCP - General 07/01/15 documented as of this encounter
--- OUTSIDE RECORDS SUMMARY | 2025-01-06 12:40 | XMS_ITS | Encounter Summary ---
Author Organization [facility] Address [address] [place] [address] Care Team Providers Care Computer Salesperson Retail Name Role Phone Carlton Wyatt MD Primary Care Provider [phone] Reason for Referral * Diagnostic Imaging (Routine) - Closed Specialty Diagnoses / Procedures Referred By Jose guerrier Referred To Contact Radiology Diagnoses Screening mammogram for breast cancer Procedures Mammo Screening Digital Tomosynthesis Bilateral With CAD Carlton Wyatt MD [address] [place] [address] [place] [address] Phone: tel: fax: Referral ID Status Reason Start Date Expiration Date Visits Re quested Visits Authorized [id number] Closed 11/27/2024 02/26/2026 1 1 Reason for Visit * Diagnostic Imaging (Routine) - Closed Specialty Diagnoses / Procedures Referred By Jose guerrier Referred To Contact Radiology Diagnoses Screening mammogram for breast cancer Procedures Mammo Screening Digital Tomosynthesis Bilateral With CAD Carlton Wyatt MD [address] [place] [address] [place] [address] Phone: tel: fax: Referral ID Status Reason Start Date Expiration Date Visits Re quested Visits Authorized [id number] Closed 11/27/2024 02/26/2026 1 1 Encounter Details Date Type Department Care Team (Latest Contact Info) Description 01/06/2025 12:40 PM EDT - 01/06/2025 11:59 PM EDT Hospital Encounter [facility] [address] [place] [address] Carlton Wyatt MD [address] [facility] [address] [place] [address] Screening mammogram for breast cancer Discharge Disposition: Home or Self Care Social [...] or training? Not on file Preferred Language Tristanian 04/25/2023 Comments No Sex and Gender Information [...] PO) Take 2 capsules by mouth Daily. estradiol (ESTRACE VAGINAL) 0.1 MG/GM vaginal creamIndications:V aginal atrophy Insert 1-2 gm intravaginally 2 times per week 1 each 1 5 fluconazole (Diflucan) 150 MG tabletIndications: Acute vaginitis Take 1 tablet by mouth Daily. Take once, then again 3 days later 2 tablet 4 folic acid (FOLVITE) 1 MG tablet Take [...] 8 (Eight) Hours As Needed for Anxiety. methotrexate 2.5 MG tabletIndications: Rheumatoid arthritis of multiple sites without rheumatoid factor Take 6 tablets by mouth 1 (One) Time Per Week. 24 tablet 4 metoprolol succinate XL (TOPROL-XL) 25 MG 24 hr tablet Take 1 tablet by mouth Daily. Taking half a tablet daily potassium chloride (MICRO-K) 10 MEQ CR capsule Take 1 capsule by mouth Daily. Probiotic Product ([employer] PO) Take by mouth. 1.5 BILLION CELL [...] mouth Every 6 (Six) Hours As Needed. documented as of this encounter Plan of Treatment Upcoming Encounters Date Type Department Care Team (Late st Contact Info) Description 01/12/2026 11:10 AM EDT Office Visit [facility] OBGYN [address] [place] [address] Samreen Egan MD [address] [facility] [address] [place] [address] documented as of this encounter Procedures Procedure Name Priority Date/Time Associated Diagnosis Comments MAMMO SCREENING DIGITAL TOMOSYNTHESIS BILATERAL W CAD Routine 01/06/2025 1:05 PM EDT Screening mammogram for breast cancer documented in this encounter Results * Mammo Screening Digital Tomosynthesis Bilateral With CAD (01/06/2025 1:05 PM EDT) Anatomical Region Laterality Modality Breast N/A Mammography 01/07/2025 4:38 PM EDT Impressions 01/07/2025 4:39 PM EDT No suspicious abnormality identified. OVERALL ASSESSMENT: ACR BI-RADS CATEGORY: 1, NEGATIVE: Recommend continued routine annual screening mammogram. The standard false-negative rate of mammography is between 10% and 25%. Complex patterns or increased breast density will markedly elevate the false-negative rate of mammography. A letter, in lay terminology, with the results of this exam will be mailed to the patient. 01/07/2025 4:39 PM by Jessica Eastman MD on Narrative 01/07/2025 4:39 PM EDT BILATERAL DIGITAL SCREENING MAMMOGRAM WITH TOMOSYNTHESIS CLINICAL INDICATION: Screening mammogram. TECHNIQUE: Bilateral low dose full field digital breast tomosynthesis imaging was performed. CAD was utilized. COMPARISON: Prior studies dating back to 07/01/2015. FINDINGS: The breasts are heterogeneously dense, which may obscure small masses. RIGHT BREAST: No suspicious masses, calcifications, or areas of distortion are seen. LEFT BREAST: No suspicious masses, calcifications, or areas of distortion are seen. Carlton Wyatt MD IMG MAMMOGRAPHY ORDERABLES Fin al Result documented in this encounter Visit Diagnoses Diagnosis Screening mammogram for breast cancer documented in this encounter Care Teams Computer Salesperson Retail Relationship Specialty Start Date End Date Carlton Wyatt MD [address] [place] [address] [place] [address] PCP - General 07/01/15 documented as of this encounter
--- OUTSIDE RECORDS SUMMARY | 2025-01-27 10:50 | XMS_ITS | Clinical Summary ---
Author Organization [facility] Address [address] [place] [address] Care Team Providers Care Maintainer Sewer [employer] Waterworks Name Role Phone Carlton Wyatt MD Primary Care Provider [phone] Suzanne Obrien HOUSE DETECTIVE Unavailable Dudley Tena MD Unavailable [phone] Dee Diamond RN Unavailable Unavailable Suzanne Obrien HOUSE DETECTIVE Unavailable [phone] Allergies Active Allergy Reactions Criticality Noted Date [...] (10/13/2021): Added automatically from request for surgery [id number] Primary osteoarthritis of one hip, left 05/16/20 22 Overview (10/04/2021): Added automatically from request for surgery [id number] HTN (hypertension) 07/02/2021 HLD (hyperlipidemia) 07/02/2021 CAD (coronary artery disease) 07/02/2021 Hypothyroidism 07/02/2021 SMOOTH (obstructive sleep apnea) 07/02/2021 Gastroesophageal reflux disease 07/02/2021 Impaired tolerance of activity 07/02/2021 Hip pain 11/27/2019 Resolved Problems Problem Noted Date Diagnosed Date Resolved Date 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 22 07/14/2021 Cervical myelopathy 06/21/2021 07/14/19 22 Overview (06/21/2021): Added automatically from request for surgery [id number] Family History Medical History Relation Name Comments [...] EDT Ovarian Cancer Screening [facility] [address] [facility], [address] [place] [address] Health Maintenance Due Date Last Done Comments [...] (2 of 2 - PPSV23) 02/14/2017 02/15/2016 [id number] Vaccine (8 - Moderna risk 2023- season) [...] [employer] Implanted Type Area Package Crimper Device Identifier Shelf Expiration Date Model / Serial / Lot Knee Vanguard1 Cervical Preservon 7mm - [id number] - [id number] Implanted:Qty: 1 on 07/13/2021 by Dudley Tena MD at [id number] 04/07/2026 [id number] / [id number] / [id number] Graft Vivigen 1cc - [id number] - [id number] Implanted:Qty: 1 on 07/13/2021 by Dudley Tena MD at [facility]-[id number] 06/16/2022 [id number] / [id number] / [id number] Screw Retainer 3.5mm X 14mm - [id number] Implanted:Qty: 2 on 07/13/2021 by Dudley Tena MD at [facility]-[id number] 07/13/2022 [id number] / / Nut Retainer - [id number] Implanted:Qty: 2 on 07/13/2021 by Dudley Tena MD at [facility]-[id number] 07/13/2022 [id number] / / One Level Plate, 12mm - [id number] Implanted:Qty: 1 on 07/13/2021 [facility]-[id number] 07/13/2022 [id number] / / Self Drilling Screw 14mm - [id number] Implanted:Qty: 4 on 07/13/2021 by Dudley Tena MD at [facility] [employer]-[id number] 07/13/2022 [id number] / / Chg Stem Anthology Ho Por Pl H - [id number] Implanted:Qty: 1 on 04/16/2024 by Refugio Do MD at [facility] Left: Hip [employer]-[id number] 08/27/2033 [id number] / / [id number] Chg Head Oxinium Fem 05/04 32m - [id number] Implanted:Qty: 1 on 04/16/2024 by Refugio Do MD at [facility] Left: Hip [employer]-[id number] 03/26/2032 [id number] / / [id number] Chg Liner R3 0 Deg Xlpe Acet 3 - [id number] Implanted:Qty: 1 on 04/16/2024 by Refugio Do MD at [facility] Left: Hip [employer]-[id number] 12/03/2026 [id number] / / [id number] Chg Screw Ref Spher Head 25mm - [id number] Implanted:Qty: 1 on 04/16/2024 by Refugio Do MD at [facility] Left: Hip [id number] 10/20/2033 [id number] / / [id number] Chg Shell R3 3 Hole Acet 50mm - [id number] Implanted:Qty: 1 on 04/16/2024 by Refugio Do MD at [facility] Left: Hip [employer]-[id number] 10/30/2033 [id number] / / [id number] Additional Health Concerns Active Problems Noted Date Diagnosed Date Autogenerated Problem 09/10/2024 Insurance [facility] MEDICARE Advance Directives * Full Code (Latest Code Status on File) Date Activated Date Inactivated Comments 04/16/2024 8:45 AM 04/16/2024 5:10 PM Question Answer Comments Patient has decision-making capacity? Yes * Full Code Date Activated Date Inactivated Comments 07/13/2021 7:47 AM 07/14/2021 3:20 PM Question Answer Comments Patient has decision-making capacity? Yes Care Teams Maintainer [employer] Waterworks Relationship Specialty Start Date End Date Carlton Wyatt MD [address] [place] [address] [address] [place] [address] PCP - General 10/02/20 Suzanne Obrien APRN [address] [place] [address] Nurse Practitioner Neurosurgery 04/30/21 Dudley Tena MD [address] [place] [address] Surgeon Neurosurgery 05/12/21 Dee Diamond RN Registered Nurse 07/13/21 Suzanne Obrien APRN [address] [place] [address] Nurse Practitioner Neurosurgery 08/24/21
--- OUTSIDE RECORDS SUMMARY | 2025-01-27 10:50 | XMS_ITS | Referral Summary ---
Author Organization [facility] ([place], [place], [place], [place]) Address [address] [place] [address] Care Team Providers Care Pattern Worker Name Role Phone Carlton Wyatt MD Primary Care Provider [phone] Allergies Active Allergy Reactions Criticality Noted Date [...] Date Antwon rded Speak language other than Gabonese at home Not on file 06/01/2023 Want [...] Not on file Insurance [employer] MEDICARE PPO [facility] Advance Directives For more information, please contact: [phone] * Full Code (Latest Code Status on File) Date Activated Date Inactivated Comments 03/04/2023 5:43 PM 03/06/2023 4:53 PM -Attempt R esuscitation if person has no pulse and is not breathing. -If no pulse or not breathing attempt CPR/CODE. -Call Rapid Response if patient is in distress. Care Teams Pattern Worker Relationship Specialty Start Date End Date Carlton Wyatt MD [address] [place] [address] [place] [address] PCP - General General Internal Medicine 03/04/23
--- OUTSIDE RECORDS SUMMARY | 2025-01-27 10:50 | XMS_ITS | Clinical Summary ---
Author Organization [employer] [facility] ([place], [place], [place], [place]) Address [address] [place] [address] Care Team Providers Care Recovery Rn Name Role Phone Carlton Wyatt MD Primary Care Provider [phone] Allergies Active Allergy Reactions Criticality Noted Date [...] Date Antwon rded Speak language other than Upper Sorbian at home Not on file 06/01/2023 Want [...] Pneumococcal 50+ years (2 of 2 - PPSV23, PCV20, or PCV21) 04/11/2016 02/15/2016 Tobacco Cessation Counseling and Screening (12+) 03/04/2024 03/04/2023 Falls Risk Screening 05/22/2024 COVID-19 VACCINE (6 - 2024-2 6 season) 2025 03/16/2022, 12/14/2021, 03/24/2021, Additional history exists Influenza Vaccine (#1) 2025 02/15/2016 Insurance [facility] MEDICARE PPO [facility] Advance Directives For more information, please contact: [phone] * Full Code (Latest Code Status on File) Date Activated Date Inactivated Comments 03/04/2023 5:43 PM 03/06/2023 4:53 PM -Attempt R esuscitation if person has no pulse and is not breathing. -If no pulse or not breathing attempt CPR/CODE. -Call Rapid Response if patient is in distress. Care Teams Recovery Rn Relationship Specialty Start Date End Date Carlton Wyatt MD [address] [place] [address] [place] [address] PCP - General General Internal Medicine 03/04/23
--- OUTSIDE RECORDS SUMMARY | 2025-01-27 10:50 | XMS_ITS | Clinical Summary ---
Author Organization [facility] Address [address] [place] [address] Care Team Providers Care Glove Pairer Name Role Phone Carlton Wyatt MD Primary Care Provider [phone] Allergies Active Allergy Reactions Criticality Noted Date Comments Sulfa Antibiotics Headache Low 08/13/2020 Medications calcium carbonate (OS-AAMIR) 600 MG tablet Take 1 tablet by mouth Daily. Active LORazepam (ATIVAN) 1 MG tablet Take 1 tablet by mouth Every 8 (Eight) Hours As Needed for Anxiety. Active glucosamine-calli droitin 500-400 MG capsule capsule Take 1 capsule by mouth Daily. Active metoprolol succinate XL (TOPROL-XL) 25 MG 24 hr tablet Take 1 tablet by mouth Daily. Taking half a tablet daily Active potassium chloride (MICRO-K) 10 MEQ CR [...] Take 1 tablet by mouth Daily. Active brimonidine-bobby lol (COMBIGAN) 0.2-0.5 % ophthalmic solution Administer 1 drop to both eyes Every 12 (Twelve) Hours. Active Probiotic Product ([employer] PO) Take by mouth. 1.5 BILLION CELL [...] by mouth. Active fluconazole (Diflucan) 150 MG tabletIndication s:Acute vaginitis Take 1 tablet by mouth Daily. Take once, then again 3 days later 2 tablet 01/31/20 24 Active Additional Information Patient not taking.Reported on 01/06/2025 methotrexate 2.5 MG tabletIndication s:Rheumatoid arthritis of multiple sites without rheumatoid factor Take 6 tablets by mouth 1 (One) Time Per Week. 24 tablet 02/09/20 24 Active estradiol (ESTRACE VAGINAL) 0.1 MG/GM vaginal creamIndications :Vaginal atrophy Insert 1-2 gm intravaginally 2 times per week 1 each 1 01/07/20 25 Active estradiol (ESTRACE VAGINAL) 0.1 MG/GM vaginal creamIndications :Vaginal atrophy Insert 2-3 gm intravaginally 2 times per week 1 each 1 07/08/19 25 025 Discontin ued(Reord er) Active Problems Problem Noted Date Diagnosed Date Generalized osteoarthrosis, involving multiple s ites 10/03/2023 Assessment & Plan (10/03/2023 1:38 PM EDT): She has had a fusion of her cervical spine in 06/23/[address] [facility] without rheumatoid factor 10/02/2023 Assessment & [...] are stable. Request most recent labs from [facility] which she does every 3 months. History [...] 1:38 PM EDT): 03/2023 was hospitalized at [facility] and had cerebral aneurysm coiled Basilar artery [...] Encounters Date Type Department Care Team Description 01/06/2025 12:40 PM EDT - 01/06/2025 11:59 PM EDT Hospital Encounter [facility] [address] [place] [address] Carlton Wyatt MD Screening mammogram for breast cancer Discharge Disposition: Home or Self Care 01/06/2025 11:10 AM EDT Office Visit [facility] [address] [address] Samreen Egan MD History of loop electrical excision procedure (LEEP) (Primary Dx); Atypical squamous cells of undetermined significance (ASCUS) on Papanicolaou smear of cervix; Vaginal atrophy 01/06/2025 Travel from Last 3 Months Immunizations Immunization Administration Dates Next Due Influenza, Unspecified 01/20/2021 Family History Medical History Relation Name Comments Osteoporosis Brother 1 60's Cancer Brother 2 Wesley arndt Had surgery/ prostrate Stroke Brother 3 Wesley Heart attack Father Breast cancer Maternal Aunt Arthritis Mother Aderodney Knees Asthma Mother Aderodney Was on oxygen COPD Mother Adeena Heart disease Mother Javi Stint put in Osteoporosis Mother Aderodney Vision loss Mother Javi Had glaucoma Anemia Sister Paola Salas and myself Ovarian cancer Neg Hx Relation Name Status Comments Brother 1 Other prostate Brother 2 Wesleyjeanine pereaams Alive Brother 3 Wesley Father Maternal Aunt Mother Javi Sister Paola Salas and myself Alive Social [...] or training? Not on file Preferred Language Azerbaijani 04/25/2023 Comments No Sex and Gender Information [...] Pressure 118/70 01/06/2025 12:10 PM EDT Pulse 63 01/29/2024 11:27 AM EDT Temperature 36.9 C (98.4 F) 10/21/2024 2:15 PM EDT Respiratory Rate 15 04/25/2023 12:00 AM EST Oxygen Saturation 98% 04/25/2023 9:30 AM EST Inhaled Oxygen Concentration - - Weight 48.3 kg (106 lb 6.4 oz) 01/06/2025 12:10 PM EDT Height 152.4 cm (5') 01/06/2025 12:10 PM EDT Body Mass Index 20.78 01/06/2025 12:10 PM EDT Plan of Treatment Upcoming Encounters Date Type Department Care Team (Late st Contact Info) Description 01/12/2026 11:10 AM EDT Office Visit [facility] OBGYN [address] [place] [address] Samreen Egan MD [address] [facility] [address] [place], [place] [id number] Health Maintenance Due Date Last Done Comments [...] PANEL 04/10/2024 04/10/2023, 02/19, 03/05/2023 COVID-19 Vaccine (2023-2 5 season) 2025 07/10/2024, 03/27/2023, 03/16/2022, Additional history exists INFLUENZA VACCINE 02/19/2025 07/09/2024, , 01/20/2021, Additional history exists DXA SCAN 06/12/2026 06/12/2024, 09/19, 10/02/2023 MAMMOGRAM 01/06/2027 01/06/2025, 12/20, 09/05/2022, Additional history exists Medical Devices Implanted Type Area Boring Machine Operator Horizontal Device Identifier Shelf Expiration Date Model / Serial / Lot Complexcoil Adv Hypersoft 3d W/Vtrak Ds Sz10 5mm 15cm - [id number] Implanted:Qty: 1 on 04/24/2023 by Canelo Maldonado MD at [facility] Implant Brain [employer] 01/20/2024 [id number] / / [id number] Coil Complex [id number] Advanced Plat 4mm 8cm - [id number] Implanted:Qty: 1 on 04/24/2023 by Canelo Maldonado MD at [facility] Implant Brain [employer] 3D FUTURE VISION II BRIGHT 12/19/2024 [id number] / / [id number] Complexcoil Adv Hypersoft 3d W/Vtrak Ds Sz10 3.5mm 8cm - [id number] Implanted:Qty: 1 on 04/24/2023 by Canelo Maldonado MD at [facility] Implant [employer] [id number] / / [id number] Complexcoil Adv Hypersoft 3d W/Vtrak Ds Sz10 3.5mm 8cm - [id number] Implanted:Qty: 1 on 04/24/2023 by Canelo Maldonado MD at [facility] Implant [employer] [id number] / / [id number] Complexcoil Adv Hypersoft 3d W/Vtrak Ds Sz10 2mm 2cm - [id number] Implanted:Qty: 1 on 04/24/2023 by Canelo Maldonado MD at [facility] Implant Brain [employer] 09/18/2025 [id number] / / [id number] Procedures Procedure Name Priority Date/Time Associated Diagnosis Comments LIQUID-BASED PAP SMEAR WITH HPV GENOTYPING IF ASCUS, [facility] ([facility]) Routine 01/06/2025 1:50 PM EDT History of loop electrical excision procedure (LEEP) Atypical squamous cells of undetermined significance (ASCUS) on Papanicolaou smear of cervix MAMMO SCREENING DIGITAL TOMOSYNTHESIS BILATERAL W CAD Routine 01/06/2025 1:05 PM EDT Screening mammogram for breast cancer SCANNED - DEXA Routine 10/02/2023 4:54 PM EDT LIPID PANEL Routine 04/10/2023 6:41 AM EST from Last 3 Months or Most Recently Relevant to Health Maintenance Results * LIQUID-BASED PAP SMEAR WITH HPV GENOTYPING IF ASCUS ([facility]AD) (01/06/2025 1:50 PM EDT) Reference Lab Report FINAL FITNESS ATTENDANT CYTOLOGY REPORT ---- DIAGNOSIS: Negative for intraepithelial [...] results can occur. ThinPrep Pap imagined by [employer] (AI assisted system). Screened by ELIZABETH VIZCARRA (ASCP) Electronically signed by SOCORRO KING, 01/07/2025 3:10 PM EDT [facility] ThinPrep Vial Collection / Unknown 01/06/2025 1:50 PM EDT 01/06/2025 1:50 PM EDT us Samreen Egan MD PATHOLOGY/CYTOLOGY ORDERABLES Fi nal Result [facility]
[address] [place] [address], [place] [phone] * Mammo Screening Digital Tomosynthesis Bilateral With [...] of distortion are seen. Carlton Wyatt MD IM MAMMOGRAPHY ORDERABLES Fin al Result * DEXA Scan (10/02/2023 4:54 PM EDT) Anatomical Region Laterality Modality Other Historical Provider CHART REVIEW TABS Ofelia l Result * (ABNORMAL) Lipid Panel (04/10/2023 6:41 AM EST) Total Cholesterol 183 0 - 200 mg/dL 04/10/2023 7:44 AM EST [facility] Triglycerides 120 0 - 150 mg/dL 04/10/2023 7:44 AM EST [facility] HDL Cholesterol 68(H) 40 - 60 mg/dL 04/10/2023 7:44 AM EST [facility] LDL Cholesterol 94 0 - 100 mg/dL 04/10/2023 7:44 AM EST [facility] VLDL Cholesterol 21 5 - 40 mg/dL 04/10/2023 7:44 AM EST [facility] LDL/HDL Ratio 1.34 04/10/2023 7:44 AM EST [facility] Blood Venipuncture / Unknown 04/10/2023 6:41 AM EST 04/10/2023 7:01 AM EST [facility] - 04/10/2023 7:44 AM EST [...] mg/dL Very High >189 mg/dL Kristan Peterson MANAGER LEGAL LAB BLOOD ORDERABLES Fin al Result [facility]
[address] [place] [address], from Last 3 Months or Most Recently Relevant to Health [place] [address] [employer] MEDICARE ADVANTAGE PPO Advance Directives * CPR [...] of Kin (If No Surrogate) Care Teams Glove Pairer Relationship Specialty Start Date End Date Carlton Wyatt MD [address] [facility] [address] [place] [address] PCP - General 07/01/15
--- OUTSIDE RECORDS SUMMARY | 2025-01-27 10:50 | XMS_ITS | Encounter Summary ---
Author Organization [facility] Address [address] [place] [address] Care Team Providers Care Manager Risk Management Name Role Phone Carlton Wyatt MD Primary Care Provider [phone] Encounter Details Date Type Department Care Team (Latest Contact Info) Description 01/06/2025 Travel Social History Tobacco Use Types Packs/Day [...] Description 01/12/2026 11:10 AM EDT Office Visit [facility] OBGYN [address] [place] [address] Samreen Egan MD [address] [facility] [address] [place] [address] documented as of this encounter Visit Diagnoses Not on filedocumented in this encounter Care Teams Manager Risk Management Relationship Specialty Start Date End Date Carlton Wyatt MD [address] [facility] [address] [place] [address] PCP - General 07/01/15 documented as of this encounter
== END 2025-01-26 23:59 | disposition home or self-care (01) ==
LOC: LAB.DROPOF 01-27 10:46
PROVIDERS: PCP Student in an Organized Health Care Education/Training Program; Visit Provider Student in an Organized Health Care Education/Training Program
DX: N39.0 Urinary tract infection, site not specified (principal)
CPT/HCPCS: 87086; 87088; 87186

== ENCOUNTER 2025-04-07 08:10 | Outpatient (CLI) | payer MEDICARE, OTHER, SELFPAY ==
[2025-04-07 09:00] LABS: Hematocrit 37.0 % (37.0-47.0); Hemoglobin 12.1 g/dL (12.2-16.2); Immature Granulocytes % 0.4 %; Mean Corpuscular HGB Conc 32.7 g/dL (31.8-35.4); Mean Corpuscular Hemoglobin 32.0 pg (27.0-31.2); Mean Corpuscular Volume 97.9 fl (81-99); Nucleated Red Blood Cells % 0 %; Platelet Count 218 K/mm3 (142-424); Red Blood Count 3.78 M/mm3 (4.20-5.40); Red Cell Distribution Width-SD 47.9 fL; White Blood Count 4.7 K/mm3 (4.8-10.8)
[2025-04-07 09:49] LABS: Alanine Aminotransferase 52 U/L (12-78); Albumin Level 4.6 g/dl (3.5-5.0); Albumin/Globulin Ratio 1.8 (1.1-1.8); Alkaline Phosphatase 49 U/L (38-126); Anion Gap 11.8 mEq/L (5-15); Aspartate Amino Transferase 53 U/L (14-36); Bilirubin,Total 0.5 mg/dl (0.2-1.3); Blood Urea Nitrogen 24 mg/dl (7-17); Calcium 9.9 mg/dl (8.4-10.2); Carbon Dioxide 30 mmol/L (22.0-30.0); Chloride 99 mmol/L (98-107); Creatinine,Serum 1.10 mg/dl (0.52-1.04); Estimated Glomerular Filt Rate 49 ml/min (>60); GFR (African American) 59 ML/MIN (>60); Globulin 2.6 g/dL (1.3-3.2); Glucose 78 mg/dl (74-100); Potassium 3.8 mmoL/L (3.5-5.1); Sodium 137 mmol/L (136-145); Total Protein,Serum 7.2 g/dl (6.3-8.2)
[2025-04-07 09:56] LABS: C-Reactive Protein 2.1 mg/L (0-4)
[2025-04-07 15:37] LABS: Thyroid Stimulating Hormone 0.89 uIU/mL (0.465-4.68)
== END 2025-04-07 23:59 | disposition home or self-care (01) ==
PROVIDERS: PCP Internal Medicine; Visit Provider Internal Medicine Rheumatology
DX: E03.9 Hypothyroidism, unspecified (principal); Z79.899 Other long term (current) drug therapy
CPT/HCPCS: 36415; 80053; 84443; 85025; 85651; 86140